=== PATIENT | female | born 1985 | race Caucasian/White ===

== ENCOUNTER 2022-10-14 13:38 | Outpatient (REF) | payer OTHER, SELFPAY ==
[2022-10-14 15:34] LABS: Occult Blood Negative
== END 2022-10-14 13:39 ==
LOC: LAB 13:38
PROVIDERS: PCP Nurse Practitioner; Visit Provider Nurse Practitioner
DX: R19.5 Other fecal abnormalities (principal)
CPT/HCPCS: G0328

== ENCOUNTER 2023-01-13 09:58 | Outpatient (OUT) | payer OTHER, SELFPAY ==
[2023-01-13 11:11] LABS: Anion Gap 14.7; BUN Creatinine Ratio 15.3; Calcium 8.9 mg/dL (8.5-10.1); Carbon Dioxide 26.1 mmol/L (21.0-32.0); Chloride 104 mmol/L (98-107); Estimated GFR (African America >60 (>=60); Estimated GFR (Non-African Ame >60 (>=60); Glucose 93 mg/dL (74-106); Potassium 3.8 mmol/L (3.5-5.1); Sodium 141 mmol/L (136-145)
== END 2023-01-13 09:59 | disposition home or self-care (01) ==
LOC: LAB 10:01
PROVIDERS: PCP Nurse Practitioner; Visit Provider Nurse Practitioner
DX: R42 Dizziness and giddiness (principal)
CPT/HCPCS: 36415; 80048

== ENCOUNTER 2023-03-03 12:07 | Outpatient (OUT) | payer OTHER, SELFPAY ==
--- NOTE | 2023-03-03 12:30 | XR_ITS ---
The [address] [address] Patient Name: ALAN BRAVO MRN: [id number] date: 1985 Sex: F Assigned Patient Location: LAB Current Patient Location: LAB Accession/Order Number: [id number] Exam Date: 03/03/2023 12:20 Report Date: 03/03/2023 13:57 At the request of: MONY SPARROW Procedure: XR abdomen 1V EXAM: XR abdomen 1V HISTORY: left flank pain COMPARISON: None. TECHNIQUE: AP view of the abdomen. FINDINGS: Nonobstructive bowel gas pattern is noted. There is no suspicious calcification. The osseous structures are intact. XR/XR abdomen 1V IMPRESSION: Nonobstructive bowel gas pattern. Electronically authenticated by: JENNIFER TURNER Date: 03/03/2023 13:57
[2023-03-03 12:41] LABS: Bilirubin Urine NEGATIVE (NEGATIVE); Blood Urine NEGATIVE (NEGATIVE); Clarity Urine CLEAR (CLEAR); Color Urine LT. YELLOW (YELLOW); Glucose Urine UA NEGATIVE (NEGATIVE); Ketones Urine NEGATIVE (NEGATIVE); Leukocyte Esterase Urine TRACE (NEGATIVE); Nitrite Urine NEGATIVE (NEGATIVE); Protein Urine NEGATIVE (NEG/TRACE); Urobilinogen Urine 0.2 EU/dL (0.2-1.0); pH Urine 6.5 (5.0-9.0)
[2023-03-03 12:49] LABS: Bacteria Urine NONE SEEN #/HPF (NONE SEEN); Cast Seen? NONE SEEN #/LPF (NONE SEEN); Crystals Seen? None Seen #/HPF (None Seen); Mucus Urine NONE SEEN (NONE SEEN); RBC Urine NONE SEEN #/HPF (0-2); Squamous Epithelial Cell Urine FEW #/LPF (NONE/RARE); WBC Urine NONE SEEN #/HPF (NONE SEEN)
== END 2023-03-03 12:08 | disposition home or self-care (01) ==
LOC: LAB 12:08
PROVIDERS: PCP Nurse Practitioner; Visit Provider Nurse Practitioner
DX: R10.9 Unspecified abdominal pain (principal)
CPT/HCPCS: 74018; 81001; 87086

== ENCOUNTER 2023-10-14 11:36 | Outpatient (OUT) | payer OTHER, SELFPAY ==
[2023-10-14 12:09] LABS: Basophils Percent Auto 0.3 % (0.2-2.0); Eosinophils Absolute Auto 0.1 10^3/uL (0.0-0.7); Eosinophils Percent Auto 1.3 % (0.9-7.0); Hematocrit 38.4 % (36.0-48.0); Hemoglobin 13.2 g/dL (12.0-16.0); Immature Granulocytes Abs Auto 0.03 10^3/uL (0.00-0.03); Immature Granulocytes Pct Auto 0.3 % (0.0-0.5); Lymphocytes Percent Auto 20.6 % (20.5-60.0); Mean Corpuscular HGB Conc 34.4 g/dL (29.9-35.2); Mean Corpuscular Hemoglobin 29.3 pg (26.7-34.0); Mean Corpuscular Volume 85.1 fL (81.0-99.0); Mean Platelet Volume 9.5 fL (9.5-13.5); Monocytes Absolute Auto 0.6 10^3/uL (0.3-0.8); Monocytes Percent Auto 6.1 % (1.7-12.0); Neutrophils Absolute Auto 6.8 10^3/uL (1.4-6.5); Neutrophils Percent Auto 71.4 % (43.0-75.0); Platelet Count 342 10^3/uL (150-450); Red Blood Count 4.51 10^6/uL (4.20-5.40); Red Cell Distribution Width 12.8 % (11.0-15.0); White Blood Count 9.6 10^3/uL (4.0-11.0)
[2023-10-14 12:25] LABS: Estimated Average Glucose 97 mg/dL
[2023-10-14 12:37] LABS: Free T4 0.97 ng/dL (0.76-1.46); HCG Quantitative <1 mIU/mL; Thyroid Stimulating Hormone 1.581 uIU/mL (0.358-3.740)
[2023-10-15 04:08] LABS: DHEA-Sulfate 60.5 ug/dL (57.3-279.2); FSH 8.2 mIU/mL (.)
[2023-10-15 13:12] LABS: Luteinizing Hormone(LH) 4.8 mIU/mL (.)
[2023-10-20 11:08] LABS: DHEA, Serum 242 ng/dL (31-701)
== END 2023-10-14 11:37 | disposition home or self-care (01) ==
LOC: LAB 11:36
PROVIDERS: PCP Nurse Practitioner; Visit Provider Obstetrics & Gynecology
DX: E28.2 Polycystic ovarian syndrome (principal)
CPT/HCPCS: 36415; 82626; 82627; 83001; 83002; 83036; 84439; 84443; 84702; 85025

== ENCOUNTER 2023-10-27 16:52 | Outpatient (OUT) | payer OTHER, SELFPAY ==
--- NOTE | 2023-10-27 16:56 | US_ITS ---
The [address] [address] Patient Name: ALAN BRAVO MRN: [id number] date: 1985 Sex: F Assigned Patient Location: US Current Patient Location: Accession/Order Number: [id number] Exam Date: 10/27/2023 17:06 Report Date: 10/29/2023 07:45 At the request of: BRE MAS Procedure: US pelvis w/ transvaginal EXAMINATION: US pelvis w/ transvaginal HISTORY: Polycystic Ovarian Syndrome E28.2 COMPARISON: Ultrasound pelvis 05/02/2017 TECHNIQUE: Transabdominal and/or transvaginal sonographic examination was performed as indicated by examination type. FINDINGS: UTERUS: Normal size and appearance. Multiple nabothian cysts within sin of cervix, largest is 1.6 cm. Uterus size: 11.0 x 5.8 x 6.3 cm ENDOMETRIUM: Normal homogeneous appearance. Endometrial thickness: 8 mm RIGHT OVARY: Normal size and appearance. Duplex Doppler demonstrates normal waveform and flow; resistive index 0.6. Ovary size: 3.3 x 2.2 x 2.4 cm LEFT OVARY: Not seen. Obscuring overlying bowel gas. . CUL-DE-SAC: Unremarkable. No significant free fluid. BLADDER: Unremarkable. OTHER: None. US/US pelvis w/ transvaginal IMPRESSION: 1. The left ovary was not seen (obscured by overlying bowel gas), but right ovary shows no evidence of polycystic ovarian disease. Electronically authenticated by: ABDIEL GUTIERREZ Date: 10/29/2023 07:45
--- OUTSIDE RECORDS SUMMARY | 2023-10-27 16:56 | XMS_ITS | CCD ---
Author Organization [facility] Care Team Providers Care Electric Meter Reader Name Role Phone MISC, DOCTOR Attending Unavailable MISC, DR STOCKTON Consulting Unavailable MISC, DR STOCKTON Admitting Unavailable AICHHOLZ, DRY KILN FEEDER MONY Primary Care Unavailable KARASIK ., DR OLIVER Consulting Unavailabl e KARASIK ., DR OLIVER Admitting Unavailabl e AICHHOLZ, DRY KILN FEEDER MONY Primary Care Unavailable KARASIK ., DR OLIVER Attending Unavailabl e AICHHOLZ, DRY KILN FEEDER MONY Admitting Unavailable AICHHOLZ, DRY KILN FEEDER MONY Attending Unavailable AICHHOLZ, DRY KILN FEEDER MONY Primary Care Unavailable KARASIK ., DR OLIVER Admitting Unavailabl e AICHHOLZ, DRY KILN FEEDER MONY Primary Care Unavailable KARASIK ., DR OLIVER Attending Unavailabl e AICHHOLZ, DRY KILN FEEDER MONY Admitting Unavailable AICHHOLZ, DRY KILN FEEDER MONY Attending Unavailable AICHHOLZ, DRY KILN FEEDER MONY Consulting Unavailable AICHHOLZ, DRY KILN FEEDER MONY Primary Care Unavailable AICHHOLZ, DRY KILN FEEDER MONY Admitting Unavailable AICHHOLZ, DRY KILN FEEDER MONY Attending Unavailable AICHHOLZ, DRY KILN FEEDER MONY Consulting Unavailable AICHHOLZ, DRY KILN FEEDER MONY Primary Care Unavailable BRE MAS Attending Unavailable Allergies Allergy Classification Reported Allergen(s) Allergy Type Date of Onset Reaction(s) Facility (1 source) Amoxicillin Drug Allergy 04-19-2015 [facility] Repository Problems Active Problems Problem Classification Problem Date Documented Da te Episodic/Chronic Essential hypertension (4 sources) Essential (primary) hypertension; Translations: [ESSENTIAL PRIMARY HYPERTENSION] Onset: 07-18-2022 Chronic Menstrual disorders (1 source) Excessive and frequent menstruation with irregular cycle; Translations: [EXCESS AND FREQ MEN W/IRREG CYCLE] Onset: 07-01-2022 Chronic Nutritional deficiencies (1 source) Vitamin D deficiency, unspecified; Translations: [VITAMIN D DEFICIENCY UNSPECIFIED] Onset: 2022 Chronic Other gastrointestinal disorders (4 sources) Other fecal abnormalities; Translations: [OTHER FECAL ABNORMALITIES] Onset: 09-10-2022 Episodic Other gastrointestinal disorders (4 sources) Diarrhea, unspecified; Translations: [DIARRHEA UNSPECIFIED] Onset: 09-06-2022 Episodic Other nutritional; endocrine; and metabolic disorders (1 source) Obesity, unspecified; Translations: [OBESITY UNSPECIFIED] Onset: 2022 Chronic Other and delivery including normal (4 sources) Encounter for care and examination of lactating mother; Translations: [ENC CARE AND EXAM LACTATING MOTHER] Onset: 09-24-2022 Episodic Past or Other Problems Problem Classification Problem Date Documented Date Episodic/Chronic Immunizations and screening for infectious disease (1 source) Encounter for screening for human papillomavirus (HPV); Translations: [ENC SCREENING HUMAN PAPILLOMAVIRUS] Onset: 11-12-2021 Episodic Other endocrine disorders (4 sources) Endocrine disorder, unspecified; Translations: [ENDOCRINE DISORDER UNSPECIFIED] Onset: 06-27-2022 Episodic Other nutritional; endocrine; and metabolic disorders (1 source) Abnormal weight gain; Translations: [ABNORMAL WEIGHT GAIN] Onset: 07-01-2022 Episodic Other screening for suspected conditions (not mental disorders or infectious disease) (4 sources) Encounter for screening for malignant neoplasm of cervix; Translations: [ENC SCREENING MALIG NEOPLASM CERV] Onset: 11-09-2021 Episodic Other skin disorders (1 source) Hirsutism; Translations: [HIRSUTISM] Onset: 07-01-2022 Episodic Residual codes; unclassified (1 source) Insomnia, unspecified; Translations: [INSOMNIA UNSPECIFIED] Onset: 07-01-2022 Episodic Residual codes; unclassified (1 source) Other amnesia; Translations: [OTHER AMNESIA] Onset: 07-01-2022 Episodic Results Test Name Value Interpretation Reference Range Facil ity OVA AND PARASITE EXAMINATION on 09-12-2022 Ova + Parasite Exam Final report Normal [facility] Comment on above: Result Comment: Thes e results were obtained using wet preparation(s) and trichrome stained smear. This test does not include testing for Cryptosporidium parvum, Cyclospora, or Microsporidia. Performed By: #### O VERA #### [facility] [address] [place] [address] Dr. Awilda Bryant Result 1 Comment Normal [facility] Comment on above: Result Comment: No o va, cysts, or parasites seen. . One negative specimen does not rule out the possibility of a parasitic infection. Performed By: #### O VAPE #### [facility] [address] [place] [address] Dr. Awilda Bryant STOOL CULTUREon 09-10-2022 Campylobacter Culture Final report Normal [facility] Comment on above: Performed By: #### T POAB #### [facility] [address] [place] [address] Dr. Awilda Bryant E coli Shiga Toxin EIA Negative Normal Negative [facility] Comment on above: Performed By: #### T POAB #### [facility] [address] [place] [address] Dr. Awilda Bryant Result 1 Comment Normal [facility] Comment on above: Result Comment: No S almonella or Shigella recovered. Performed By: #### T POAB #### [facility] [address] [place] [address] Dr. Awilda Bryant Result Comment: No C ampylobacter species isolated. Salmonella/Shigella Screen Final report Normal [facility] Comment on above: Performed By: #### T POAB #### [facility] [address] [place] [address] Dr. Awilda Bryant C. DIFF PCRon 09-06-2022 C. DIFFICILE PCR Negative Normal NEGATIVE [facility] Comment on above: Performed By: #### C DIFPOC #### [facility] [address] [place] [address] Dr. Awilda Bryant OCC BLD IMMUNO SCREENon 08-26 OCCULT BLOOD Positive Abnormal NEGATIVE [facility] Comment on above: Performed By: #### C DIFPOC #### [facility] [address] [place] [address] Dr. Awilda Bryant CBC AUTO DIFFon 07-18-2022 BASO # 0.1 103/ul Normal 0.0-0.1 [facility] Comment on above: Performed By: #### C DIFPOC #### [facility] [address] [place] [address] Dr. Awilda Bryant Basophils/100 WBC (Bld) 0.7 % Normal 0.2-2.0 [facility] Comment on above: Performed By: #### C DIFPOC #### [facility] [address] [place] [address] Dr. Awilda Bryant EO # 0.1 103/ul Normal 0.0-0.7 [facility] Comment on above: Performed By: #### C DIFPOC #### [facility] [address] [place] [address] Dr. Awilda Bryant Eosinophils/100 WBC (Bld) 1.9 % Normal 0.9-7.0 [facility] Comment on above: Performed By: #### C DIFPOC #### [facility] [address] [place] [address] Dr. Awilda Bryant Erythrocyte distribution width (RBC) [Ratio] 12.7 % Normal 11.0-15.0 [facility] Comment on above: Performed By: #### C DIFPOC #### [facility] [address] [place] [address] Dr. Awilda Bryant Hematocrit (Bld) [Volume fraction] 41.9 % Normal 36.0-48.0 [facility] Comment on above: Performed By: #### C DIFPOC #### [facility] [address] [place] [address] Dr. Awilda Bryant Hemoglobin (Bld) [Mass/Vol] 14.7 g/dL Normal 12.0-16.0 [facility] Comment on above: Performed By: #### C DIFPOC #### [facility] [address] [place] [address] Dr. Awilda Bryant IG # 0.02 10e3/ul Normal 0.00-0.03 [facility] Comment on above: Performed By: #### C DIFPOC #### [facility] [address] [place] [address] Dr. Awilda Bryant IG % 0.3 % Normal 0.0-0.5 [facility] Comment on above: Performed By: #### C DIFPOC #### [facility] [address] [address] [address] Awilda Bryant LYMPH # 2.1 103/ul Normal 1.2-3.8 [facility] Comment on above: Performed By: #### C DIFPOC #### [facility] [address] [place] [address] Dr. Awilda Bryant Lymphocytes/100 WBC (Bld) 31.4 % Normal 20.5-60.0 [facility] Comment on above: Performed By: #### C DIFPOC #### [facility] [address] [place] [address] Dr. Awilda Bryant MANUAL DIFF REQ NO Normal [facility] Comment on above: Performed By: #### C DIFPOC #### [facility] [address] [place] [address] Dr. Awilda Bryant MCH (RBC) [Entitic mass] 29.7 pg Normal 26.7-34.0 [facility] Comment on above: Performed By: #### C DIFPOC #### [facility] [address] [place] [address] Dr. Awilda Bryant MCHC (RBC) [Mass/Vol] 35.1 g/dL Normal 29.9-35.2 [facility] Comment on above: Performed By: #### C DIFPOC #### [facility] [address] [place] [address] Dr. Awilda Bryant MCV (RBC) [Entitic vol] 84.6 fL Normal 81.0-99.0 [facility] Comment on above: Performed By: #### C DIFPOC #### [facility] [address] [place] [address] Dr. Awilda Bryant MONO # 0.5 103/ul Normal 0.3-0.8 [facility] Comment on above: Performed By: #### C DIFPOC #### [facility] [address] [place] [address] Dr. Awilda Bryant Monocytes/100 WBC (Bld) 7.5 % Normal 1.7-12.0 [facility] Comment on above: Performed By: #### C DIFPOC #### [facility] [address] [address] [address] Awilda Bryant NEUT # 4.0 103/ul Normal 1.4-6.5 [facility] Comment on above: Performed By: #### C DIFPOC #### [facility] [address] [address] [address] Awilda Bryant Neutrophils/100 WBC (Bld) 58.2 % Normal 43.0-75.0 [facility] Comment on above: Performed By: #### C DIFPOC #### [facility] [address] [place] [address] Dr. Awilda Bryant Platelet mean volume (Bld) [Entitic vol] 9.8 fL Normal 9.5-13.5 [facility] Comment on above: Performed By: #### C DIFPOC #### [facility] [address] [place] [address] Dr. Awilda Bryant PLT 344 103/ul Normal 150-450 [facility] Comment on above: Performed By: #### C DIFPOC #### [facility] [address] [place] [address] Dr. Awilda Bryant RBC 4.95 106/ul Normal 4.20-5.40 [facility] Comment on above: Performed By: #### C DIFPOC #### [facility] [address] [place] [address] Dr. Awilda Bryant WBC 6.8 103/ul Normal 4.0-11.0 [facility] Comment on above: Performed By: #### C DIFPOC #### [facility] [address] [place] [address] Dr. Awilda Bryant LIPID PROFILEon 07-18-2022 CHOL-HDL RATIO NORM SEE BELOW Normal [facility] Comment on above: Result Comment: 3.3 - 4.4 LOW RISK 4.4 - 7.1 AVERAGE RISK 7.1 - 11.0 MODERATE RISK >11.0 HIGH RISK Performed By: #### T POAB #### [facility] [address] [place] [address] Dr. Awilda Bryant Cholesterol [Mass/Vol] 159 mg/dL Normal <=200 [facility] Comment on above: Performed By: #### T POAB #### [facility] [address] [address] [address] Awilda Bryant Cholesterol in HDL [Mass/Vol] 40 mg/dL Normal 40-60 [facility] Comment on above: Performed By: #### T POAB #### [facility] [address] [address] [address] Awilda Bryant Cholesterol in LDL [Mass/Vol] 102.2 mg/dL Normal [facility] Comment on above: Performed By: #### T POAB #### [facility] [address] [address] [address] Awilda Bryant Cholesterol.total/C holesterol in HDL [Mass ratio] 4.0 {ratio} Normal [facility] Comment on above: Performed By: #### T POAB #### [facility] [address] [address] [address] Awilda Bryant HDL NORMAL > or = 60 mg/dl - LO W CARDIOVASCULAR RISK <40 mg/dl - HIGH CARDIOVASCULAR RISK Normal [facility] Comment on above: Performed By: #### T POAB #### [facility] [address] [address] [address] Awilda Bryant LDL CALC NORMAL SEE BELOW Normal [facility] Comment on above: Result Comment: <100 mg/dl OPTIMAL 100 - 129 mg/dl NEAR OR ABOVE OPTIMAL 130 - 159 mg/dl BORDERLINE HIGH 160 - 189 mg/dl HIGH >190 mg/dl VERY HIGH Performed By: #### T POAB #### [facility] [address] [address] [address] Awilda Bryant Triglyceride [Mass/Vol] 84 mg/dL Normal <=150 [facility] Comment on above: Performed By: #### T POAB #### [facility] [address] [address] [address] Awilda Bryant VLDL CALC 16.8 mg/dL Normal [facility] Comment on above: Performed By: #### T POAB #### [facility] [address] [address] [address] Awilda Bryant PROF 14(COMP METB)on 023 Albumin [Mass/Vol] 4.0 g/dL Normal 3.4-5.0 [facility] Comment on above: Performed By: #### C MP, TSH, LIPID #### [facility] [address] [address] [address] Awilda Bryant Albumin/Globulin [Mass ratio] 1.0 {ratio} Normal [facility] Comment on above: Performed By: #### C MP, TSH, LIPID #### [facility] [address] [address] [address] Awilda Bryant ALP [Catalytic activity/Vol] 62 U/L Normal 46-116 [facility] Comment on above: Performed By: #### C MP, TSH, LIPID #### [facility] [address] [place] [address] Dr. Awilda Bryant ALT [Catalytic activity/Vol] 21 U/L Normal 14-59 [facility] Comment on above: Performed By: #### C MP, TSH, LIPID #### [facility] [address] [address] [address] Awilda Bryant Anion gap [Moles/Vol] 11.9 mmol/L Normal [facility] Comment on above: Performed By: #### C MP, TSH, LIPID #### [facility] [address] [place] [address] Dr. Awilda Bryant AST [Catalytic activity/Vol] 23 U/L Normal 15-37 [facility] Comment on above: Performed By: #### C MP, TSH, LIPID #### [facility] [address] [address] [address] Awilda Bryant Bilirubin [Mass/Vol] 0.6 mg/dL Normal 0.2-1.0 [facility] Comment on above: Performed By: #### C MP, TSH, LIPID #### [facility] [address] [address] [address] Awilda Bryant Calcium [Mass/Vol] 8.8 mg/dL Normal 8.5-10.1 [facility] Comment on above: Performed By: #### C MP, TSH, LIPID #### [facility] [address] [address] [address] Awilda Bryant Chloride [Moles/Vol] 102 mmol/L Normal 98-107 [facility] Comment on above: Performed By: #### C MP, TSH, LIPID #### [facility] [address] [address] [address] Awilda Bryant CO2 [Moles/Vol] 27.5 mmol/L Normal 21.0-32.0 [facility] Comment on above: Performed By: #### C MP, TSH, LIPID #### [facility] [address] [address] [address] Awilda Bryant Creatinine [Mass/Vol] 0.60 mg/dL Normal 0.55-1.02 [facility] Comment on above: Performed By: #### C MP, TSH, LIPID #### [facility] [address] [address] [address] Awilda Bryant EGFR-AF OMANI >60 Normal >=60 [facility] Comment on above: Performed By: #### C MP, TSH, LIPID #### [facility] [address] [address] [address] Awilda Bryant EGFR-NON AF OMANI >60 Normal >=60 [facility] Comment on above: Performed By: #### C MP, TSH, LIPID #### [facility] [address] [address] [address] Awilda Bryant Globulin (S) [Mass/Vol] 3.9 g/dL Normal [facility] Comment on above: Performed By: #### C MP, TSH, LIPID #### [facility] [address] [address] [address] Awilda Bryant Glucose [Mass/Vol] 96 mg/dL Normal 74-106 [facility] Comment on above: Performed By: #### C MP, TSH, LIPID #### [facility] [address] [address] [address] Awilda Bryant Potassium [Moles/Vol] 3.4 mmol/L Critically low 3.5-5.1 [facility] Comment on above: Performed By: #### C MP, TSH, LIPID #### [facility] [address] [place] [address] Dr. Awilda Bryant Protein [Mass/Vol] 7.9 g/dL Normal 6.4-8.2 [facility] Comment on above: Performed By: #### C MP, TSH, LIPID #### [facility] [address] [place] [address] Dr. Awilda Bryant Sodium [Moles/Vol] 138 mmol/L Normal 136-145 [facility] Comment on above: Performed By: #### C MP, TSH, LIPID #### [facility] [address] [place] [address] Dr. Awilda Bryant Urea nitrogen [Mass/Vol] 15.0 mg/dL Normal 7.0-18.0 [facility] Comment on above: Performed By: #### C MP, TSH, LIPID #### [facility] [address] [place] [address] Dr. Awilda Bryant Urea nitrogen/Creatinine [Mass ratio] 25.0 mg/mg Normal [facility] Comment on above: Performed By: #### C MP, TSH, LIPID #### [facility] [address] [place] [address] Dr. Awilda Bryant TSHon 07-18-2022 TSH 1.349 uIU/mL Normal 0.358-3.740 [facility] Comment on above: Performed By: #### T POAB #### [facility] [address] [place] [address] Dr. Awilda Bryant UA RANDOM W/MICROSCOPICon BACTERIA NONE SEEN Normal NONE SEEN [facility] Comment on above: Performed By: #### U AMIC #### [facility] [address] [place] [address] Dr. Awilda Bryant Bilirubin Ql (U) Negative Normal NEGATIVE [facility] Comment on above: Performed By: #### U AMIC #### [facility] [address] [place] [address] Dr. Awilda Bryant CAST NONE SEEN Normal NONE SEEN [facility] Comment on above: Performed By: #### U AMIC #### [facility] [address] [address] [address] Awilda Bryant Clarity (U) CLEAR Normal CLEAR [facility] Comment on above: Performed By: #### U AMIC #### [facility] [address] [address] [address] Awilda Bryant Color (U) YELLOW Normal YELLOW [facility] Comment on above: Performed By: #### U AMIC #### [facility] [address] [address] [address] Awilda Bryant Crystals LM Nom (Urine sed) NONE SEEN Normal NONE SEEN [facility] Comment on above: Performed By: #### U AMIC #### [facility] [address] [place] [address] Dr. Awilda Bryant Epithelial cells LM Ql (Urine sed) NONE SEEN Normal NONE SEEN /RARE [facility] Comment on above: Performed By: #### U AMIC #### [facility] [address] [place] [address] Dr. Awilda Bryant Glucose Ql (U) Negative Normal NEGATIVE [facility] Comment on above: Performed By: #### U AMIC #### [facility] [address] [address] [address] Awilda Bryant Hemoglobin Ql (U) Negative Normal NEGATIVE [facility] Comment on above: Performed By: #### U AMIC #### [facility] [address] [address] [address] Awilda Bryant Ketones Ql (U) Negative Normal NEGATIVE [facility] Comment on above: Performed By: #### U AMIC #### [facility] [address] [address] [address] Awilda Bryant LEUKOCYTES Negative Normal NEGATIVE [facility] Comment on above: Performed By: #### U AMIC #### [facility] [address] [place] [address] Dr. Awilda Bryant MUCOUS NONE SEEN Normal NONE SEEN [facility] Comment on above: Performed By: #### U AMIC #### [facility] [address] [address] [address] Awilda Bryant Nitrite Ql (U) Negative Normal NEGATIVE [facility] Comment on above: Performed By: #### U AMIC #### [facility] [address] [place] [address] Dr. Awilda Bryant pH (U) 6.0 [pH] Normal 5-9 [facility] Comment on above: Performed By: #### U AMIC #### [facility] [address] [place] [address] Dr. Awilda Bryant RBC 0-2 Normal 0-2 [facility] Comment on above: Performed By: #### U AMIC #### [facility] [address] [place] [address] Dr. Awilda Bryant SPEC GRAVITY 1.025 Normal 1.005-<=1.025 [facility] Comment on above: Performed By: #### U AMIC #### [facility] [address] [place] [address] Dr. Awilda Bryant UA PROTEIN Negative Normal NEGATIVE/ TRACE [facility] Comment on above: Performed By: #### U AMIC #### [facility] [address] [place] [address] Dr. Awilda Bryant Urobilinogen Qn (U) 0.2 {Clarita'U}/dL Normal 0.2 - 1. 0 [facility] Comment on above: Performed By: #### U AMIC #### [facility] [address] [place] [address] Dr. Awilda Bryant WBC NONE SEEN Normal NONE SEEN [facility] Comment on above: Performed By: #### U AMIC #### [facility] [address] [place] [address] Dr. Awilda Bryant VITAMIN D 25 OHon 07-18-2022 VIT D 25-OH 26.4 ng/mL Normal [facility] Comment on above: Performed By: #### C DIFPOC #### [facility] [address] [place] [address] Dr. Awilda Bryant VIT D RANGES SEE BELOW Normal [facility] Comment on above: Result Comment: <20 ng/mL Vit D deficient 20 - <30 ng/mL Vit D insufficient 30 - 100 ng/mL Vit D sufficient >100 ng/mL Potential Toxicity Performed By: #### C DIFPOC #### [facility] [address] [place] [address] Dr. Awilda Bryant DHEA-SULFATEon 06-28-2022 DHEA-Sulfate 79.2 ug/dL Normal 57.3-279.2 [facility] Comment on above: Performed By: #### D HEASUL #### [facility] [address] [place] [address] Dr. Awilda Bryant ESTRADIOLon 06-28-2022 Estradiol 38.9 pg/mL Normal [facility] Comment on above: Result Comment: Adul t Female: Follicular phase 12.5 - 166.0 Ovulation phase 85.8 - 498.0 Luteal phase 43.8 - 211.0 Postmenopausal <6.0 - 54.7 1st trimester 215.0 - >4300.0 Perla ECLIA methodology Performed By: #### E STRADI #### [facility] [address] [place] [address] Dr. Awilda Bryant FSHon 06-28-2022 FSH 8.9 mIU/mL Normal [facility] Comment on above: Result Comment: Adul t Female: Follicular phase 3.5 - 12.5 Ovulation phase 4.7 - 21.5 Luteal phase 1.7 - 7.7 Postmenopausal 25.8 - 134.8 Performed By: #### C DIFPOC #### [facility] [address] [place] [address] Dr. Awilda Bryant PROLACTINon 06-28-2022 Prolactin 9.9 ng/mL Normal 4.8-23.3 [facility] Comment on above: Performed By: #### P ROLAC #### [facility] [address] [place] [address] Dr. Awilda Bryant TESTOSTERONE, TOTALon 2022 Testosterone [Mass/Vol] 18 ng/dL Normal 8-60 [facility] Comment on above: Performed By: #### T POAB #### [facility] [address] [place] [address] Dr. Awilda Bryant THYROGLOBULIN ABon Thyroglobulin Antibody <1.0 Normal 0.0-0.9 [facility] Comment on above: Result Comment: Thyr oglobulin Antibody measured by [employer] Methodology Performed By: #### T HYGAB #### [facility] [address] [place] [address] Dr. Awilda Bryant THYROID PEROXIDASE ABon 03-0 Thyroid Peroxidase (TPO) Ab <9 Normal 0-34 [facility] Comment on above: Performed By: #### T POAB #### [facility] [address] [place] [address] Dr. Awilda Bryant CBC AUTO DIFFon 06-27-2022 BASO # 0.1 103/ul Normal 0.0-0.1 [facility] Comment on above: Performed By: #### T POAB #### [facility] [address] [place] [address] Dr. Awilda Bryant Basophils/100 WBC (Bld) 0.9 % Normal 0.2-2.0 [facility] Comment on above: Performed By: #### T POAB #### [facility] [address] [place] [address] Dr. Awilda Bryant EO # 0.2 103/ul Normal 0.0-0.7 [facility] Comment on above: Performed By: #### T POAB #### [facility] [address] [place] [address] Dr. Awilda Bryant Eosinophils/100 WBC (Bld) 2.7 % Normal 0.9-7.0 [facility] Comment on above: Performed By: #### T POAB #### [facility] [address] [place] [address] Dr. Awilda Bryant Erythrocyte distribution width (RBC) [Ratio] 12.6 % Normal 11.0-15.0 [facility] Comment on above: Performed By: #### T POAB #### [facility] [address] [place] [address] Dr. Awilda Bryant Hematocrit (Bld) [Volume fraction] 42.0 % Normal 36.0-48.0 [facility] Comment on above: Performed By: #### T POAB #### [facility] [address] [address] [address] Awilda Bryant Hemoglobin (Bld) [Mass/Vol] 14.6 g/dL Normal 12.0-16.0 [facility] Comment on above: Performed By: #### T POAB #### [facility] [address] [address] [address] Awilda Bryant IG # 0.02 10e3/ul Normal 0.00-0.03 [facility] Comment on above: Performed By: #### T POAB #### [facility] [address] [address] [address] Awilda Bryant IG % 0.3 % Normal 0.0-0.5 [facility] Comment on above: Performed By: #### T POAB #### [facility] [address] [address] [address] Awilda Bryant LYMPH # 2.1 103/ul Normal 1.2-3.8 [facility] Comment on above: Performed By: #### T POAB #### [facility] [address] [address] [address] Awilda Bryant Lymphocytes/100 WBC (Bld) 31.2 % Normal 20.5-60.0 [facility] Comment on above: Performed By: #### T POAB #### [facility] [address] [address] [address] Awilda Bryant MANUAL DIFF REQ NO Normal [facility] Comment on above: Performed By: #### T POAB #### [facility] [address] [address] [address] Awilda Bryant MCH (RBC) [Entitic mass] 29.1 pg Normal 26.7-34.0 [facility] Comment on above: Performed By: #### T POAB #### [facility] [address] [address] [address] Awilda Bryant MCHC (RBC) [Mass/Vol] 34.8 g/dL Normal 29.9-35.2 [facility] Comment on above: Performed By: #### T POAB #### [facility] [address] [address] [address] Awilda Bryant MCV (RBC) [Entitic vol] 83.8 fL Normal 81.0-99.0 [facility] Comment on above: Performed By: #### T POAB #### [facility] [address] [place] [address] Dr. Awilda Bryant MONO # 0.5 103/ul Normal 0.3-0.8 [facility] Comment on above: Performed By: #### T POAB #### [facility] [address] [place] [address] Dr. Awilda Bryant Monocytes/100 WBC (Bld) 6.8 % Normal 1.7-12.0 [facility] Comment on above: Performed By: #### T POAB #### [facility] [address] [place] [address] Dr. Awilda Bryant NEUT # 3.9 103/ul Normal 1.4-6.5 [facility] Comment on above: Performed By: #### T POAB #### [facility] [address] [place] [address] Dr. Awilda Bryant Neutrophils/100 WBC (Bld) 58.1 % Normal 43.0-75.0 [facility] Comment on above: Performed By: #### T POAB #### [facility] [address] [place] [address] Dr. Awilda Bryant Platelet mean volume (Bld) [Entitic vol] 9.2 fL Critically low 9.5-13.5 [facility] Comment on above: Performed By: #### T POAB #### [facility] [address] [place] [address] Dr. Awilda Bryant PLT 412 103/ul Normal 150-450 [facility] Comment on above: Performed By: #### T POAB #### [facility] [address] [place] [address] Dr. Awilda Bryant RBC 5.01 106/ul Normal 4.20-5.40 [facility] Comment on above: Performed By: #### T POAB #### [facility] [address] [place] [address] Dr. Awilda Bryant WBC 6.7 103/ul Normal 4.0-11.0 [facility] Comment on above: Performed By: #### T POAB #### [facility] [address] [place] [address] Dr. Awilda Bryant FREE T3on 06-27-2022 FREE T3 2.68 pg/mlL Normal 2.18-3.98 [facility] Comment on above: Performed By: #### T POAB #### [facility] [address] [place] [address] Dr. Awilda Bryant FREE T4on 06-27-2022 Free T4 [Mass/Vol] 1.24 ng/dL Normal 0.76-1.46 [facility] Comment on above: Performed By: #### C DIFPOC #### [facility] [address] [place] [address] Dr. Awilda Bryant LIPID PROFILEon 06-27-2022 CHOL-HDL RATIO NORM SEE BELOW Normal [facility] Comment on above: Result Comment: 3.3 - 4.4 LOW RISK 4.4 - 7.1 AVERAGE RISK 7.1 - 11.0 MODERATE RISK >11.0 HIGH RISK Performed By: #### T POAB #### [facility] [address] [place] [address] Dr. Awilda Bryant Cholesterol [Mass/Vol] 179 mg/dL Normal <=200 [facility] Comment on above: Performed By: #### T POAB #### [facility] [address] [place] [address] Dr. Awilda Bryant Cholesterol in HDL [Mass/Vol] 44 mg/dL Normal 40-60 [facility] Comment on above: Performed By: #### T POAB #### [facility] [address] [place] [address] Dr. Awilda Bryant Cholesterol in LDL [Mass/Vol] 111.8 mg/dL Normal [facility] Comment on above: Performed By: #### T POAB #### [facility] [address] [place] [address] Dr. Awilda Bryant Cholesterol.total/C holesterol in HDL [Mass ratio] 4.1 {ratio} Normal [facility] Comment on above: Performed By: #### T POAB #### [facility] [address] [address] [address] Awilda Bryant HDL NORMAL > or = 60 mg/dl - LO W CARDIOVASCULAR RISK <40 mg/dl - HIGH CARDIOVASCULAR RISK Normal [facility] Comment on above: Performed By: #### T POAB #### [facility] [address] [address] [address] Awilda Bryant LDL CALC NORMAL SEE BELOW Normal [facility] Comment on above: Result Comment: <100 mg/dl OPTIMAL 100 - 129 mg/dl NEAR OR ABOVE OPTIMAL 130 - 159 mg/dl BORDERLINE HIGH 160 - 189 mg/dl HIGH >190 mg/dl VERY HIGH Performed By: #### T POAB #### [facility] [address] [address] [address] Awilda Bryant Triglyceride [Mass/Vol] 116 mg/dL Normal <=150 [facility] Comment on above: Performed By: #### T POAB #### [facility] [address] [address] [address] Awilda Bryant VLDL CALC 23.2 mg/dL Normal [facility] Comment on above: Performed By: #### T POAB #### [facility] [address] [place] [address] Dr. Awilda Bryant PROF 14(COMP METB)on 023 Albumin [Mass/Vol] 3.9 g/dL Normal 3.4-5.0 [facility] Comment on above: Performed By: #### T POAB #### [facility] [address] [address] [address] Awilda Bryant Albumin/Globulin [Mass ratio] 1.1 {ratio} Normal [facility] Comment on above: Performed By: #### T POAB #### [facility] [address] [address] [address] Awilda Bryant ALP [Catalytic activity/Vol] 70 U/L Normal 46-116 [facility] Comment on above: Performed By: #### T POAB #### [facility] [address] [address] [address] Awilda Bryant ALT [Catalytic activity/Vol] 22 U/L Normal 14-59 [facility] Comment on above: Performed By: #### T POAB #### [facility] [address] [address] [address] Awilda Bryant Anion gap [Moles/Vol] 11.5 mmol/L Normal [facility] Comment on above: Performed By: #### T POAB #### [facility] [address] [address] [address] Awilda Bryant AST [Catalytic activity/Vol] 16 U/L Normal 15-37 [facility] Comment on above: Performed By: #### T POAB #### [facility] [address] [place] [address] Dr. Awilda Bryant Bilirubin [Mass/Vol] 0.5 mg/dL Normal 0.2-1.0 [facility] Comment on above: Performed By: #### T POAB #### [facility] [address] [address] [address] Awilda Bryant Calcium [Mass/Vol] 9.3 mg/dL Normal 8.5-10.1 [facility] Comment on above: Performed By: #### T POAB #### [facility] [address] [place] [address] Dr. Awilda Bryant Chloride [Moles/Vol] 104 mmol/L Normal 98-107 [facility] Comment on above: Performed By: #### T POAB #### [facility] [address] [address] [address] Awilda Bryant CO2 [Moles/Vol] 28.3 mmol/L Normal 21.0-32.0 [facility] Comment on above: Performed By: #### T POAB #### [facility] [address] [address] [address] Awilda Bryant Creatinine [Mass/Vol] 0.52 mg/dL Critically low 0.55-1.02 [facility] Comment on above: Performed By: #### T POAB #### [facility] [address] [address] [address] Awilda Bryant EGFR-AF OMANI >60 Normal >=60 [facility] Comment on above: Performed By: #### T POAB #### [facility] [address] [address] [address] Awilda Bryant EGFR-NON AF OMANI >60 Normal >=60 [facility] Comment on above: Performed By: #### T POAB #### [facility] [address] [address] [address] Awilda Bryant Globulin (S) [Mass/Vol] 3.6 g/dL Normal [facility] Comment on above: Performed By: #### T POAB #### [facility] [address] [address] [address] Awilda Bryant Glucose [Mass/Vol] 105 mg/dL Normal 74-106 [facility] Comment on above: Performed By: #### T POAB #### [facility] [address] [address] [address] Awilda Bryant Potassium [Moles/Vol] 3.8 mmol/L Normal 3.5-5.1 [facility] Comment on above: Performed By: #### T POAB #### [facility] [address] [address] [address] Awilda Bryant Protein [Mass/Vol] 7.5 g/dL Normal 6.4-8.2 [facility] Comment on above: Performed By: #### T POAB #### [facility] [address] [address] [address] Awilda Bryant Sodium [Moles/Vol] 140 mmol/L Normal 136-145 [facility] Comment on above: Performed By: #### T POAB #### [facility] [address] [address] [address] Awilda Bryant Urea nitrogen [Mass/Vol] 16.0 mg/dL Normal 7.0-18.0 [facility] Comment on above: Performed By: #### T POAB #### [facility] [address] [place] [address] Dr. Awilda Bryant Urea nitrogen/Creatinine [Mass ratio] 30.8 mg/mg Normal [facility] Comment on above: Performed By: #### T POAB #### [facility] [address] [place] [address] Dr. Awilda Bryant TSHon 06-27-2022 TSH 1.228 uIU/mL Normal 0.358-3.740 [facility] Comment on above: Performed By: #### T POAB #### [facility] [address] [place] [address] Dr. Awilda Bryant VITAMIN B12on 06-27-2022 Cobalamin (Vitamin B12) [Mass/Vol] 323.0 pg/mL Normal 193.0-986.0 [facility] Comment on above: Performed By: #### C DIFPOC #### [facility] [address] [place] [address] Dr. Awilda Bryant VITAMIN D 25 OHon 06-27-2022 VIT D 25-OH 26.9 ng/mL Normal [facility] Comment on above: Performed By: #### T POAB #### [facility] [address] [place] [address] Dr. Awilda Bryant VIT D RANGES SEE BELOW [facility] Comment on above: Result Comment: <20 ng/mL Vit D deficient 20 - <30 ng/mL Vit D insufficient 30 - 100 ng/mL Vit D sufficient >100 ng/mL Potential Toxicity Performed By: #### T POAB #### [facility] [address] [place] [address] Dr. Awilda Bryant PAP ACOG PANEL 2: 30 to 65on 11-13-2021 . . Normal [facility] Comment on above: Result Comment: Perf ormed at: WB Performed By: #### [id number] #### [facility] [address] [place] [address] Dr. Awilda Bryant Age Gdln ACOG Testing 30-65 Normal [facility] Comment on above: Performed By: #### [id number] #### [facility] [address] [place] [address] Dr. Awilda Bryant DIAGNOSIS: Comment Normal [facility] Comment on above: Result Comment: NEGA TIVE FOR INTRAEPITHELIAL LESION OR MALIGNANCY. Performed at: WB Performed By: #### [id number] #### [facility] [address] [place] [address] Dr. Awilda Bryant HPV Aptima Negative Normal Negative [facility] Comment on above: Result Comment: This nucleic acid amplification test detects fourteen high-risk HPV types (16,18,31,33,35,39,45,51,52,56,58,59,66,68) without differentiation. Performed at: =G Performed By: #### [id number] #### [facility] [address] [place] [address] Dr. Awilda Bryant Methodology: Comment Normal [facility] Comment on above: Result Comment: This liquid based ThinPrep(R) pap test was screened with the use of an image guided system. Performed at: WB Performed By: #### [id number] #### [facility] [address] [place] [address] Dr. Awilda Bryant Note: Comment Normal [facility] Comment on above: Result Comment: The Pap smear is a screening test designed to aid in the detection of premalignant and malignant conditions of the uterine cervix. It is not a diagnostic procedure and should not be used as the sole means of detecting cervical cancer. Both false-positive and false-negative reports do occur. . Performed at: WB Performed By: #### [id number] #### [facility] [address] [place] [address] Dr. Awilda Bryant Performed by: Comment Normal [facility] Comment on above: Result Comment: Isi Shook, Driver Material Handler (ASCP) Performed at: WB Performed By: #### [id number] #### [facility] [address] [place] [address] Dr. Awilda Bryant Specimen adequacy: Comment Normal [facility] Comment on above: Result Comment: Sati sfactory for evaluation. Endocervical and/or squamous metaplastic cells (endocervical component) are present. Performed at: WB Performed By: #### [id number] #### [facility] [address] [address] [address] Awilda Bryant Encounters Encounter Date Encounter Type Care Provider Facility Start: 10-08-2023 End: 10-08-2023 ambulatory BRE MAS Not Available Start: 09-24-2022 End: 09-24-[address] BENITO BURTON . Facility:[facility] Start: 09-10-2022 End: 09-11-2022 ambulatory MIKE SPARROW Facility:[facility] Start: 09-06-2022 End: 09-07-2022 ambulatory MIKE SPARROW Facility:[facility] Start: 07-18-2022 End: 07-19-2022 ambulatory MIKE SPARROW Facility:[facility] Start: 06-27-2022 End: 06-28-[address] DOCTOR PUENTE Facility:[facility] Start: 11-09-2021 End: 11-09-[address] BENITO BURTON . Facility:[facility] Payers Date Payer Category Payer Unknown [id number] 2.16.84 [id number] 1984 Unknown [id number] 2.16.84 [id number] 1984 Unknown [id number] 2.16.84 [id number] 1984 Unknown [id number] 2.16.84 [id number] 1984 Unknown [id number] 2.16.84 [id number] 1984 Unknown [id number] [id number] 1984 Unknown [id number] 2.16.84 [id number] 1959 Unknown [id number] Summary Purpose Family History No Family History Records FoundNo Family History Records Found Advance Directives No Advanced Directives Records FoundNo Advanced Directives Records Found Additional Source Comments INFORMATION SOURCE (unrecogn ized section and content) DATE CREATED AUTHOR 10/04/2022 [facility] DATE CREATED AUTHOR AUTHOR'S ELA GUALLPASHIVA 10/09/2023 [facility] FOR RECORDS PERTAINING TO PATIENTS WHO ARE OR HAVE BEEN ENROLLED IN A CHEMICAL DEPENDENCY/SUBSTANCEABUSE PROGRAM, SOME INFORMATION MAY BE OMITTED. This clinical summary was aggregated from multiple sources. Caution should be exercised in using it in the provision of clinical care. This summary normalizes information from multiple sources, and as a consequence, information in this document may materially change the coding, format and clinical context of patient data. In addition, data may be omitted in some cases. CLINICAL DECISIONS SHOULD BE BASED ON THE PRIMARY CLINICAL RECORDS. [facility]. provides no warranty or guarantee of the accuracy or completeness of information in this document.
== END 2023-10-27 16:53 | disposition home or self-care (01) ==
LOC: US 16:52
PROVIDERS: PCP Obstetrics & Gynecology; Visit Provider Obstetrics & Gynecology
DX: E28.2 Polycystic ovarian syndrome (principal)
CPT/HCPCS: 76830; 76856

== ENCOUNTER 2023-12-05 08:00 | Outpatient (OUT) | payer OTHER, SELFPAY ==
--- OUTSIDE RECORDS SUMMARY | 2023-12-05 08:05 | XMS_ITS | CCD ---
Author Organization [facility] Care Team Providers Care [employer] Lecturer Name Role Phone MISC, DOCTOR Attending Unavailable MISC, DR STOCKTON Consulting Unavailable MISC, DR STOCKTON Admitting Unavailable AICHHOLZ, MANAGER TELECOM MONY Primary Care Unavailable KARASIK ., DR OLIVER Consulting Unavailabl e KARASIK ., DR OLIVER Admitting Unavailabl e AICHHOLZ, MANAGER TELECOM MONY Primary Care Unavailable KARASIK ., DR OLIVER Attending Unavailabl e AICHHOLZ, MANAGER TELECOM MONY Admitting Unavailable AICHHOLZ, MANAGER TELECOM MONY Attending Unavailable AICHHOLZ, MANAGER TELECOM MONY Primary Care Unavailable KARASIK ., DR OLIVER Admitting Unavailabl e AICHHOLZ, MANAGER TELECOM MONY Primary Care Unavailable KARASIK ., DR OLIVER Attending Unavailabl e AICHHOLZ, MANAGER TELECOM MONY Admitting Unavailable AICHHOLZ, MANAGER TELECOM MONY Attending Unavailable AICHHOLZ, MANAGER TELECOM MONY Consulting Unavailable AICHHOLZ, MANAGER TELECOM MONY Primary Care Unavailable AICHHOLZ, MANAGER TELECOM MONY Admitting Unavailable AICHHOLZ, MANAGER TELECOM MONY Attending Unavailable AICHHOLZ, MANAGER TELECOM MONY Consulting Unavailable AICHHOLZ, MANAGER TELECOM MONY Primary Care Unavailable BRE MAS Attending Unavailable Allergies Allergy Classification Reported Allergen(s) Allergy Type Date of Onset Reaction(s) Facility (1 source) Amoxicillin Drug Allergy 04-19-2015 [facility] Repository Problems Active Problems Problem Classification Problem [...] + Parasite Exam Final report Normal [facility] Comment on above: Result Comment: Thes e results were obtained using wet preparation(s) and trichrome stained smear. This test does not include testing for Cryptosporidium parvum, Cyclospora, or Microsporidia. Performed By: #### O VERA #### [facility] [address] [place] [address] Dr. Awilda Bryant Result 1 Comment Normal [facility] Comment on above: Result Comment: No o va, cysts, or parasites seen. . One negative specimen does not rule out the possibility of a parasitic infection. Performed By: #### O VAPE #### [facility] [address] [place] [address] Dr. Awilda Bryant STOOL CULTUREon 09-10-2022 Campylobacter Culture Final report Normal [facility] [place] Comment on above: Performed By: #### T POAB #### [facility] [address] [place] [address] Dr. Awilda Bryant E coli Shiga Toxin EIA Negative Normal Negative [facility] Comment on above: Performed By: #### T POAB #### [facility] [address] [place] [address] Dr. Awilda Bryant Result 1 Comment Normal [facility] Comment on above: Result Comment: No S almonella or Shigella recovered. Performed By: #### T POAB #### [facility] [address] [place] [address] Dr. Awilda Bryant Result Comment: No C ampylobacter species isolated. Salmonella/Shigella Screen Final report Normal [facility] Comment on above: Performed By: #### T POAB #### [facility] [address] [place] [address] Dr. Awilda Bryant C. DIFF PCRon 09-06-2022 C. DIFFICILE PCR Negative Normal NEGATIVE [facility] Comment on above: Performed By: #### C DIFPOC #### [facility] [address] [place] [address] Dr. Awilda Bryant OCC BLD IMMUNO SCREENon 08-26 OCCULT BLOOD Positive Abnormal NEGATIVE [facility] Comment on above: Performed By: #### C DIFPOC #### [facility] [address] [place] [address] Dr. Awilda Bryant CBC AUTO DIFFon 07-18-2022 BASO # 0.1 103/ul Normal 0.0-0.1 [facility] [place] Comment on above: Performed By: #### C DIFPOC #### [facility] [address] [place] [address] Dr. Awilda Bryant Basophils/100 WBC (Bld) 0.7 % Normal 0.2-2.0 [facility] [place] Comment on above: Performed By: #### C DIFPOC #### [facility] [address] [place] [address] Dr. Awilda Bryant EO # 0.1 103/ul Normal 0.0-0.7 [facility] Comment on above: Performed By: #### C DIFPOC #### [facility] [address] [place] [address] Dr. Awilda Bryant Eosinophils/100 WBC (Bld) 1.9 % Normal 0.9-7.0 [facility] [place] Comment on above: Performed By: #### C DIFPOC #### [facility] [address] [place] [address] Dr. Awilda Bryant Erythrocyte distribution width (RBC) [Ratio] 12.7 % Normal 11.0-15.0 [facility] [place] Comment on above: Performed By: #### C DIFPOC #### [facility] [address] [place] [address] Dr. Awilda Bryant Hematocrit (Bld) [Volume fraction] 41.9 % Normal 36.0-48.0 [facility] [place] Comment on above: Performed By: #### C DIFPOC #### [facility] [address] [place] [address] Dr. Awilda Bryant Hemoglobin (Bld) [Mass/Vol] 14.7 g/dL Normal 12.0-16.0 [facility] Comment on above: Performed By: #### C DIFPOC #### [facility] [address] [place] [address] Dr. Awilda Bryant IG # 0.02 10e3/ul Normal 0.00-0.03 [facility] Comment on above: Performed By: #### C DIFPOC #### [facility] [address] [place] [address] Dr. Awilda Bryant IG % 0.3 % Normal 0.0-0.5 [facility] Comment on above: Performed By: #### C DIFPOC #### [facility] [address] [address] [address] Awilda Bryant LYMPH # 2.1 103/ul Normal 1.2-3.8 [facility] [place] Comment on above: Performed By: #### C DIFPOC #### [facility] [address] [place] [address] Dr. Awilda Bryant Lymphocytes/100 WBC (Bld) 31.4 % Normal 20.5-60.0 [facility] [place] Comment on above: Performed By: #### C DIFPOC #### [facility] [address] [place] [address] Dr. Awilda Bryant MANUAL DIFF REQ NO Normal [facility] Comment on above: Performed By: #### C DIFPOC #### [facility] [address] [place] [address] Dr. Awilda Bryant MCH (RBC) [Entitic mass] 29.7 pg Normal 26.7-34.0 [facility] [place] Comment on above: Performed By: #### C DIFPOC #### [facility] [address] [place] [address] Dr. Awilda Bryant MCHC (RBC) [Mass/Vol] 35.1 g/dL Normal 29.9-35.2 [facility] [place] Comment on above: Performed By: #### C DIFPOC #### [facility] [address] [place] [address] Dr. Awilda Bryant MCV (RBC) [Entitic vol] 84.6 fL Normal 81.0-99.0 [facility] [place] Comment on above: Performed By: #### C DIFPOC #### [facility] [address] [place] [address] Dr. Awilda Bryant MONO # 0.5 103/ul Normal 0.3-0.8 [facility] [place] Comment on above: Performed By: #### C DIFPOC #### [facility] [address] [place] [address] Dr. Awilda Bryant Monocytes/100 WBC (Bld) 7.5 % Normal 1.7-12.0 [facility] [place] Comment on above: Performed By: #### C DIFPOC #### [facility] [address] [address] [address] Awilda Bryant NEUT # 4.0 103/ul Normal 1.4-6.5 [facility] [place] Comment on above: Performed By: #### C DIFPOC #### [facility] [address] [address] [address] Awilda Bryant Neutrophils/100 WBC (Bld) 58.2 % Normal 43.0-75.0 [facility] [place] Comment on above: Performed By: #### C DIFPOC #### [facility] [address] [place] [address] Dr. Awilda Bryant Platelet mean volume (Bld) [Entitic vol] 9.8 fL Normal 9.5-13.5 [facility] [place] Comment on above: Performed By: #### C DIFPOC #### [facility] [address] [place] [address] Dr. Awilda Bryant PLT 344 103/ul Normal 150-450 [facility] [place] Comment on above: Performed By: #### C DIFPOC #### [facility] [address] [place] [address] Dr. Awilda Bryant RBC 4.95 106/ul Normal 4.20-5.40 [facility] [place] Comment on above: Performed By: #### C DIFPOC #### [facility] [address] [place] [address] Dr. Awilda Bryant WBC 6.8 103/ul Normal 4.0-11.0 [facility] [place] Comment on above: Performed By: #### C DIFPOC #### [facility] [address] [place] [address] Dr. Awilda Bryant LIPID PROFILEon 07-18-2022 CHOL-HDL RATIO NORM SEE BELOW Normal [facility] Comment on above: Result Comment: 3.3 - 4.4 LOW RISK 4.4 - 7.1 AVERAGE RISK 7.1 - 11.0 MODERATE RISK >11.0 HIGH RISK Performed By: #### T POAB #### [facility] [address] [place] [address] Dr. Awilda Bryant Cholesterol [Mass/Vol] 159 mg/dL Normal <=200 [facility] [place] Comment on above: Performed By: #### T POAB #### [facility] [address] [address] [address] Awilda Bryant Cholesterol in HDL [Mass/Vol] 40 mg/dL Normal 40-60 [facility] [place] Comment on above: Performed By: #### T POAB #### [facility] [address] [address] [address] Awilda Bryant Cholesterol in LDL [Mass/Vol] 102.2 mg/dL Normal [facility] [place] Comment on above: Performed By: #### T POAB #### [facility] [address] [address] [address] Awilda Bryant Cholesterol.total/C holesterol in HDL [Mass ratio] 4.0 {ratio} Normal [facility] [place] Comment on above: Performed By: #### T POAB #### [facility] [address] [address] [address] Awilda Bryant HDL NORMAL > or = 60 mg/dl - LO W CARDIOVASCULAR RISK <40 mg/dl - HIGH CARDIOVASCULAR RISK Normal [facility] [place] Comment on above: Performed By: #### T POAB #### [facility] [address] [address] [address] Awilda Bryant LDL CALC NORMAL SEE BELOW Normal [facility] Comment on above: Result Comment: <100 mg/dl OPTIMAL 100 - 129 mg/dl NEAR OR ABOVE OPTIMAL 130 - 159 mg/dl BORDERLINE HIGH 160 - 189 mg/dl HIGH >190 mg/dl VERY HIGH Performed By: #### T POAB #### [facility] [address] [address] [address] Awilda Bryant Triglyceride [Mass/Vol] 84 mg/dL Normal <=150 [facility] Comment on above: Performed By: #### T POAB #### [facility] [address] [address] [address] Awilda Bryant VLDL CALC 16.8 mg/dL Normal [facility] [place] Comment on above: Performed By: #### T POAB #### [facility] [address] [address] [address] Awilda Bryant PROF 14(COMP METB)on 023 Albumin [Mass/Vol] 4.0 g/dL Normal 3.4-5.0 [facility] Comment on above: Performed By: #### C MP, TSH, LIPID #### [facility] [address] [address] [address] Awilda Bryant Albumin/Globulin [Mass ratio] 1.0 {ratio} Normal [facility] [place] Comment on above: Performed By: #### C MP, TSH, LIPID #### [facility] [address] [address] [address] Awilda Bryant ALP [Catalytic activity/Vol] 62 U/L Normal 46-116 [facility] [place] Comment on above: Performed By: #### C MP, TSH, LIPID #### [facility] [address] [place] [address] Dr. Awilda Bryant ALT [Catalytic activity/Vol] 21 U/L Normal 14-59 [facility] [place] Comment on above: Performed By: #### C MP, TSH, LIPID #### [facility] [address] [address] [address] Awilda Bryant Anion gap [Moles/Vol] 11.9 mmol/L Normal [facility] [place] Comment on above: Performed By: #### C MP, TSH, LIPID #### [facility] [address] [place] [address] Dr. Awilda Bryant AST [Catalytic activity/Vol] 23 U/L Normal 15-37 [facility] [place] Comment on above: Performed By: #### C MP, TSH, LIPID #### [facility] [address] [address] [address] Awilda Bryant Bilirubin [Mass/Vol] 0.6 mg/dL Normal 0.2-1.0 [facility] [place] Comment on above: Performed By: #### C MP, TSH, LIPID #### [facility] [address] [address] [address] Awilda Bryant Calcium [Mass/Vol] 8.8 mg/dL Normal 8.5-10.1 [facility] Comment on above: Performed By: #### C MP, TSH, LIPID #### [facility] [address] [address] [address] Awilda Bryant Chloride [Moles/Vol] 102 mmol/L Normal 98-107 [facility] [place] Comment on above: Performed By: #### C MP, TSH, LIPID #### [facility] [address] [address] [address] Awilda Bryant CO2 [Moles/Vol] 27.5 mmol/L Normal 21.0-32.0 [facility] Comment on above: Performed By: #### C MP, TSH, LIPID #### [facility] [address] [address] [address] Awilda Bryant Creatinine [Mass/Vol] 0.60 mg/dL Normal 0.55-1.02 [facility] [place] Comment on above: Performed By: #### C MP, TSH, LIPID #### [facility] [address] [address] [address] Awilda Bryant EGFR-AF GRENADIAN >60 Normal >=60 [facility] Comment on above: Performed By: #### C MP, TSH, LIPID #### [facility] [address] [address] [address] Awilda Bryant EGFR-NON AF GRENADIAN >60 Normal >=60 [facility] [place] Comment on above: Performed By: #### C MP, TSH, LIPID #### [facility] [address] [address] [address] Awilda Bryant Globulin (S) [Mass/Vol] 3.9 g/dL Normal [facility] [place] Comment on above: Performed By: #### C MP, TSH, LIPID #### [facility] [address] [address] [address] Awilda Bryant Glucose [Mass/Vol] 96 mg/dL Normal 74-106 [facility] Comment on above: Performed By: #### C MP, TSH, LIPID #### [facility] [address] [address] [address] Awilda Bryant Potassium [Moles/Vol] 3.4 mmol/L Critically low 3.5-5.1 [facility] [place] Comment on above: Performed By: #### C MP, TSH, LIPID #### [facility] [address] [place] [address] Dr. Awilda Bryant Protein [Mass/Vol] 7.9 g/dL Normal 6.4-8.2 [facility] Comment on above: Performed By: #### C MP, TSH, LIPID #### [facility] [address] [place] [address] Dr. Awilda Bryant Sodium [Moles/Vol] 138 mmol/L Normal 136-145 [facility] Comment on above: Performed By: #### C MP, TSH, LIPID #### [facility] [address] [place] [address] Dr. Awilda Bryant Urea nitrogen [Mass/Vol] 15.0 mg/dL Normal 7.0-18.0 [facility] [place] Comment on above: Performed By: #### C MP, TSH, LIPID #### [facility] [address] [place] [address] Dr. Awilda Bryant Urea nitrogen/Creatinine [Mass ratio] 25.0 mg/mg Normal [facility] Comment on above: Performed By: #### C MP, TSH, LIPID #### [facility] [address] [place] [address] Dr. Awilda Bryant TSHon 07-18-2022 TSH 1.349 uIU/mL Normal 0.358-3.740 [facility] Comment on above: Performed By: #### T POAB #### [facility] [address] [place] [address] Dr. Awilda Bryant UA RANDOM W/MICROSCOPICon BACTERIA NONE SEEN Normal NONE SEEN [facility] Comment on above: Performed By: #### U AMIC #### [facility] [address] [place] [address] Dr. Awilda Bryant Bilirubin Ql (U) Negative Normal NEGATIVE [facility] Comment on above: Performed By: #### U AMIC #### [facility] [address] [place] [address] Dr. Awilda Bryant CAST NONE SEEN Normal NONE SEEN [facility] Comment on above: Performed By: #### U AMIC #### [facility] [address] [address] [address] Awilda Bryant Clarity (U) CLEAR Normal CLEAR [facility] Comment on above: Performed By: #### U AMIC #### [facility] [address] [address] [address] Awilda Bryant Color (U) YELLOW Normal YELLOW [facility] Comment on above: Performed By: #### U AMIC #### [facility] [address] [address] [address] Awilda Bryant Crystals LM Nom (Urine sed) NONE SEEN Normal NONE SEEN [facility] [place] Comment on above: Performed By: #### U AMIC #### [facility] [address] [place] [address] Dr. Awilda Bryant Epithelial cells LM Ql (Urine sed) NONE SEEN Normal NONE SEEN /RARE [facility] Comment on above: Performed By: #### U AMIC #### [facility] [address] [place] [address] Dr. Awilda Bryant Glucose Ql (U) Negative Normal NEGATIVE [facility] Comment on above: Performed By: #### U AMIC #### [facility] [address] [address] [address] Awilda Bryant Hemoglobin Ql (U) Negative Normal NEGATIVE [facility] Comment on above: Performed By: #### U AMIC #### [facility] [address] [address] [address] Awilda Bryant Ketones Ql (U) Negative Normal NEGATIVE [facility] Comment on above: Performed By: #### U AMIC #### [facility] [address] [address] [address] Awilda Bryant LEUKOCYTES Negative Normal NEGATIVE [facility] Comment on above: Performed By: #### U AMIC #### [facility] [address] [place] [address] Dr. Awilda Bryant MUCOUS NONE SEEN Normal NONE SEEN [facility] [place] Comment on above: Performed By: #### U AMIC #### [facility] [address] [address] [address] Awilda Bryant Nitrite Ql (U) Negative Normal NEGATIVE [facility] Comment on above: Performed By: #### U AMIC #### [facility] [address] [place] [address] Dr. Awilda Bryant pH (U) 6.0 [pH] Normal 5-9 [facility] Comment on above: Performed By: #### U AMIC #### [facility] [address] [place] [address] Dr. Awilda Bryant RBC 0-2 Normal 0-2 [facility] [place] Comment on above: Performed By: #### U AMIC #### [facility] [address] [place] [address] Dr. Awilda Bryant SPEC GRAVITY 1.025 Normal 1.005-<=1.025 [facility] Comment on above: Performed By: #### U AMIC #### [facility] [address] [place] [address] Dr. Awilda Bryant UA PROTEIN Negative Normal NEGATIVE/ TRACE [facility] Comment on above: Performed By: #### U AMIC #### [facility] [address] [place] [address] Dr. Awilda Bryant Urobilinogen Qn (U) 0.2 {Clarita'U}/dL Normal 0.2 - 1. 0 [facility] [place] Comment on above: Performed By: #### U AMIC #### [facility] [address] [place] [address] Dr. Awilda Bryant WBC NONE SEEN Normal NONE SEEN [facility] Comment on above: Performed By: #### U AMIC #### [facility] [address] [place] [address] Dr. Awilda Bryant VITAMIN D 25 OHon 07-18-2022 VIT D 25-OH 26.4 ng/mL Normal [facility] Comment on above: Performed By: #### C DIFPOC #### [facility] [address] [place] [address] Dr. Awilda Bryant VIT D RANGES SEE BELOW Normal [facility] Comment on above: Result Comment: <20 ng/mL Vit D deficient 20 - <30 ng/mL Vit D insufficient 30 - 100 ng/mL Vit D sufficient >100 ng/mL Potential Toxicity Performed By: #### C DIFPOC #### [facility] [address] [place] [address] Dr. Awilda Bryant DHEA-SULFATEon 06-28-2022 DHEA-Sulfate 79.2 ug/dL Normal 57.3-279.2 [facility] [place] Comment on above: Performed By: #### D HEASUL #### [facility] [address] [place] [address] Dr. Awilda Bryant ESTRADIOLon 06-28-2022 Estradiol 38.9 pg/mL Normal [facility] [place] Comment on above: Result Comment: Adul t Female: Follicular phase 12.5 - 166.0 Ovulation phase 85.8 - 498.0 Luteal phase 43.8 - 211.0 Postmenopausal <6.0 - 54.7 1st trimester 215.0 - >4300.0 Perla ECLIA methodology Performed By: #### E STRADI #### [facility] [address] [place] [address] Dr. Awilda Bryant FSHon 06-28-2022 FSH 8.9 mIU/mL Normal [facility] [place] Comment on above: Result Comment: Adul t Female: Follicular phase 3.5 - 12.5 Ovulation phase 4.7 - 21.5 Luteal phase 1.7 - 7.7 Postmenopausal 25.8 - 134.8 Performed By: #### C DIFPOC #### [facility] [address] [place] [address] Dr. Awilda Bryant PROLACTINon 06-28-2022 Prolactin 9.9 ng/mL Normal 4.8-23.3 [facility] [place] Comment on above: Performed By: #### P ROLAC #### [facility] [address] [place] [address] Dr. Awilda Bryant TESTOSTERONE, TOTALon 2022 Testosterone [Mass/Vol] 18 ng/dL Normal 8-60 [facility] [place] Comment on above: Performed By: #### T POAB #### [facility] [address] [place] [address] Dr. Awilda Bryant THYROGLOBULIN ABon Thyroglobulin Antibody <1.0 Normal 0.0-0.9 [facility] [place] Comment on above: Result Comment: Thyr oglobulin Antibody measured by [employer] Methodology Performed By: #### T HYGAB #### [facility] [address] [place] [address] Dr. Awilda Bryant THYROID PEROXIDASE ABon 03-0 Thyroid Peroxidase (TPO) Ab <9 Normal 0-34 [facility] Comment on above: Performed By: #### T POAB #### [facility] [address] [place] [address] Dr. Awilda Bryant CBC AUTO DIFFon 06-27-2022 BASO # 0.1 103/ul Normal 0.0-0.1 [facility] [place] Comment on above: Performed By: #### T POAB #### [facility] [address] [place] [address] Dr. Awilda Bryant Basophils/100 WBC (Bld) 0.9 % Normal 0.2-2.0 [facility] [place] Comment on above: Performed By: #### T POAB #### [facility] [address] [place] [address] Dr. Awilda Bryant EO # 0.2 103/ul Normal 0.0-0.7 [facility] [place] Comment on above: Performed By: #### T POAB #### [facility] [address] [place] [address] Dr. Awilda Bryant Eosinophils/100 WBC (Bld) 2.7 % Normal 0.9-7.0 [facility] Comment on above: Performed By: #### T POAB #### [facility] [address] [place] [address] Dr. Awilda Bryant Erythrocyte distribution width (RBC) [Ratio] 12.6 % Normal 11.0-15.0 [facility] Comment on above: Performed By: #### T POAB #### [facility] [address] [place] [address] Dr. Awilda Bryant Hematocrit (Bld) [Volume fraction] 42.0 % Normal 36.0-48.0 [facility] Comment on above: Performed By: #### T POAB #### [facility] [address] [address] [address] Awilda Bryant Hemoglobin (Bld) [Mass/Vol] 14.6 g/dL Normal 12.0-16.0 [facility] [place] Comment on above: Performed By: #### T POAB #### [facility] [address] [address] [address] Awilda Bryant IG # 0.02 10e3/ul Normal 0.00-0.03 [facility] [place] Comment on above: Performed By: #### T POAB #### [facility] [address] [address] [address] Awilda Bryant IG % 0.3 % Normal 0.0-0.5 [facility] [place] Comment on above: Performed By: #### T POAB #### [facility] [address] [address] [address] Awilda Bryant LYMPH # 2.1 103/ul Normal 1.2-3.8 [facility] [place] Comment on above: Performed By: #### T POAB #### [facility] [address] [address] [address] Awilda Bryant Lymphocytes/100 WBC (Bld) 31.2 % Normal 20.5-60.0 [facility] [place] Comment on above: Performed By: #### T POAB #### [facility] [address] [address] [address] Awlida Bryant MANUAL DIFF REQ NO Normal [facility] Comment on above: Performed By: #### T POAB #### [facility] [address] [address] [address] Awilda Bryant MCH (RBC) [Entitic mass] 29.1 pg Normal 26.7-34.0 [facility] Comment on above: Performed By: #### T POAB #### [facility] [address] [address] [address] Awilda Bryant MCHC (RBC) [Mass/Vol] 34.8 g/dL Normal 29.9-35.2 [facility] [place] Comment on above: Performed By: #### T POAB #### [facility] [address] [address] [address] Awilda Bryant MCV (RBC) [Entitic vol] 83.8 fL Normal 81.0-99.0 [facility] [place] Comment on above: Performed By: #### T POAB #### [facility] [address] [place] [address] Dr. Awilda Bryant MONO # 0.5 103/ul Normal 0.3-0.8 [facility] [place] Comment on above: Performed By: #### T POAB #### [facility] [address] [place] [address] Dr. Awilda Bryant Monocytes/100 WBC (Bld) 6.8 % Normal 1.7-12.0 [facility] [place] Comment on above: Performed By: #### T POAB #### [facility] [address] [place] [address] Dr. Awilda Bryant NEUT # 3.9 103/ul Normal 1.4-6.5 [facility] [place] Comment on above: Performed By: #### T POAB #### [facility] [address] [place] [address] Dr. Awilda Bryant Neutrophils/100 WBC (Bld) 58.1 % Normal 43.0-75.0 [facility] [place] Comment on above: Performed By: #### T POAB #### [facility] [address] [place] [address] Dr. Awilda Bryant Platelet mean volume (Bld) [Entitic vol] 9.2 fL Critically low 9.5-13.5 [facility] [place] Comment on above: Performed By: #### T POAB #### [facility] [address] [place] [address] Dr. Awilda Bryant PLT 412 103/ul Normal 150-450 [facility] Comment on above: Performed By: #### T POAB #### [facility] [address] [place] [address] Dr. Awilda Bryant RBC 5.01 106/ul Normal 4.20-5.40 [facility] Comment on above: Performed By: #### T POAB #### [facility] [address] [place] [address] Dr. Awilda Bryant WBC 6.7 103/ul Normal 4.0-11.0 [facility] [place] Comment on above: Performed By: #### T POAB #### [facility] [address] [place] [address] Dr. Awilda Bryant FREE T3on 06-27-2022 FREE T3 2.68 pg/mlL Normal 2.18-3.98 [facility] [place] Comment on above: Performed By: #### T POAB #### [facility] [address] [place] [address] Dr. Awilda Bryant FREE T4on 06-27-2022 Free T4 [Mass/Vol] 1.24 ng/dL Normal 0.76-1.46 [facility] Comment on above: Performed By: #### C DIFPOC #### [facility] [address] [place] [address] Dr. Awilda Bryant LIPID PROFILEon 06-27-2022 CHOL-HDL RATIO NORM SEE BELOW Normal [facility] Comment on above: Result Comment: 3.3 - 4.4 LOW RISK 4.4 - 7.1 AVERAGE RISK 7.1 - 11.0 MODERATE RISK >11.0 HIGH RISK Performed By: #### T POAB #### [facility] [address] [place] [address] Dr. Awilad Bryant Cholesterol [Mass/Vol] 179 mg/dL Normal <=200 [facility] [place] Comment on above: Performed By: #### T POAB #### [facility] [address] [place] [address] Dr. Awilda Bryant Cholesterol in HDL [Mass/Vol] 44 mg/dL Normal 40-60 [facility] [place] Comment on above: Performed By: #### T POAB #### [facility] [address] [place] [address] Dr. Awilda Bryant Cholesterol in LDL [Mass/Vol] 111.8 mg/dL Normal [facility] [place] Comment on above: Performed By: #### T POAB #### [facility] [address] [place] [address] Dr. Awilda Bryant Cholesterol.total/C holesterol in HDL [Mass ratio] 4.1 {ratio} Normal [facility] [place] Comment on above: Performed By: #### T POAB #### [facility] [address] [address] [address] Awilda Bryant HDL NORMAL > or = 60 mg/dl - LO W CARDIOVASCULAR RISK <40 mg/dl - HIGH CARDIOVASCULAR RISK Normal [facility] [place] Comment on above: Performed By: #### T POAB #### [facility] [address] [address] [address] Awilda Bryant LDL CALC NORMAL SEE BELOW Normal [facility] Comment on above: Result Comment: <100 mg/dl OPTIMAL 100 - 129 mg/dl NEAR OR ABOVE OPTIMAL 130 - 159 mg/dl BORDERLINE HIGH 160 - 189 mg/dl HIGH >190 mg/dl VERY HIGH Performed By: #### T POAB #### [facility] [address] [address] [address] Awilda Bryant Triglyceride [Mass/Vol] 116 mg/dL Normal <=150 [facility] [place] Comment on above: Performed By: #### T POAB #### [facility] [address] [address] [address] Awilda Bryant VLDL CALC 23.2 mg/dL Normal [facility] [place] Comment on above: Performed By: #### T POAB #### [facility] [address] [place] [address] Dr. Awilda Bryant PROF 14(COMP METB)on 023 Albumin [Mass/Vol] 3.9 g/dL Normal 3.4-5.0 [facility] Comment on above: Performed By: #### T POAB #### [facility] [address] [address] [address] Awilda Bryant Albumin/Globulin [Mass ratio] 1.1 {ratio} Normal [facility] [place] Comment on above: Performed By: #### T POAB #### [facility] [address] [address] [address] Awilda Bryant ALP [Catalytic activity/Vol] 70 U/L Normal 46-116 [facility] [place] Comment on above: Performed By: #### T POAB #### [facility] [address] [address] [address] Awilda Bryant ALT [Catalytic activity/Vol] 22 U/L Normal 14-59 [facility] [place] Comment on above: Performed By: #### T POAB #### [facility] [address] [address] [address] Awilda Bryant Anion gap [Moles/Vol] 11.5 mmol/L Normal [facility] [place] Comment on above: Performed By: #### T POAB #### [facility] [address] [address] [address] Awilda Bryant AST [Catalytic activity/Vol] 16 U/L Normal 15-37 [facility] [place] Comment on above: Performed By: #### T POAB #### [facility] [address] [place] [address] Dr. Awilda Bryant Bilirubin [Mass/Vol] 0.5 mg/dL Normal 0.2-1.0 [facility] [place] Comment on above: Performed By: #### T POAB #### [facility] [address] [address] [address] Awilda Bryant Calcium [Mass/Vol] 9.3 mg/dL Normal 8.5-10.1 [facility] Comment on above: Performed By: #### T POAB #### [facility] [address] [place] [address] Dr. Awilda Bryant Chloride [Moles/Vol] 104 mmol/L Normal 98-107 [facility] [place] Comment on above: Performed By: #### T POAB #### [facility] [address] [address] [address] Awilda Bryant CO2 [Moles/Vol] 28.3 mmol/L Normal 21.0-32.0 [facility] Comment on above: Performed By: #### T POAB #### [facility] [address] [address] [address] Awilda Bryant Creatinine [Mass/Vol] 0.52 mg/dL Critically low 0.55-1.02 [facility] Comment on above: Performed By: #### T POAB #### [facility] [address] [address] [address] Awilda Bryant EGFR-AF GRENADIAN >60 Normal >=60 [facility] Comment on above: Performed By: #### T POAB #### [facility] [address] [address] [address] Awilda Bryant EGFR-NON AF GRENADIAN >60 Normal >=60 [facility] Comment on above: Performed By: #### T POAB #### [facility] [address] [address] [address] Awilda Bryant Globulin (S) [Mass/Vol] 3.6 g/dL Normal [facility] [place] Comment on above: Performed By: #### T POAB #### [facility] [address] [address] [address] Awilda Bryant Glucose [Mass/Vol] 105 mg/dL Normal 74-106 [facility] Comment on above: Performed By: #### T POAB #### [facility] [address] [address] [address] Awilda Bryant Potassium [Moles/Vol] 3.8 mmol/L Normal 3.5-5.1 [facility] Comment on above: Performed By: #### T POAB #### [facility] [address] [address] [address] Awilda Bryant Protein [Mass/Vol] 7.5 g/dL Normal 6.4-8.2 [facility] Comment on above: Performed By: #### T POAB #### [facility] [address] [address] [address] Awilad Bryant Sodium [Moles/Vol] 140 mmol/L Normal 136-145 [facility] Comment on above: Performed By: #### T POAB #### [facility] [address] [address] [address] Awilda Bryant Urea nitrogen [Mass/Vol] 16.0 mg/dL Normal 7.0-18.0 [facility] [place] Comment on above: Performed By: #### T POAB #### [facility] [address] [place] [address] Dr. Awilda Bryant Urea nitrogen/Creatinine [Mass ratio] 30.8 mg/mg Normal [facility] Comment on above: Performed By: #### T POAB #### [facility] [address] [place] [address] Dr. Awilda Bryant TSHon 06-27-2022 TSH 1.228 uIU/mL Normal 0.358-3.740 [facility] Comment on above: Performed By: #### T POAB #### [facility] [address] [place] [address] Dr. Awilda Bryant VITAMIN B12on 06-27-2022 Cobalamin (Vitamin B12) [Mass/Vol] 323.0 pg/mL Normal 193.0-986.0 [facility] Comment on above: Performed By: #### C DIFPOC #### [facility] [address] [place] [address] Dr. Awilda Bryant VITAMIN D 25 OHon 06-27-2022 VIT D 25-OH 26.9 ng/mL Normal [facility] Comment on above: Performed By: #### T POAB #### [facility] [address] [place] [address] Dr. Awilda Bryant VIT D RANGES SEE BELOW [facility] Comment on above: Result Comment: <20 ng/mL Vit D deficient 20 - <30 ng/mL Vit D insufficient 30 - 100 ng/mL Vit D sufficient >100 ng/mL Potential Toxicity Performed By: #### T POAB #### [facility] [address] [place] [address] Dr. Awilda Bryant PAP ACOG PANEL 2: 30 to 65on 11-13-2021 . . Normal [facility] Comment on above: Result Comment: Perf ormed at: WB Performed By: #### [id number] #### [facility] [address] [place] [address] Dr. Awilda Bryant Age Gdln ACOG Testing 30-65 Normal [facility] Comment on above: Performed By: #### [id number] #### [facility] [address] [place] [address] Dr. Awilda Bryant DIAGNOSIS: Comment Normal [facility] Comment on above: Result Comment: NEGA TIVE FOR INTRAEPITHELIAL LESION OR MALIGNANCY. Performed at: WB Performed By: #### [id number] #### [facility] [address] [place] [address] Dr. Awilda Bryant HPV Aptima Negative Normal Negative [facility] Comment on above: Result Comment: This nucleic acid amplification test detects fourteen high-risk HPV types (16,18,31,33,35,39,45,51,52,56,58,59,66,68) without differentiation. Performed at: =G Performed By: #### [id number] #### [facility] [address] [place] [address] Dr. Awilda Bryant Methodology: Comment Normal [facility] Comment on above: Result Comment: This liquid based ThinPrep(R) pap test was screened with the use of an image guided system. Performed at: WB Performed By: #### [id number] #### [facility] [address] [place] [address] Dr. Awilda Bryant Note: Comment Normal [facility] Comment on above: Result Comment: The Pap smear is a screening test designed to aid in the detection of premalignant and malignant conditions of the uterine cervix. It is not a diagnostic procedure and should not be used as the sole means of detecting cervical cancer. Both false-positive and false-negative reports do occur. . Performed at: WB Performed By: #### [id number] #### [facility] [address] [place] [address] Dr. Awilda Bryant Performed by: Comment Normal [facility] Comment on above: Result Comment: Isi Shook, Core Sucker (ASCP) Performed at: WB Performed By: #### [id number] #### [facility] [address] [place] [address] Dr. Awilda Bryant Specimen adequacy: Comment Normal [facility] Comment on above: Result Comment: Sati sfactory for evaluation. Endocervical and/or squamous metaplastic cells (endocervical component) are present. Performed at: WB Performed By: #### [id number] #### [facility] [address] [address] [address] Awilda Bryant Encounters Encounter Date Encounter [...] Facility:[facility] Payers Date Payer Category Payer Unknown [id number] 2.16.84 [id number] 1984 Unknown [id number] 2.16.84 [id number] 1984 Unknown [id number] 2.16.84 [id number] 1984 Unknown [id number] 2.16.84 [id number] 1984 Unknown [id number] 2.16.84 [id number] 1984 Unknown [id number] .16.84 [id number] 1984 Unknown [id number] 2.16.84 [id number] 1959 Unknown [id number] Summary Purpose Family History No Family History Records FoundNo Family History Records Found Advance Directives No Advanced Directives Records FoundNo Advanced Directives Records Found Additional Source Comments INFORMATION SOURCE (unrecogn ized section and content) DATE CREATED AUTHOR 10/04/2022 [facility] DATE CREATED AUTHOR AUTHOR'S ELA GUALLPASHIVA 10/09/2023 [facility] FOR RECORDS PERTAINING TO PATIENTS WHO ARE [...] BE BASED ON THE PRIMARY CLINICAL RECORDS. [facility]. provides no warranty or guarantee of the accuracy or completeness of information in this document.
[2023-12-05 11:33] LABS: Alanine Aminotransferase 18 U/L (14-59); Albumin Globulin Ratio 0.9; Albumin Level 3.3 g/dL (3.4-5.0); Alkaline Phosphatase 61 U/L (46-116); Anion Gap 12.4; Aspartate Amino Transferase 12 U/L (15-37); BUN Creatinine Ratio 17.7; Bilirubin Total 0.5 mg/dL (0.2-1.0); Calcium 8.6 mg/dL (8.5-10.1); Carbon Dioxide 26.2 mmol/L (21.0-32.0); Chloride 104 mmol/L (98-107); Chol HDL Ratio 3.6; Cholesterol 154 mg/dL (<=200); Estimated GFR (African America >60 (>=60); Estimated GFR (Non-African Ame >60 (>=60); Globulin 3.5 g/dL; Glucose 82 mg/dL (74-106); HDL Cholesterol 43 mg/dL (40-60); LDL Cholesterol Calculated 94.8 mg/dL; Potassium 3.6 mmol/L (3.5-5.1); Sodium 139 mmol/L (136-145); Total Protein 6.8 g/dL (6.4-8.2); Triglycerides 81 mg/dL (<=150); VLDL CHOLESTEROL 16.2 mg/dL
== END 2023-12-05 08:01 | disposition home or self-care (01) ==
PROVIDERS: PCP Obstetrics & Gynecology; Visit Provider Nurse Practitioner
DX: E66.01 Morbid (severe) obesity due to excess calories (principal); I10 Essential (primary) hypertension
CPT/HCPCS: 36415; 80053; 80061; 82306

== ENCOUNTER 2024-03-07 11:20 | Emergency (ER) | payer MEDICAID, SELFPAY ==
[2024-03-07 11:27] VITALS: BP 137/97; PULSE 92; TEMP 36.4; O2SAT 99; BMI 34.8
--- OUTSIDE RECORDS SUMMARY | 2024-03-07 11:28 | XMS_ITS | CCD ---
Author Organization [facility] Care Team Providers Care Anesthesiologist And Critical Care Name Role Phone BIANKAC, DR STOCKTON Attending Unavailable MISC, DR STOCKTON Consulting Unavailable MISC, DR STOCKTON Admitting Unavailable AICHHOLZ, CHIEF ENGINEER'S HELPER HAYLEY Primary Care Unavailable KARASIK ., DR OLIVER Consulting Unavailabl e KARASIK ., DR OLIVER Admitting Unavailabl e AICHHOLZ, CHIEF ENGINEER'S HELPER HAYLEY Primary Care Unavailable KARASIK ., DR OLIVER Attending Unavailabl e AICHHOLZ, CHIEF ENGINEER'S HELPER HAYLEY Admitting Unavailable AICHHOLZ, CHIEF ENGINEER'S HELPER HAYLEY Attending Unavailable AICHHOLZ, CHIEF ENGINEER'S HELPER HAYLEY Primary Care Unavailable KARASIK ., DR OLIVER Admitting Unavailabl e AICHHOLZ, CHIEF ENGINEER'S HELPER HAYLEY Primary Care Unavailable KARASIK ., DR OLIVER Attending Unavailabl e AICHHOLZ, CHIEF ENGINEER'S HELPER HAYLEY Admitting Unavailable AICHHOLZ, CHIEF ENGINEER'S HELPER HAYLEY Attending Unavailable AICHHOLZ, CHIEF ENGINEER'S HELPER HAYLEY Consulting Unavailable AICHHOLZ, CHIEF ENGINEER'S HELPER HAYLEY Primary Care Unavailable AICHHOLZ, CHIEF ENGINEER'S HELPER HAYLEY Admitting Unavailable AICHHOLZ, CHIEF ENGINEER'S HELPER HAYLEY Attending Unavailable AICHHOLZ, CHIEF ENGINEER'S HELPER HAYLEY Consulting Unavailable AICHHOLZ, CHIEF ENGINEER'S HELPER HAYLEY Primary Care Unavailable BRE MAS Attending Unavailable AICHHOLZ, HAYLEY Attending Unavailable AICHHOLZ, HAYLEY Attending Unavailable Aichholz CERTIFIED EMERGENCY VEHICLE TECHNICIAN, Hayley Unavailable Dae Amato MD Primary Care Provider Aichholz CERTIFIED EMERGENCY VEHICLE TECHNICIAN, Hayley Unavailable Allergies Allergy Classification Reported Allergen(s) Allergy Type Date of Onset Reaction(s) Facility (1 source) Amoxicillin Drug Allergy 04-19-2015 [facility] Repository (1 source) Penicillin G Drug Allergy 10-02-2023 [facility] Healthcare Work Phone: Medications Current Medications Medication Drug Class(es) Dates Sig (Normalized) Sig (Original) busPIRone hydrochloride 5 mg oral tablet (1 source) Start: 10-16-2023 take 1 tablet by mouth in the morning busPIRone (Buspar) 5 MG tablet Indications: Generalized anxiety disorder (CMS/HCC) Take 1 tablet (5 mg) by mouth in the morning and 1 tablet (5 mg) before bedtime. 60 tablet 1 10/16/2023 Active losartan potassium 50 mg oral tablet (2 sources) Angiotensin 2 Receptor Dilma Start: 12-17-2023 End: 05-09-2024 take 1 tablet by mouth once daily losartan (Cozaar) 50 MG tablet Indications: Essential (primary) hypertension (CMS/HCC) Take 1 tablet (50 mg) by mouth Daily 90 tablet 02/09/2024 05/09/2024 Active Problems Active Problems Problem Classification Problem Date Documented Da te Episodic/Chronic Anxiety disorders (1 source) Generalized anxiety disorder; Translations: [Generalized anxiety disorder] Onset: 06-19-2023 06-19-2023 Chronic Essential hypertension (6 sources) Essential (primary) hypertension; Translations: [Essential hypertension] Onset: 07-18-2022 Chronic Headache; including migraine (1 source) Migraine; Translations: [Migraine, unspecified, not intractable, without status migrainosus] Onset: 11-04-2023 11-04-2023 Chronic Menstrual disorders (1 source) Excessive and frequent menstruation with irregular cycle; Translations: [EXCESS AND FREQ MEN W/IRREG CYCLE] Onset: 07-01-2022 Chronic Nutritional deficiencies (1 source) Vitamin D deficiency, unspecified; Translations: [VITAMIN D DEFICIENCY UNSPECIFIED] Onset: 2022 Chronic Other endocrine disorders (1 source) Hyperinsulinism; Translations: [Other hypoglycemia] Onset: 11-04-2023 11-04-2023 Chronic Other gastrointestinal disorders (4 sources) Other fecal abnormalities; Translations: [OTHER FECAL ABNORMALITIES] Onset: 09-10-2022 Episodic Other gastrointestinal disorders (4 sources) Diarrhea, unspecified; Translations: [DIARRHEA UNSPECIFIED] Onset: 09-06-2022 Episodic Other nutritional; endocrine; and metabolic disorders (1 source) Obesity, unspecified; Translations: [OBESITY UNSPECIFIED] Onset: 2022 Chronic Other nutritional; endocrine; and metabolic disorders (1 source) Morbid obesity; Translations: [Morbid (severe) obesity due to excess calories] Onset: 11-04-2023 11-04-2023 Chronic Other and delivery including normal (4 sources) Encounter for care and examination of lactating mother; Translations: [ENC CARE AND EXAM LACTATING MOTHER] Onset: 09-24-2022 Episodic Residual codes; unclassified (1 source) Obstructive sleep apnea syndrome; Translations: [Obstructive sleep apnea (adult) (pediatric)] Onset: 11-04-2023 11-04-2023 Chronic Spondylosis; intervertebral disc disorders; other back problems (1 source) Lumbago; Translations: [Pain in left lumbar region of back] Onset: 12-17-2023 12-17-2023 Episodic Past or Other Problems Problem Classification Problem Date Documented Date Episodic/Chronic Immunizations and screening for infectious disease (1 source) Encounter for screening for human papillomavirus (HPV); Translations: [ENC SCREENING HUMAN PAPILLOMAVIRUS] Onset: 11-12-2021 Episodic Other endocrine disorders (4 sources) Endocrine disorder, unspecified; Translations: [ENDOCRINE DISORDER UNSPECIFIED] Onset: 06-27-2022 Episodic Other infections; including parasitic (1 source) Personal history of other infectious and parasitic diseases; Translations: [History of COVID-19] Onset: 11-04-2023 11-04-2023 Episodic Other nutritional; endocrine; and metabolic disorders [...] Ova + Parasite Exam Final report Normal [facility] Comment on above: Result Comment: Thes e results were obtained using wet preparation(s) and trichrome stained smear. This test does not include testing for Cryptosporidium parvum, Cyclospora, or Microsporidia. Performed By: #### O VAPE #### [facility] [address] [place] [address] Dr. Awilda Bryant Result 1 Comment Normal [facility] Comment on above: Result Comment: No o va, cysts, or parasites seen. . One negative specimen does not rule out the possibility of a parasitic infection. Performed By: #### O VAPE #### [facility] [address] [place] [address] Dr. Awilda Bryant STOOL CULTUREon 09-10-2022 Campylobacter Culture Final report Normal [facility] Comment on above: Performed By: #### T POAB #### [facility] [address] [place] [address] Dr. Awilda Bryant E coli Shiga Toxin EIA Negative Normal Negative [facility] Comment on above: Performed By: #### T POAB #### [facility] [address] [place] [address] Dr. Awilda Bryant Result 1 Comment Normal [facility] Comment on above: Result Comment: No S almonella or Shigella recovered. Performed By: #### T POAB #### [facility] [address] [place] [address] Dr. Awilda Bryant Result Comment: No C ampylobacter species isolated. Salmonella/Shigella Screen Final report Normal [facility] Comment on above: Performed By: #### T POAB #### [facility] [address] [place] [address] Dr. Awilda Bryant C. DIFF PCRon 09-06-2022 C. DIFFICILE PCR Negative Normal NEGATIVE [facility] Comment on above: Performed By: #### C DIFPOC #### [facility] [address] [place] [address] Dr. Awilda Bryant OCC BLD IMMUNO SCREENon 08-26 OCCULT BLOOD Positive Abnormal NEGATIVE [facility] Comment on above: Performed By: #### C DIFPOC #### [facility] [address] [place] [address] Dr. Awilda Bryant CBC AUTO DIFFon 07-18-2022 BASO # 0.1 103/ul Normal 0.0-0.1 [facility] Comment on above: Performed By: #### C DIFPOC #### [facility] [address] [place] [address] Dr. Awilda Bryant Basophils/100 WBC (Bld) 0.7 % Normal 0.2-2.0 [facility] Comment on above: Performed By: #### C DIFPOC #### [facility] [address] [place] [address] Dr. Awilda Bryant EO # 0.1 103/ul Normal 0.0-0.7 [facility] Comment on above: Performed By: #### C DIFPOC #### [facility] [address] [place] [address] Dr. Awilda Bryant Eosinophils/100 WBC (Bld) 1.9 % Normal 0.9-7.0 [facility] Comment on above: Performed By: #### C DIFPOC #### [facility] [address] [place] [address] Dr. Awilda Bryant Erythrocyte distribution width (RBC) [Ratio] 12.7 % Normal 11.0-15.0 [facility] Comment on above: Performed By: #### C DIFPOC #### [facility] [address] [place] [address] Dr. Awilda Bryant Hematocrit (Bld) [Volume fraction] 41.9 % Normal 36.0-48.0 [facility] Comment on above: Performed By: #### C DIFPOC #### [facility] [address] [place] [address] Dr. Awilda Bryant Hemoglobin (Bld) [Mass/Vol] 14.7 g/dL Normal 12.0-16.0 [facility] Comment on above: Performed By: #### C DIFPOC #### [facility] [address] [place] [address] Dr. Awilda Bryant IG # 0.02 10e3/ul Normal 0.00-0.03 [facility] Comment on above: Performed By: #### C DIFPOC #### [facility] [address] [place] [address] Dr. Awilda Bryant IG % 0.3 % Normal 0.0-0.5 [facility] Comment on above: Performed By: #### C DIFPOC #### [facility] [address] [place] [address] Dr. Awilda Bryant LYMPH # 2.1 103/ul Normal 1.2-3.8 [facility] Comment on above: Performed By: #### C DIFPOC #### [facility] [address] [place] [address] Dr. Awilda Bryant Lymphocytes/100 WBC (Bld) 31.4 % Normal 20.5-60.0 [facility] Comment on above: Performed By: #### C DIFPOC #### [facility] [address] [place] [address] Dr. Awilda Bryant MANUAL DIFF REQ NO Normal [facility] Comment on above: Performed By: #### C DIFPOC #### [facility] [address] [place] [address] Dr. Awilda Bryant MCH (RBC) [Entitic mass] 29.7 pg Normal 26.7-34.0 [facility] Comment on above: Performed By: #### C DIFPOC #### [facility] [address] [place] [address] Dr. Awilda Bryant MCHC (RBC) [Mass/Vol] 35.1 g/dL Normal 29.9-35.2 [facility] Comment on above: Performed By: #### C DIFPOC #### [facility] [address] [place] [address] Dr. Awilda Bryant MCV (RBC) [Entitic vol] 84.6 fL Normal 81.0-99.0 [facility] Comment on above: Performed By: #### C DIFPOC #### [facility] [address] [place] [address] Dr. Awilda Bryant MONO # 0.5 103/ul Normal 0.3-0.8 [facility] Comment on above: Performed By: #### C DIFPOC #### [facility] [address] [address] [address] Awilda Bryant Monocytes/100 WBC (Bld) 7.5 % Normal 1.7-12.0 [facility] Comment on above: Performed By: #### C DIFPOC #### [facility] [address] [address] [address] Awilda Bryant NEUT # 4.0 103/ul Normal 1.4-6.5 [facility] Comment on above: Performed By: #### C DIFPOC #### [facility] [address] [address] [address] Awilda Bryant Neutrophils/100 WBC (Bld) 58.2 % Normal 43.0-75.0 [facility] Comment on above: Performed By: #### C DIFPOC #### [facility] [address] [place] [address] Dr. Awilda Braynt Platelet mean volume (Bld) [Entitic vol] 9.8 fL Normal 9.5-13.5 [facility] Comment on above: Performed By: #### C DIFPOC #### [facility] [address] [place] [address] Dr. Awilda Bryant PLT 344 103/ul Normal 150-450 [facility] Comment on above: Performed By: #### C DIFPOC #### [facility] [address] [address] [address] Awilda Bryant RBC 4.95 106/ul Normal 4.20-5.40 [facility] Comment on above: Performed By: #### C DIFPOC #### [facility] [address] [place] [address] Dr. Awilda Bryant WBC 6.8 103/ul Normal 4.0-11.0 [facility] Comment on above: Performed By: #### C DIFPOC #### [facility] [address] [place] [address] Dr. Awilda Bryant LIPID PROFILEon 07-18-2022 CHOL-HDL RATIO NORM SEE BELOW Normal [facility] Comment on above: Result Comment: 3.3 - 4.4 LOW RISK 4.4 - 7.1 AVERAGE RISK 7.1 - 11.0 MODERATE RISK >11.0 HIGH RISK Performed By: #### T POAB #### [facility] [address] [address] [address] Awilda Bryant Cholesterol [Mass/Vol] 159 mg/dL Normal <=200 [facility] Comment on above: Performed By: #### T POAB #### [facility] [address] [address] [address] Awilda Bryant Cholesterol in HDL [Mass/Vol] 40 mg/dL Normal 40-60 [facility] Comment on above: Performed By: #### T POAB #### [facility] [address] [place] [address] Dr. Awilda Bryant Cholesterol in LDL [Mass/Vol] 102.2 mg/dL Normal [facility] Comment on above: Performed By: #### T POAB #### [facility] [address] [address] [address] Awilda Bryant Cholesterol.total/C holesterol in HDL [Mass ratio] 4.0 {ratio} Normal [facility] Comment on above: Performed By: #### T POAB #### [facility] [address] [place] [address] Dr. Awilda Bryant HDL NORMAL > or = 60 mg/dl - LO W CARDIOVASCULAR RISK <40 mg/dl - HIGH CARDIOVASCULAR RISK Normal [facility] Comment on above: Performed By: #### T POAB #### [facility] [address] [address] [address] Awilda Bryant LDL CALC NORMAL SEE BELOW Normal [facility] Comment on above: Result Comment: <100 mg/dl OPTIMAL 100 - 129 mg/dl NEAR OR ABOVE OPTIMAL 130 - 159 mg/dl BORDERLINE HIGH 160 - 189 mg/dl HIGH >190 mg/dl VERY HIGH Performed By: #### T POAB #### [facility] [address] [place] [address] Dr. Awilda Bryant Triglyceride [Mass/Vol] 84 mg/dL Normal <=150 [facility] Comment on above: Performed By: #### T POAB #### [facility] [address] [address] [address] Awilda Bryant VLDL CALC 16.8 mg/dL Normal [facility] Comment on above: Performed By: #### T POAB #### [facility] [address] [address] [address] Awilda Bryant PROF 14(COMP METB)on 023 Albumin [Mass/Vol] 4.0 g/dL Normal 3.4-5.0 [facility] Comment on above: Performed By: #### C MP, TSH, LIPID #### [facility] [address] [address] [address] Awilda Bryant Albumin/Globulin [Mass ratio] 1.0 {ratio} Normal [facility] Comment on above: Performed By: #### C MP, TSH, LIPID #### [facility] [address] [place] [address] Dr. Awilda Bryant ALP [Catalytic activity/Vol] 62 U/L Normal 46-116 [facility] Comment on above: Performed By: #### C MP, TSH, LIPID #### [facility] [address] [place] [address] Dr. Awilda Bryant ALT [Catalytic activity/Vol] 21 U/L Normal 14-59 [facility] Comment on above: Performed By: #### C MP, TSH, LIPID #### [facility] [address] [address] [address] Awilda Bryant Anion gap [Moles/Vol] 11.9 mmol/L Normal [facility] Comment on above: Performed By: #### C MP, TSH, LIPID #### [facility] [address] [place] [address] Dr. Awilda Bryant AST [Catalytic activity/Vol] 23 U/L Normal 15-37 [facility] Comment on above: Performed By: #### C MP, TSH, LIPID #### [facility] [address] [place] [address] Dr. Awilda Bryant Bilirubin [Mass/Vol] 0.6 mg/dL Normal 0.2-1.0 [facility] Comment on above: Performed By: #### C MP, TSH, LIPID #### [facility] [address] [address] [address] Awilda Bryant Calcium [Mass/Vol] 8.8 mg/dL Normal 8.5-10.1 [facility] Comment on above: Performed By: #### C MP, TSH, LIPID #### [facility] [address] [address] [address] Awilda Bryant Chloride [Moles/Vol] 102 mmol/L Normal 98-107 [facility] Comment on above: Performed By: #### C MP, TSH, LIPID #### [facility] [address] [address] [address] Awilda Bryant CO2 [Moles/Vol] 27.5 mmol/L Normal 21.0-32.0 [facility] Comment on above: Performed By: #### C MP, TSH, LIPID #### [facility] [address] [address] [address] Awilda Bryant Creatinine [Mass/Vol] 0.60 mg/dL Normal 0.55-1.02 [facility] Comment on above: Performed By: #### C MP, TSH, LIPID #### [facility] [address] [place] [address] Dr. Awilda rByant EGFR-AF OMANI >60 Normal >=60 [facility] Comment on above: Performed By: #### C MP, TSH, LIPID #### [facility] [address] [address] [address] Awilda Bryant EGFR-NON AF OMANI >60 Normal >=60 [facility] Comment on above: Performed By: #### C MP, TSH, LIPID #### [facility] [address] [address] [address] Awilda Bryant Globulin (S) [Mass/Vol] 3.9 g/dL Normal [facility] Comment on above: Performed By: #### C MP, TSH, LIPID #### [facility] [address] [address] [address] Awilda Bryant Glucose [Mass/Vol] 96 mg/dL Normal 74-106 [facility] Comment on above: Performed By: #### C MP, TSH, LIPID #### [facility] [address] [place] [address] Dr. Awilda Bryant Potassium [Moles/Vol] 3.4 mmol/L Critically low 3.5-5.1 [facility] Comment on above: Performed By: #### C MP, TSH, LIPID #### [facility] [address] [place] [address] Dr. Awilda Bryant Protein [Mass/Vol] 7.9 g/dL Normal 6.4-8.2 [facility] Comment on above: Performed By: #### C MP, TSH, LIPID #### [facility] [address] [place] [address] Dr. Awilda Bryant Sodium [Moles/Vol] 138 mmol/L Normal 136-145 [facility] Comment on above: Performed By: #### C MP, TSH, LIPID #### [facility] [address] [place] [address] Dr. Awilda Bryant Urea nitrogen [Mass/Vol] 15.0 mg/dL Normal 7.0-18.0 [facility] Comment on above: Performed By: #### C MP, TSH, LIPID #### [facility] [address] [place] [address] Dr. Awilda Bryant Urea nitrogen/Creatinine [Mass ratio] 25.0 mg/mg Normal [facility] Comment on above: Performed By: #### C MP, TSH, LIPID #### [facility] [address] [place] [address] Dr. Awilda Bryant TSHon 07-18-2022 TSH 1.349 uIU/mL Normal 0.358-3.740 [facility] Comment on above: Performed By: #### T POAB #### [facility] [address] [place] [address] Dr. Awilda Bryant UA RANDOM W/MICROSCOPICon BACTERIA NONE SEEN Normal NONE SEEN [facility] Comment on above: Performed By: #### U AMIC #### [facility] [address] [place] [address] Dr. Awilda Bryant Bilirubin Ql (U) Negative Normal NEGATIVE [facility] Comment on above: Performed By: #### U AMIC #### [facility] [address] [place] [address] Dr. Awilda Bryant CAST NONE SEEN Normal NONE SEEN [facility] Comment on above: Performed By: #### U AMIC #### [facility] [address] [address] [address] Awilda Bryant Clarity (U) CLEAR Normal CLEAR [facility] Comment on above: Performed By: #### U AMIC #### [facility] [address] [place] [address] Dr. Awilda Bryant Color (U) YELLOW Normal YELLOW [facility] Comment on above: Performed By: #### U AMIC #### [facility] [address] [place] [address] Dr. Awilda Bryant Crystals LM Nom (Urine sed) NONE SEEN Normal NONE SEEN [facility] Comment on above: Performed By: #### U AMIC #### [facility] [address] [place] [address] Dr. Awilda Bryant Epithelial cells LM Ql (Urine sed) NONE SEEN Normal NONE SEEN /RARE [facility] Comment on above: Performed By: #### U AMIC #### [facility] [address] [place] [address] Dr. Awilda Bryant Glucose Ql (U) Negative Normal NEGATIVE [facility] Comment on above: Performed By: #### U AMIC #### [facility] [address] [address] [address] Awilda Bryant Hemoglobin Ql (U) Negative Normal NEGATIVE [facility] Comment on above: Performed By: #### U AMIC #### [facility] [address] [address] [address] Awilda Bryant Ketones Ql (U) Negative Normal NEGATIVE [facility] Comment on above: Performed By: #### U AMIC #### [facility] [address] [place] [address] Dr. Awilda Bryant LEUKOCYTES Negative Normal NEGATIVE [facility] Comment on above: Performed By: #### U AMIC #### [facility] [address] [place] [address] Dr. Awilda Bryant MUCOUS NONE SEEN Normal NONE SEEN [facility] Comment on above: Performed By: #### U AMIC #### [facility] [address] [place] [address] Dr. Awilda Bryant Nitrite Ql (U) Negative Normal NEGATIVE [facility] Comment on above: Performed By: #### U AMIC #### [facility] [address] [place] [address] Dr. Awilda Bryant pH (U) 6.0 [pH] Normal 5-9 [facility] Comment on above: Performed By: #### U AMIC #### [facility] [address] [place] [address] Dr. Awilda Bryant RBC 0-2 Normal 0-2 [facility] Comment on above: Performed By: #### U AMIC #### [facility] [address] [place] [address] Dr. Awilda Bryant SPEC GRAVITY 1.025 Normal 1.005-<=1.025 [facility] Comment on above: Performed By: #### U AMIC #### [facility] [address] [place] [address] Dr. Awilda Bryant UA PROTEIN Negative Normal NEGATIVE/ TRACE [facility] Comment on above: Performed By: #### U AMIC #### [facility] [address] [place] [address] Dr. Awilda Bryant Urobilinogen Qn (U) 0.2 {Clarita'U}/dL Normal 0.2 - 1. 0 [facility] Comment on above: Performed By: #### U AMIC #### [facility] [address] [place] [address] Dr. Awilda Bryant WBC NONE SEEN Normal NONE SEEN The [facility] Comment on above: Performed By: #### U AMIC #### [facility] [address] [place] [address] Dr. Awilda Bryant VITAMIN D 25 OHon 07-18-2022 VIT D 25-OH 26.4 ng/mL Normal [facility] Comment on above: Performed By: #### C DIFPOC #### [facility] [address] [place] [address] Dr. Awilda Bryant VIT D RANGES SEE BELOW Normal [facility] Comment on above: Result Comment: <20 ng/mL Vit D deficient 20 - <30 ng/mL Vit D insufficient 30 - 100 ng/mL Vit D sufficient >100 ng/mL Potential Toxicity Performed By: #### C DIFPOC #### [facility] [address] [place] [address] Dr. Awilda Bryant DHEA-SULFATEon 06-28-2022 DHEA-Sulfate 79.2 ug/dL Normal 57.3-279.2 [facility] Comment on above: Performed By: #### D HEASUL #### [facility] [address] [place] [address] Dr. Awilda Bryant ESTRADIOLon 06-28-2022 Estradiol 38.9 pg/mL Normal [facility] Comment on above: Result Comment: Adul t Female: Follicular phase 12.5 - 166.0 Ovulation phase 85.8 - 498.0 Luteal phase 43.8 - 211.0 Postmenopausal <6.0 - 54.7 1st trimester 215.0 - >4300.0 Perla ECLIA methodology Performed By: #### E STRADI #### [facility] [address] [place] [address] Dr. Awilda Bryant FSHon 06-28-2022 FSH 8.9 mIU/mL Normal [facility] Comment on above: Result Comment: Adul t Female: Follicular phase 3.5 - 12.5 Ovulation phase 4.7 - 21.5 Luteal phase 1.7 - 7.7 Postmenopausal 25.8 - 134.8 Performed By: #### C DIFPOC #### [facility] [address] [place] [address] Dr. Awilda Bryant PROLACTINon 06-28-2022 Prolactin 9.9 ng/mL Normal 4.8-23.3 [facility] Comment on above: Performed By: #### P ROLAC #### [facility] [address] [place] [address] Dr. Awilda Bryant TESTOSTERONE, TOTALon 2022 Testosterone [Mass/Vol] 18 ng/dL Normal 8-60 [facility] Comment on above: Performed By: #### T POAB #### [facility] [address] [place] [address] Dr. Awilda Bryant THYROGLOBULIN ABon Thyroglobulin Antibody <1.0 Normal 0.0-0.9 [facility] Comment on above: Result Comment: Thyr oglobulin Antibody measured by [employer] Methodology Performed By: #### T HYGAB #### [facility] [address] [place] [address] Dr. Awilda Bryant THYROID PEROXIDASE ABon 030 Thyroid Peroxidase (TPO) Ab <9 Normal 0-34 [facility] Comment on above: Performed By: #### T POAB #### [facility] [address] [place] [address] Dr. Awilda Bryant CBC AUTO DIFFon 06-27-2022 BASO # 0.1 103/ul Normal 0.0-0.1 [facility] Comment on above: Performed By: #### T POAB #### [facility] [address] [place] [address] Dr. Awilda Bryant Basophils/100 WBC (Bld) 0.9 % Normal 0.2-2.0 [facility] Comment on above: Performed By: #### T POAB #### [facility] [address] [place] [address] Dr. Awilda Bryant EO # 0.2 103/ul Normal 0.0-0.7 [facility] Comment on above: Performed By: #### T POAB #### [facility] [address] [place] [address] Dr. Awilda Bryant Eosinophils/100 WBC (Bld) 2.7 % Normal 0.9-7.0 [facility] Comment on above: Performed By: #### T POAB #### [facility] [address] [place] [address] Dr. Awilda Bryant Erythrocyte distribution width (RBC) [Ratio] 12.6 % Normal 11.0-15.0 [facility] Comment on above: Performed By: #### T POAB #### [facility] [address] [address] [address] Awilda Bryant Hematocrit (Bld) [Volume fraction] 42.0 % Normal 36.0-48.0 [facility] Comment on above: Performed By: #### T POAB #### [facility] [address] [address] [address] Awilda Bryant Hemoglobin (Bld) [Mass/Vol] 14.6 g/dL Normal 12.0-16.0 [facility] Comment on above: Performed By: #### T POAB #### [facility] [address] [place] [address] Dr. Awilda Bryant IG # 0.02 10e3/ul Normal 0.00-0.03 [facility] Comment on above: Performed By: #### T POAB #### [facility] [address] [place] [address] Dr. Awilda Bryant IG % 0.3 % Normal 0.0-0.5 [facility] Comment on above: Performed By: #### T POAB #### [facility] [address] [place] [address] Dr. Awilda Bryant LYMPH # 2.1 103/ul Normal 1.2-3.8 [facility] Comment on above: Performed By: #### T POAB #### [facility] [address] [place] [address] Dr. Awilda Bryant Lymphocytes/100 WBC (Bld) 31.2 % Normal 20.5-60.0 [facility] Comment on above: Performed By: #### T POAB #### [facility] [address] [place] [address] Dr. Awilda Bryant MANUAL DIFF REQ NO Normal [facility] Comment on above: Performed By: #### T POAB #### [facility] [address] [place] [address] Dr. Awilda Bryant MCH (RBC) [Entitic mass] 29.1 pg Normal 26.7-34.0 [facility] Comment on above: Performed By: #### T POAB #### [facility] [address] [address] [address] Awilda Bryant MCHC (RBC) [Mass/Vol] 34.8 g/dL Normal 29.9-35.2 [facility] Comment on above: Performed By: #### T POAB #### [facility] [address] [place] [address] Dr. Awlida Bryant MCV (RBC) [Entitic vol] 83.8 fL Normal 81.0-99.0 [facility] Comment on above: Performed By: #### T POAB #### [facility] [address] [place] [address] Dr. Awilda Bryant MONO # 0.5 103/ul Normal 0.3-0.8 [facility] Comment on above: Performed By: #### T POAB #### [facility] [address] [place] [address] Dr. Awilda Bryant Monocytes/100 WBC (Bld) 6.8 % Normal 1.7-12.0 [facility] Comment on above: Performed By: #### T POAB #### [facility] [address] [place] [address] Dr. Awilda Bryant NEUT # 3.9 103/ul Normal 1.4-6.5 [facility] Comment on above: Performed By: #### T POAB #### [facility] [address] [place] [address] Dr. Awilda Bryant Neutrophils/100 WBC (Bld) 58.1 % Normal 43.0-75.0 [facility] Comment on above: Performed By: #### T POAB #### [facility] [address] [place] [address] Dr. Awilda Bryant Platelet mean volume (Bld) [Entitic vol] 9.2 fL Critically low 9.5-13.5 [facility] Comment on above: Performed By: #### T POAB #### [facility] [address] [place] [address] Dr. Awilda Bryant PLT 412 103/ul Normal 150-450 [facility] Comment on above: Performed By: #### T POAB #### [facility] [address] [place] [address] Dr. Awilda Bryant RBC 5.01 106/ul Normal 4.20-5.40 [facility] Comment on above: Performed By: #### T POAB #### [facility] [address] [place] [address] Dr. Awilda Bryant WBC 6.7 103/ul Normal 4.0-11.0 [facility] Comment on above: Performed By: #### T POAB #### [facility] [address] [place] [address] Dr. Awilda Bryant FREE T3on 06-27-2022 FREE T3 2.68 pg/mlL Normal 2.18-3.98 [facility] Comment on above: Performed By: #### T POAB #### [facility] [address] [place] [address] Dr. Awilda Bryant FREE T4on 06-27-2022 Free T4 [Mass/Vol] 1.24 ng/dL Normal 0.76-1.46 [facility] Comment on above: Performed By: #### C DIFPOC #### [facility] [address] [place] [address] Dr. Awilda Bryant LIPID PROFILEon 06-27-2022 CHOL-HDL RATIO NORM SEE BELOW Normal [facility] Comment on above: Result Comment: 3.3 - 4.4 LOW RISK 4.4 - 7.1 AVERAGE RISK 7.1 - 11.0 MODERATE RISK >11.0 HIGH RISK Performed By: #### T POAB #### [facility] [address] [place] [address] Dr. Awilda Bryant Cholesterol [Mass/Vol] 179 mg/dL Normal <=200 [facility] Comment on above: Performed By: #### T POAB #### [facility] [address] [place] [address] Dr. Awilda Bryant Cholesterol in HDL [Mass/Vol] 44 mg/dL Normal 40-60 [facility] Comment on above: Performed By: #### T POAB #### [facility] [address] [address] [address] Awilda Bryant Cholesterol in LDL [Mass/Vol] 111.8 mg/dL Normal [facility] Comment on above: Performed By: #### T POAB #### [facility] [address] [address] [address] Awilda Bryant Cholesterol.total/C holesterol in HDL [Mass ratio] 4.1 {ratio} Normal [facility] Comment on above: Performed By: #### T POAB #### [facility] [address] [address] [address] Awilda Bryant HDL NORMAL > or = 60 mg/dl - LO W CARDIOVASCULAR RISK <40 mg/dl - HIGH CARDIOVASCULAR RISK Normal [facility] Comment on above: Performed By: #### T POAB #### [facility] [address] [address] [address] Awilda Bryant LDL CALC NORMAL SEE BELOW Normal [facility] Comment on above: Result Comment: <100 mg/dl OPTIMAL 100 - 129 mg/dl NEAR OR ABOVE OPTIMAL 130 - 159 mg/dl BORDERLINE HIGH 160 - 189 mg/dl HIGH >190 mg/dl VERY HIGH Performed By: #### T POAB #### [facility] [address] [address] [address] Awilda Bryant Triglyceride [Mass/Vol] 116 mg/dL Normal <=150 [facility] Comment on above: Performed By: #### T POAB #### [facility] [address] [address] [address] Awilda Bryant VLDL CALC 23.2 mg/dL Normal [facility] Comment on above: Performed By: #### T POAB #### [facility] [address] [address] [address] Awilda Bryant PROF 14(COMP METB)on 023 Albumin [Mass/Vol] 3.9 g/dL Normal 3.4-5.0 [facility] Comment on above: Performed By: #### T POAB #### [facility] [address] [address] [address] Awilda Bryant Albumin/Globulin [Mass ratio] 1.1 {ratio} Normal [facility] Comment on above: Performed By: #### T POAB #### [facility] [address] [address] [address] Awilda Bryant ALP [Catalytic activity/Vol] 70 U/L Normal 46-116 [facility] Comment on above: Performed By: #### T POAB #### [facility] [address] [address] [address] Awilda Bryant ALT [Catalytic activity/Vol] 22 U/L Normal 14-59 [facility] Comment on above: Performed By: #### T POAB #### [facility] [address] [address] [address] Awilda Bryant Anion gap [Moles/Vol] 11.5 mmol/L Normal [facility] Comment on above: Performed By: #### T POAB #### [facility] [address] [place] [address] Dr. Awilda Bryant AST [Catalytic activity/Vol] 16 U/L Normal 15-37 [facility] Comment on above: Performed By: #### T POAB #### [facility] [address] [place] [address] Dr. Awilda Bryant Bilirubin [Mass/Vol] 0.5 mg/dL Normal 0.2-1.0 [facility] Comment on above: Performed By: #### T POAB #### [facility] [address] [address] [address] Awilda Bryant Calcium [Mass/Vol] 9.3 mg/dL Normal 8.5-10.1 [facility] Comment on above: Performed By: #### T POAB #### [facility] [address] [address] [address] Awilda Bryant Chloride [Moles/Vol] 104 mmol/L Normal 98-107 [facility] Comment on above: Performed By: #### T POAB #### [facility] [address] [address] [address] Awilda Bryant CO2 [Moles/Vol] 28.3 mmol/L Normal 21.0-32.0 [facility] Comment on above: Performed By: #### T POAB #### [facility] [address] [address] [address] Awilda Bryant Creatinine [Mass/Vol] 0.52 mg/dL Critically low 0.55-1.02 [facility] Comment on above: Performed By: #### T POAB #### [facility] [address] [address] [address] Awilda Bryant EGFR-AF OMANI >60 Normal >=60 [facility] Comment on above: Performed By: #### T POAB #### [facility] [address] [address] [address] Awilda Bryant EGFR-NON AF OMANI >60 Normal >=60 [facility] Comment on above: Performed By: #### T POAB #### [facility] [address] [address] [address] Awilda Bryant Globulin (S) [Mass/Vol] 3.6 g/dL Normal [facility] Comment on above: Performed By: #### T POAB #### [facility] [address] [place] [address] Dr. Awilda Bryant Glucose [Mass/Vol] 105 mg/dL Normal 74-106 [facility] Comment on above: Performed By: #### T POAB #### [facility] [address] [place] [address] Dr. Awilda Bryant Potassium [Moles/Vol] 3.8 mmol/L Normal 3.5-5.1 [facility] Comment on above: Performed By: #### T POAB #### [facility] [address] [address] [address] Awilda Bryant Protein [Mass/Vol] 7.5 g/dL Normal 6.4-8.2 [facility] Comment on above: Performed By: #### T POAB #### [facility] [address] [place] [address] Dr. Awilda Bryant Sodium [Moles/Vol] 140 mmol/L Normal 136-145 [facility] Comment on above: Performed By: #### T POAB #### [facility] [address] [place] [address] Dr. Awilda Bryant Urea nitrogen [Mass/Vol] 16.0 mg/dL Normal 7.0-18.0 [facility] Comment on above: Performed By: #### T POAB #### [facility] [address] [place] [address] Dr. Awilda Bryant Urea nitrogen/Creatinine [Mass ratio] 30.8 mg/mg Normal [facility] Comment on above: Performed By: #### T POAB #### [facility] [address] [place] [address] Dr. Awilda Bryant TSHon 06-27-2022 TSH 1.228 uIU/mL Normal 0.358-3.740 [facility] Comment on above: Performed By: #### T POAB #### [facility] [address] [place] [address] Dr. Awilda Bryant VITAMIN B12on 06-27-2022 Cobalamin (Vitamin B12) [Mass/Vol] 323.0 pg/mL Normal 193.0-986.0 [facility] Comment on above: Performed By: #### C DIFPOC #### [facility] [address] [place] [address] Dr. Awilda Bryant VITAMIN D 25 OHon 06-27-2022 VIT D 25-OH 26.9 ng/mL Normal [facility] Comment on above: Performed By: #### T POAB #### [facility] [address] [place] [address] Dr. Awilda Bryant VIT D RANGES SEE BELOW [facility] Comment on above: Result Comment: <20 ng/mL Vit D deficient 20 - <30 ng/mL Vit D insufficient 30 - 100 ng/mL Vit D sufficient >100 ng/mL Potential Toxicity Performed By: #### T POAB #### [facility] [address] [place] [address] Dr. Awilda Bryant PAP ACOG PANEL 2: 30 to 65on 11-13-2021 . . Normal [facility] Comment on above: Result Comment: Perf ormed at: WB Performed By: #### [id number] #### [facility] [address] [place] [address] Dr. Awilda Bryant Age Gdln ACOG Testing 30-65 Normal [facility] Comment on above: Performed By: #### [id number] #### [facility] [address] [place] [address] Dr. Awilda Bryant DIAGNOSIS: Comment Normal [facility] Comment on above: Result Comment: NEGA TIVE FOR INTRAEPITHELIAL LESION OR MALIGNANCY. Performed at: WB Performed By: #### [id number] #### [facility] [address] [place] [address] Dr. Awilda Bryant HPV Aptima Negative Normal Negative [facility] Comment on above: Result Comment: This nucleic acid amplification test detects fourteen high-risk HPV types (16,18,31,33,35,39,45,51,52,56,58,59,66,68) without differentiation. Performed at: =G Performed By: #### [id number] #### [facility] [address] [place] [address] Dr. Awilda Bryant Methodology: Comment Normal [facility] Comment on above: Result Comment: This liquid based ThinPrep(R) pap test was screened with the use of an image guided system. Performed at: WB Performed By: #### [id number] #### [facility] [address] [place] [address] Dr. Awilda Bryant Note: Comment Normal [facility] Comment on above: Result Comment: The Pap smear is a screening test designed to aid in the detection of premalignant and malignant conditions of the uterine cervix. It is not a diagnostic procedure and should not be used as the sole means of detecting cervical cancer. Both false-positive and false-negative reports do occur. . Performed at: WB Performed By: #### [id number] #### [facility] [address] [place] [address] Dr. Awilda Bryant Performed by: Comment Normal [facility] Comment on above: Result Comment: Isi Shook, Stick Roller (ASCP) Performed at: WB Performed By: #### [id number] #### [facility] [address] [place] [address] Dr. Awilda Bryant Specimen adequacy: Comment Normal [facility] Comment on above: Result Comment: Sati sfactory for evaluation. Endocervical and/or squamous metaplastic cells (endocervical component) are present. Performed at: WB Performed By: #### [id number] #### [facility] [address] [address] [address] 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 Facility:[facility] Start: 09-10-2022 End: 09-11-2022 ambulatory [employer] HAYLEY KYARA Facility:[facility] Start: 09-06-2022 End: 09-07-2022 ambulatory MIKE WHITTENA KYARA Facility:[facility] Start: 07-18-2022 End: 07-19-2022 ambulatory MIKE WHITTENA KYARA Facility:[facility] Start: 06-27-2022 End: 06-28-[address] DOCTOR PUENTE Facility:[facility] Start: 11-09-2021 End: 11-09-[address] BENITO BURTON . Facility:[facility] Plan of Treatment Date Care Activity Detail Author Start: 02-16-2024 End: 02-16-2024 Patient encounter procedure 02/16/2024 6:40 PM EDT Office Visit [facility] [address] [place] [address] Hayley Lemus NP [address] [place] [address] [facility] Start: 2014 Screening for malign ant neoplasm of cervix [facility] Start: 2005 Screening for malign ant neoplasm of cervix Pap Smear [facility] Healthcare Payers Date Payer Category Payer Medicaid (Managed Care) [employer] [id number] 1984 Unknown [id number]. 593 1984 Unknown [id number]. 593 1984 Unknown [id number] [id number]. 593 1984 Unknown [id number] [id number]. 593 1984 Unknown [id number] [id number]. 593 1984 Unknown [id number] [id number]. 593 1984 Unknown [id number] [id number]. 1259 1984 Unknown [id number] [id number]. 1259 1984 Unknown [id number] [id number]. 1259 1959 Unknown [id number] Social History Date Type Detail Facility Start: 11-04-2023 Tobacco smoking stat RUSTIS Never smoked tobacco [facility] Start: 11-04-2023 Tobacco use and exposure Smoke less tobacco non-user [facility] Start: 12-17-2023 Alcoholic beverage intake Life time non-drinker (finding) [facility] Start: 12-17-2023 History of Social function [facility] Start: 12-17-2023 Tobacco use panel [facility] Start: 11-04-2023 Alcohol Comment caffine: 1 1/2 cups of coffee weekly [facility] Start: 1984 Sex assigned at Not on file [facility] Evaluation note Note Date & Type Note Facility Evaluation note Diagnosis Essential hypertension (CMS/HCC)- Primary Unspecified essential hypertension Morbid obesity (CMS/HCC) Morbid obesity Essential (primary) hypertension (CMS/HCC) Unspecified essential hypertension Essential hypertension (CMS/HCC)- Primary Unspecified essential hypertension Morbid obesity (CMS/HCC) Morbid obesity Pain in left lumbar region of back Essential (primary) hypertension (CMS/HCC) Unspecified essential hypertension Essential (primary) hypertension (CMS/HCC) Unspecified essential hypertension documented in this encounter [facility] Summary Purpose Family History No Family History Records FoundNo Family History Records Found Advance Directives No Advanced Directives Records FoundNo Advanced Directives Records Found Additional Source Comments INFORMATION SOURCE (unrecogn ized section and content) DATE CREATED AUTHOR 10/04/2022 [facility] DATE CREATED AUTHOR AUTHOR'S ORGANIZ ATION 12/19/2023 [facility] EPIC Reason for Visit (unrecogniz ed section and content) Reason Comments Med Refill Care Teams (unrecognized sec tion and content) Anesthesiologist And Critical Care Relationship Specialty Start Date End Date Dae Amato MD [address] [place] [id number] PCP - General Family Medicine 10/23/23 Hayley Lemus NP [address] [place] [phone] PCP - [facility] 10/27/23 Hayley Lemus NP [address] [place] [address] Nurse Practitioner Family Medicine 04/28/22 FOR RECORDS PERTAINING TO PATIENTS WHO ARE [...] BE BASED ON THE PRIMARY CLINICAL RECORDS. [facility] [employer] provides no warranty or guarantee of the accuracy or completeness of information in this document.
--- NOTE | 2024-03-07 11:33 | PC.NURSE ---
pt c/o sore throat x2 weeks and this a.m. back pain.
[2024-03-07 12:11] LABS: Bilirubin Urine SMALL (NEGATIVE); Blood Urine LARGE (NEGATIVE); Clarity Urine CLEAR (CLEAR); Color Urine DK. YELLOW (YELLOW); Glucose Urine UA NEGATIVE (NEGATIVE); Ketones Urine TRACE mg/dL (NEGATIVE); Leukocyte Esterase Urine NEGATIVE (NEGATIVE); Nitrite Urine NEGATIVE (NEGATIVE); Protein Urine 30 mg/dL (NEG/TRACE); Specific Gravity Urine 1.025 (1.005-1.025)
[2024-03-07 12:12] LABS: Urine Microscopic Indicated YES
[2024-03-07 12:13] LABS: Internal Control Within Normal Limits; Strep A Antigen Screen Negative
--- NOTE | 2024-03-07 12:14 | CT_ITS ---
The [address] [address] Patient Name: ALAN BRAVO MRN: [id number] date: 1985 Sex: F Assigned Patient Location: ER Current Patient Location: Accession/Order Number: [id number] Exam Date: 03/07/2024 12:30 Report Date: 03/07/2024 13:25 At the request of: DENYS KELLY Procedure: CT abdomen pelvis wo con EXAM: CT abdomen pelvis wo con HISTORY: right flank pain COMPARISON: None. TECHNIQUE: Axial CT imaging was performed through the abdomen and pelvis without intravenous contrast. Multiplanar reformats were performed. Dose reduction techniques were achieved by using automated exposure control and/or adjustment of mA and/or kV according to patient size and/or use of iterative reconstruction technique. FINDINGS: Lung bases: Lung bases are clear. No pleural effusion. GI upper: Unremarkable. Liver: Normal size and contour. Gallbladder: No significant abnormality. No cholelithiasis. Biliary system: No intra or extrahepatic biliary ductal dilatation. Spleen: Normal size. Pancreas: Unremarkable. Adrenal glands: Normal adrenal glands. Kidneys/ureters: Normal contours. No hydronephrosis. No nephrolithiasis or ureterolithiasis. Vessels: No aneurysm. Lymph Nodes: No lymphadenopathy. Small bowel: No wall thickening or dilatation. Colon: No wall thickening or dilatation. Sigmoid diverticulosis without evidence of acute diverticulitis. Appendix: No findings of appendicitis. Peritoneal cavity: No free fluid or pneumoperitoneum. Lower : Unremarkable. Bones: No acute bony abnormality. Soft tissues: No acute finding. Additional findings: None. CT/CT abdomen pelvis wo con IMPRESSION: Unremarkable noncontrast CT of the abdomen and pelvis. No acute abnormality. Electronically authenticated by: ISAAC MCGRAW Date: 03/07/2024 13:25
[2024-03-07 12:21] LABS: Basophils Absolute Auto 0.1 10^3/uL (0.0-0.1); Basophils Percent Auto 0.3 % (0.2-2.0); Eosinophils Percent Auto 0.2 % (0.9-7.0); Hematocrit 39.4 % (36.0-48.0); Hemoglobin 13.4 g/dL (12.0-16.0); Immature Granulocytes Abs Auto 0.08 10^3/uL (0.00-0.03); Immature Granulocytes Pct Auto 0.5 % (0.0-0.5); Lymphocytes Absolute Auto 1.4 10^3/uL (1.2-3.8); Mean Corpuscular Hemoglobin 29.3 pg (26.7-34.0); Mean Corpuscular Volume 86.2 fL (81.0-99.0); Mean Platelet Volume 9.6 fL (9.5-13.5); Monocytes Absolute Auto 1.1 10^3/uL (0.3-0.8); Monocytes Percent Auto 6.3 % (1.7-12.0); Neutrophils Absolute Auto 14.6 10^3/uL (1.4-6.5); Neutrophils Percent Auto 84.7 % (43.0-75.0); Platelet Count 342 10^3/uL (150-450); Red Blood Count 4.57 10^6/uL (4.20-5.40); Red Cell Distribution Width 12.9 % (11.0-15.0); White Blood Count 17.3 10^3/uL (4.0-11.0)
[2024-03-07] MEDS: KETOROLAC TROMETHAMINE 30 MG/ML VIAL 15 MG IM (12:24)
[2024-03-07 12:27] LABS: HCG Quantitative <1 mIU/mL
[2024-03-07 12:31] LABS: RBC Urine 20-50 #/HPF (0-2)
[2024-03-07 12:32] LABS: Bacteria Urine SMALL #/HPF (NONE SEEN); Cast Seen? SEEN #/LPF (NONE SEEN); Crystals Seen? None Seen #/HPF (None Seen); Hyaline Casts Urine RARE; Mucus Urine MODERATE (NONE SEEN); Squamous Epithelial Cell Urine FEW #/LPF (NONE/RARE); Urine Culture Indicated YES
[2024-03-07 12:38] LABS: Alanine Aminotransferase 18 U/L (14-59); Albumin Globulin Ratio 0.7; Albumin Level 3.2 g/dL (3.4-5.0); Alkaline Phosphatase 76 U/L (46-116); Anion Gap 15.5; Aspartate Amino Transferase 13 U/L (15-37); BUN Creatinine Ratio 12.5; Bilirubin Total 0.5 mg/dL (0.2-1.0); Calcium 8.9 mg/dL (8.5-10.1); Carbon Dioxide 24.9 mmol/L (21.0-32.0); Chloride 105 mmol/L (98-107); Estimated GFR (African America >60 (>=60 mL/min/1.73m^2); Estimated GFR (Non-African Ame >60 (>=60 mL/min/1.73m^2); Globulin 4.3 g/dL; Glucose 113 mg/dL (74-106); Potassium 3.4 mmol/L (3.5-5.1); Sodium 142 mmol/L (136-145); Total Protein 7.5 g/dL (6.4-8.2)
--- NOTE | 2024-03-07 13:43 | ED_ITS ---
HPI HPI - General Adult General Chief complaint: Upper Respiratory Infection Stated complaint: ABDOMINAL PAIN Time Seen by Provider: 03/07/24 11:41 Source: patient Mode of arrival: walk-in Limitations: no limitations History of Present Illness HPI narrative: The patient coming to the ER with a sore throat for the last 1 week she also started this morning having this right flank pain with no radiation, pain is crampy like it comes mostly with nausea and it does not associated with any burning with urination or any frequency According to her the pain is severe when it comes to the cramp and she denies any similar presentation like this before Related Data Previous Rx's ?Medication ?Instructions ?Recorded levofloxacin 750 mg tablet 750 mg PO DAILY 5 days #5 tabs 03/07/24 Allergies Allergy/AdvReac Type Severity Reaction Status Date / Time amoxicillin Allergy Mild Unknown Verified 03/07/24 11:27 Opioid HPI Opioid Management Most Recent Opioid Data: Last Pain Scale 1 03/07/24 12:24 03/07/24 Last MAR Pain Assessment 03/07/24 12:24 Review of Systems ROS Status of ROS 10 or more systems reviewed and unremark able except as noted in history and below PFSH PFSH Social History Little interest or pleasure in doing things: not at all Feeling down, depressed, or hopeless: not at all Exam Narrative Exam Narrative: Nurses notes and vital signs reviewed and patient is not hypoxic. General: Well-appearing and in no apparent distress. Skin: Warm, dry, no pallor noted. No rash. Head: Normocephalic, atraumatic. Neck: Supple, non-tender. Eye: Pupils are equal, round and EOMI. No scleral icterus. Ears, Nose, Mouth, and Throat: TM are clear, no nasal mucosal hypertrophy. Oral mucosa is moist, significant tonsillar erythema noted, uvula is mid-line Cardiovascular: Regular Rate and Rhythm without murmur, gallop or rub. Respiratory: No accessory muscle use or respiratory distress. Lungs are clear to auscultation, no wheezing, rales or rhonchi Chest Wall: no tenderness Back: No midline thoracic or lumbar vertebral tenderness. Right CVA tenderness Musculoskeletal: normal ROM, no calf or popliteal tenderness, no lower extremity edema/swelling GI: Abdomen is soft, non-distended. Normal bowel sounds. No masses appreciated. No tenderness to palpation. No rebound, guarding, or rigidity noted. Neurological: A&O x4. No cranial nerve dysfunction observed. No truncal ataxia. Moves all extremities. Sensation intact. Psychiatric: Cooperative and interactive. Normal mood and affect. Constitutional Vital Signs, click to edit/add: Last Vital Signs Temp 97.5 F L 03/07/24 11:27 Pulse 92 H 03/07/24 11:27 Resp 18 03/07/24 11:27 BP 137/97 H 03/07/24 11:27 Pulse Ox 99 03/07/24 11:27 O2 Del Method Room Air 03/07/24 11:27 Course Vital Signs Vital signs: Vital Signs Temperature 97.5 F L 03/07/24 11:27 Pulse Rate 92 H 03/07/24 11:27 Respiratory Rate 18 03/07/24 11:27 Blood Pressure 137/97 H 03/07/24 11:27 Pulse Oximetry 99 03/07/24 11:27 Oxygen Delivery Method Room Air 03/07/24 11:27 Temperature 97.5 F L 03/07/24 11:27 Pulse Rate 92 H 03/07/24 11:27 Respiratory Rate 18 03/07/24 11:27 Blood Pressure 137/97 H 03/07/24 11:27 Pulse Oximetry 99 03/07/24 11:27 Oxygen Delivery Method Room Air 03/07/24 11:27 Medical Decision Making [facility] Narrative Medical decision making narrative: The patient CBC shows leukocytosis Analysis showed RBCs and some signs of infection but the patient chemistry was within normal CAT scan of the abdomen pelvis showed no kidney stone Patient was feeling better after Toradol Right now she also had a strep test that was negative She was discharged home with levofloxacin as possible coverage for UTI The patient is to follow up with primary care physician in next 2-3 days or to return to the emergency department should any of the signs or symptoms worsen or new symptoms develop. The patient agrees with the following Diagnosis and Treatment plan and the patient will be discharged home. Lab Data Labs: Lab Results 03/07/24 03/07/24 03/07/24 Range/Units 11:50 11:53 11:56 WBC 17.3 H (4.0-11.0) 10^3/uL RBC 4.57 (4.20-5.40) 10^6/uL Hgb 13.4 (12.0-16.0) g/dL Hct 39.4 (36.0-48.0) % MCV 86.2 (81.0-99.0) fL MCH 29.3 (26.7-34.0) pg MCHC 34.0 (29.9-35.2) g/dL RDW 12.9 (11.0-15.0) % Plt Count 342 (150-450) 10^3/uL MPV 9.6 (9.5-13.5) fL Neut % (Auto) 84.7 H (43.0-75.0) % Lymph % (Auto) 8.0 L (20.5-60.0) % [place] % (Auto) 6.3 (1.7-12.0) % Eos % (Auto) 0.2 L (0.9-7.0) % Baso % (Auto) 0.3 (0.2-2.0) % Neut # (Auto) 14.6 H (1.4-6.5) 10^3/uL Lymph # (Auto) 1.4 (1.2-3.8) 10^3/uL [place] # (Auto) 1.1 H (0.3-0.8) 10^3/uL Eos # (Auto) 0.0 (0.0-0.7) 10^3/uL Baso # (Auto) 0.1 (0.0-0.1) 10^3/uL Abs Immat Gran (auto) 0.08 H (0.00-0.03) 10^3/uL Imm/Tot Granulo (auto) 0.5 (0.0-0.5) % Sodium 142 (136-145) mmol/L Potassium 3.4 L (3.5-5.1) mmol/L Chloride 105 (98-107) mmol/L Carbon Dioxide 24.9 (21.0-32.0) mmol/L Anion Gap 15.5 BUN 10.0 (7.0-18.0) mg/dL Creatinine 0.80 (0.55-1.02) mg/dL Est GFR ( Amer) >60 (>=60 mL/min/1.73m^2) Est GFR (Non-Af Amer) >60 (>=60 mL/min/1.73m^2) BUN/Creatinine Ratio 12.5 Glucose 113 H (74-106) mg/dL Calcium 8.9 (8.5-10.1) mg/dL Total Bilirubin 0.5 (0.2-1.0) mg/dL AST 13 L (15-37) U/L ALT 18 (14-59) U/L Alkaline Phosphatase 76 (46-116) U/L Total Protein 7.5 (6.4-8.2) g/dL Albumin 3.2 L (3.4-5.0) g/dL Globulin 4.3 g/dL Albumin/Globulin Ratio 0.7 HCG, Quant <1 mIU/mL Urine Color Dk. yellow (YELLOW) Urine Clarity Clear (CLEAR) Urine pH 6.0 (5.0-9.0) Ur Specific Elliott 1.025 (1.005-1.025) Urine Protein 30 A (NEG/TRACE) mg/dL Urine Glucose (UA) Negative (NEGATIVE) mg/dL Urine Ketones Trace A (NEGATIVE) mg/dL Urine Occult Blood Large A (NEGATIVE) Urine Nitrite Negative (NEGATIVE) Urine Bilirubin Small A (NEGATIVE) Urine Urobilinogen 2.0 A (0.2-1.0) EU/dL Ur Leukocyte Esterase Negative (NEGATIVE) Urine RBC 20-50 A (0-2) #/HPF Urine WBC 2-5 A (NONE SEEN) #/HPF Ur Squamous Epith Cells Few A (NONE/RARE) #/LPF Urine Crystals None seen (None Seen) #/HPF Urine Bacteria Small A (NONE SEEN) #/HPF Urine Casts Seen A (NONE SEEN) #/LPF Hyaline Casts Rare Urine Mucus Moderate A (NONE SEEN) Ur Culture Indicated? Yes Streptococcus Screen Negative Discharge Plan Discharge Chief Complaint: Upper Respiratory Infection Clinical Impression: Pharyngitis, UTI (urinary tract infection) Patient Disposition: Home, Self-Care Time of Disposition Decision: 13:44 Condition: Good Prescriptions / Home Meds: New levofloxacin 750 mg tablet 750 mg PO DAILY 5 Days Qty: 5 0RF Print Language: Kyrgyz Instructions: Urinary Tract Infection in Women (DC), Pharyngitis (ED) Referrals: Nate Pryor DO [Primary Care Provider] - 1 week Discharge Date/Time: 03/07/24 13:53
[2024-03-07] MEDS: LEVOFLOXACIN 750 MG TABLET PO (13:50)
== END 2024-03-07 13:53 | disposition home or self-care (01) ==
PROVIDERS: Emergency Provider Emergency Medicine; PCP Obstetrics & Gynecology
DX: J02.9 Acute pharyngitis, unspecified (principal); N39.0 Urinary tract infection, site not specified
CPT/HCPCS: 36415; 74176; 80053; 81001; 84702; 85025; 87070; 87086; 87880; 96372; 99284; J1885

== ENCOUNTER 2025-01-17 08:36 | Outpatient (OUT) | payer OTHER, SELFPAY ==
--- OUTSIDE RECORDS SUMMARY | 2025-01-17 08:40 | XMS_ITS | CCD ---
Author Organization [facility] Care Team Providers Care Thrasher Feeder Name Role Phone MISC, DR STOCKTON Attending Unavailable MISC, DR STOCKTON Consulting Unavailable MISC, DR STOCKTON Admitting Unavailable AICHHOLZ, UMBRELLA CUTTER HAYLEY Primary Care Unavailable KARASIK ., DR OLIVER Consulting Unavailabl e KARASIK ., DR OLIVER Admitting Unavailabl e AICHHOLZ, UMBRELLA CUTTER HAYLEY Primary Care Unavailable KARASIK ., DR OLIVER Attending Unavailabl e AICHHOLZ, UMBRELLA CUTTER HAYLEY Admitting Unavailable AICHHOLZ, UMBRELLA CUTTER HAYLEY Attending Unavailable AICHHOLZ, UMBRELLA CUTTER HAYLEY Primary Care Unavailable KARASIK ., DR OLIVER Admitting Unavailabl e AICHHOLZ, UMBRELLA CUTTER HAYLEY Primary Care Unavailable KARASIK ., DR OLIVER Attending Unavailabl e AICHHOLZ, UMBRELLA CUTTER HAYLEY Admitting Unavailable AICHHOLZ, UMBRELLA CUTTER HAYLEY Attending Unavailable AICHHOLZ, UMBRELLA CUTTER HAYLEY Consulting Unavailable AICHHOLZ, UMBRELLA CUTTER HAYLEY Primary Care Unavailable AICHHOLZ, UMBRELLA CUTTER HAYLEY Admitting Unavailable AICHHOLZ, UMBRELLA CUTTER HAYLEY Attending Unavailable AICHHOLZ, UMBRELLA CUTTER HAYLEY Consulting Unavailable AICHHOLZ, UMBRELLA CUTTER HAYLEY Primary Care Unavailable BRE MAS Attending Unavailable AICHHOLZ, HAYLEY Attending Unavailable AICHHOLZ, HAYLEY Attending Unavailable Aich[employer]z [employer] SALES REPRESENTATIVE, Hayley Unavailable Dae Amato MD Primary Care Provider [phone] [employer]ich[employer]z [employer] SALES REPRESENTATIVE, Hayley Unavailable Aicaniceto SMALL BUSINESS SALES REPRESENTATIVE-CHayley Primary Care Provider [employer]ican[employer] SMALL BUSINESS SALES REPRESENTATIVE-Hayley Dorsey Attending Provider [phone] Allergies Allergy Classification Reported Allergen(s) Allergy Type Date of Onset Reaction(s) Facility (1 source) Amoxicillin Drug Allergy 04-19-2015 [facility] Repository (4 sources) Penicillin G Drug Allergy 10-02-2023 [facility] Work Phone: Medications Current Medications Medication Drug Class(es) Dates Sig (Normalized) Sig (Original) busPIRone hydrochloride 5 mg oral tablet (6 sources) Start: 01-12-2025 End: 01-13-2025 take 1 tablet by mouth twice daily as needed for anxiety Buspirone 5 mg tablet Active 5 MG PO Twice daily as needed for anxiety 60 January 13, 2025 12:02pm Complies with drug therapy Start: 10-16-2023 take 1 tablet by jenna th in the morning busPIRone (Buspar) 5 MG tablet Indications: Generalized anxiety disorder (CMS/HCC) Take 1 tablet (5 mg) by mouth in the morning and 1 tablet (5 mg) before bedtime. 60 tablet 1 10/16/2023 Active losartan potassium 25 mg oral tablet (9 sources) Angiotensin 2 Receptor Dilma Start: 01-13-2025 take 1 tablet by mouth once daily Losartan 25 mg tablet Active 25 MG PO Daily January 13, 2025 12:00am Complies with drug therapy Start: 01-12-2025 End: 01-13-2025 take 1 tablet by mouth once daily Losartan 50 mg tablet Discontinued 50 MG PO Daily January 12, 2025 12:00am January 13, 2025 12:02pm Start: 11-04-2023 End: 05-09-2024 take 1 tablet by mouth once daily losartan (Cozaar) 50 MG tablet Indications: Essential (primary) hypertension (CMS/HCC) Take 1 tablet (50 mg) by mouth Daily 30 tablet 2 12/17/2023 01/16/2024 Active Completed/Discontinued Medications Medication Drug Class(es) Dates Sig (Normalized) Sig (Original) 24 hr metFORMIN hydrochloride 500 mg extended release oral tablet (3 sources) Biguanide Start: 10-08-2023 End: 10-07-2024 take 1 tablet by mouth every twenty-four hours at mealtime metFORMIN XR (Glucophage-XR) 500 MG 24 hr tablet Indications: PCOS (polycystic ovarian syndrome) Take 1 tablet (500 mg) by mouth in the evening. Take with meals Do not crush, chew, or split. 30 tablet 11 10/08/2023 12/17/2023 Discontinued (Therapy completed) Problems Active Problems Problem Classification Problem Date Documented Da te Episodic/Chronic Anxiety disorders (6 sources) Generalized anxiety disorder; Translations: [Generalized anxiety disorder] Onset: 06-19-2023 06-19-2023 Chronic Essential hypertension (15 sources) Essential (primary) hypertension; Translations: [Essential hypertension] Onset: 07-18-2022 Chronic Headache; including migraine (6 sources) Migraine; Translations: [Migraine, unspecified, not intractable, without status migrainosus] Onset: 11-04-2023 11-04-2023 Chronic Menstrual disorders (1 source) Excessive and frequent menstruation with irregular cycle; Translations: [EXCESS AND FREQ MEN W/IRREG CYCLE] Onset: 07-01-2022 Chronic Nutritional deficiencies (1 source) Vitamin D deficiency, unspecified; Translations: [VITAMIN D DEFICIENCY UNSPECIFIED] Onset: 2022 Chronic Other endocrine disorders (6 sources) Hyperinsulinism; Translations: [Other hypoglycemia] Onset: 11-04-2023 11-04-2023 Chronic Other gastrointestinal disorders (4 sources) Other fecal abnormalities; Translations: [OTHER FECAL ABNORMALITIES] Onset: 09-10-2022 Episodic Other gastrointestinal disorders (4 sources) Diarrhea, unspecified; Translations: [DIARRHEA UNSPECIFIED] Onset: 09-06-2022 Episodic Other infections; including parasitic (5 sources) Personal history of other infectious and parasitic diseases; Translations: [History of COVID-19] Onset: 11-04-2023 11-04-2023 Episodic Other nutritional; endocrine; and metabolic disorders (1 source) Obesity, unspecified; Translations: [OBESITY UNSPECIFIED] Onset: 2022 Chronic Other nutritional; endocrine; and metabolic disorders (8 sources) Morbid obesity; Translations: [Morbid (severe) obesity due to excess calories] Onset: 11-04-2023 11-04-2023 Chronic Other and delivery including normal (4 sources) Encounter for care and examination of lactating mother; Translations: [ENC CARE AND EXAM LACTATING MOTHER] Onset: 09-24-2022 Episodic Residual codes; unclassified (6 sources) Obstructive sleep apnea syndrome; Translations: [Obstructive sleep apnea (adult) (pediatric)] Onset: 11-04-2023 11-04-2023 Chronic Spondylosis; intervertebral disc disorders; other back problems (6 sources) Lumbago; Translations: [Pain in left lumbar region [...] Ova + Parasite Exam Final report Normal [facility] Comment on above: Result Comment: Thes e results were obtained using wet preparation(s) and trichrome stained smear. This test does not include testing for Cryptosporidium parvum, Cyclospora, or Microsporidia. Performed By: #### O VAPE #### [facility] [address] [address] [address] Awilda Bryant Result 1 Comment Normal [facility] Comment on above: Result Comment: No o va, cysts, or parasites seen. . One negative specimen does not rule out the possibility of a parasitic infection. Performed By: #### O VAPE #### [facility] [address] [place], [place] [address] Dr. Awilda Bryant STOOL CULTUREon 09-10-2022 Campylobacter Culture Final report Normal [facility] Comment on above: Performed By: #### T POAB #### [facility] [address] [place] [address] Dr. Awilda Bryant E coli Shiga Toxin EIA Negative Normal Negative [facility] Comment on above: Performed By: #### T POAB #### [facility] [address] [place] [address] Dr. Awilda Bryant Result 1 Comment Normal [facility] Comment on above: Result Comment: No S almonella or Shigella recovered. Performed By: #### T POAB #### [facility] [address] [place] [address] Dr. Awilda Braynt Result Comment: No C ampylobacter species isolated. Salmonella/Shigella Screen Final report Normal [facility] Comment on above: Performed By: #### T POAB #### [facility] [address] [place] [address] Dr. Awilda Bryant C. DIFF PCRon 09-06-2022 C. DIFFICILE PCR Negative Normal NEGATIVE [facility] Comment on above: Performed By: #### C DIFPOC #### [facility] [address] [place] [address] Dr. Awilda Bryant OCC BLD IMMUNO SCREENon 08-26 OCCULT BLOOD Positive Abnormal NEGATIVE [facility] Comment on above: Performed By: #### C DIFPOC #### [facility] [address] [place] [address] Dr. Awilda Bryant CBC AUTO DIFFon 07-18-2022 BASO # 0.1 103/ul Normal 0.0-0.1 [facility] Comment on above: Performed By: #### C DIFPOC #### [facility] [address] [place] [address] Dr. Awilda Bryant Basophils/100 WBC (Bld) 0.7 % Normal 0.2-2.0 [facility] Comment on above: Performed By: #### C DIFPOC #### [facility] [address] [place] [address] Dr. Awilda Bryant EO # 0.1 103/ul Normal 0.0-0.7 [facility] Comment on above: Performed By: #### C DIFPOC #### [facility] [address] [place] [address] Dr. Awilda Bryant Eosinophils/100 WBC (Bld) 1.9 % Normal 0.9-7.0 [facility] Comment on above: Performed By: #### C DIFPOC #### [facility] [address] [place] [address] Dr. Awilda Bryant Erythrocyte distribution width (RBC) [Ratio] 12.7 % Normal 11.0-15.0 [facility] Comment on above: Performed By: #### C DIFPOC #### [facility] [address] [place] [address] Dr. Awilda Bryant Hematocrit (Bld) [Volume fraction] 41.9 % Normal 36.0-48.0 [facility] Comment on above: Performed By: #### C DIFPOC #### [facility] [address] [place] [address] Dr. Awilda Bryant Hemoglobin (Bld) [Mass/Vol] 14.7 g/dL Normal 12.0-16.0 [facility] Comment on above: Performed By: #### C DIFPOC #### [facility] [address] [place] [address] Dr. Awilda Bryant IG # 0.02 10e3/ul Normal 0.00-0.03 [facility] Comment on above: Performed By: #### C DIFPOC #### [facility] [address] [place] [address] Dr. Awilda Bryant IG % 0.3 % Normal 0.0-0.5 [facility] Comment on above: Performed By: #### C DIFPOC #### [facility] [address] [place] [address] Dr. Awilda Bryant LYMPH # 2.1 103/ul Normal 1.2-3.8 [facility] Comment on above: Performed By: #### C DIFPOC #### [facility] [address] [place] [address] Dr. Awilda Bryant Lymphocytes/100 WBC (Bld) 31.4 % Normal 20.5-60.0 [facility] Comment on above: Performed By: #### C DIFPOC #### [facility] [address] [address] [address] Awilda Bryant MANUAL DIFF REQ NO Normal [facility] Comment on above: Performed By: #### C DIFPOC #### [facility] [address] [place] [address] Dr. Awilda Bryant MCH (RBC) [Entitic mass] 29.7 pg Normal 26.7-34.0 [facility] Comment on above: Performed By: #### C DIFPOC #### [facility] [address] [place] [address] Dr. Awilda Bryant MCHC (RBC) [Mass/Vol] 35.1 g/dL Normal 29.9-35.2 [facility] Comment on above: Performed By: #### C DIFPOC #### [facility] [address] [place] [address] Dr. Awilda Bryant MCV (RBC) [Entitic vol] 84.6 fL Normal 81.0-99.0 [facility] Comment on above: Performed By: #### C DIFPOC #### [facility] [address] [place] [address] Dr. Awilda Byrant MONO # 0.5 103/ul Normal 0.3-0.8 [facility] Comment on above: Performed By: #### C DIFPOC #### [facility] [address] [place] [address] Dr. Awilda Bryant Monocytes/100 WBC (Bld) 7.5 % Normal 1.7-12.0 [facility] Comment on above: Performed By: #### C DIFPOC #### [facility] [address] [place] [address] Dr. Awilda Bryant NEUT # 4.0 103/ul Normal 1.4-6.5 [facility] Comment on above: Performed By: #### C DIFPOC #### [facility] [address] [place] [address] Dr. Awilda Bryant Neutrophils/100 WBC (Bld) 58.2 % Normal 43.0-75.0 [facility] Comment on above: Performed By: #### C DIFPOC #### [facility] [address] [place] [address] Dr. Awilda Bryant Platelet mean volume (Bld) [Entitic vol] 9.8 fL Normal 9.5-13.5 [facility] Comment on above: Performed By: #### C DIFPOC #### [facility] [address] [place] [address] Dr. Awilda Bryant PLT 344 103/ul Normal 150-450 [facility] Comment on above: Performed By: #### C DIFPOC #### [facility] [address] [place] [address] Dr. Awilda Bryant RBC 4.95 106/ul Normal 4.20-5.40 [facility] Comment on above: Performed By: #### C DIFPOC #### [facility] [address] [place] [address] Dr. Awilda Bryant WBC 6.8 103/ul Normal 4.0-11.0 [facility] Comment on above: Performed By: #### C DIFPOC #### [facility] [address] [place] [address] Dr. Awilda Bryant LIPID PROFILEon 07-18-2022 CHOL-HDL RATIO NORM SEE BELOW Normal [facility] Comment on above: Result Comment: 3.3 - 4.4 LOW RISK 4.4 - 7.1 AVERAGE RISK 7.1 - 11.0 MODERATE RISK >11.0 HIGH RISK Performed By: #### T POAB #### [facility] [address] [place] [address] Dr. Awilda Bryant Cholesterol [Mass/Vol] 159 mg/dL Normal <=200 [facility] Comment on above: Performed By: #### T POAB #### [facility] [address] [place] [address] Dr. Awilda Bryant Cholesterol in HDL [Mass/Vol] 40 mg/dL Normal 40-60 [facility] Comment on above: Performed By: #### T POAB #### [facility] [address] [place] [address] Dr. Awilda Bryant Cholesterol in LDL [Mass/Vol] 102.2 mg/dL Normal [facility] Comment on above: Performed By: #### T POAB #### [facility] [address] [address] [address] Awilda Bryant Cholesterol.total/C holesterol in HDL [Mass ratio] 4.0 {ratio} Normal [facility] Comment on above: Performed By: #### T POAB #### [facility] [address] [address] [address] Awilda Bryant HDL NORMAL > or = 60 mg/dl - LO W CARDIOVASCULAR RISK <40 mg/dl - HIGH CARDIOVASCULAR RISK Normal [facility] Comment on above: Performed By: #### T POAB #### [facility] [address] [address] [address] Awilda Bryant LDL CALC NORMAL SEE BELOW Normal [facility] Comment on above: Result Comment: <100 mg/dl OPTIMAL 100 - 129 mg/dl NEAR OR ABOVE OPTIMAL 130 - 159 mg/dl BORDERLINE HIGH 160 - 189 mg/dl HIGH >190 mg/dl VERY HIGH Performed By: #### T POAB #### [facility] [address] [address] [address] Awilda Bryant Triglyceride [Mass/Vol] 84 mg/dL Normal <=150 [facility] Comment on above: Performed By: #### T POAB #### [facility] [address] [address] [address] Awilda Bryant VLDL CALC 16.8 mg/dL Normal [facility] Comment on above: Performed By: #### T POAB #### [facility] [address] [address] [address] Awilda Bryant PROF 14(COMP METB)on 023 Albumin [Mass/Vol] 4.0 g/dL Normal 3.4-5.0 [facility] Comment on above: Performed By: #### C MP, TSH, LIPID #### [facility] [address] [address] [address] Awilda Bryant Albumin/Globulin [Mass ratio] 1.0 {ratio} Normal [facility] Comment on above: Performed By: #### C MP, TSH, LIPID #### [facility] [address] [address] [address] Awilda Bryant ALP [Catalytic activity/Vol] 62 U/L Normal 46-116 [facility] Comment on above: Performed By: #### C MP, TSH, LIPID #### [facility] [address] [address] [address] Awilda Bryant ALT [Catalytic activity/Vol] 21 U/L Normal 14-59 [facility] Comment on above: Performed By: #### C MP, TSH, LIPID #### [facility] [address] [address] [address] Awilda Bryant Anion gap [Moles/Vol] 11.9 mmol/L Normal [facility] Comment on above: Performed By: #### C MP, TSH, LIPID #### [facility] [address] [address] [address] Awilda Bryant AST [Catalytic activity/Vol] 23 U/L Normal 15-37 [facility] Comment on above: Performed By: #### C MP, TSH, LIPID #### [facility] [address] [address] [address] Awilda Bryant Bilirubin [Mass/Vol] 0.6 mg/dL Normal 0.2-1.0 [facility] Comment on above: Performed By: #### C MP, TSH, LIPID #### [facility] [address] [address] [address] Awilda Bryant Calcium [Mass/Vol] 8.8 mg/dL Normal 8.5-10.1 [facility] Comment on above: Performed By: #### C MP, TSH, LIPID #### [facility] [address] [address] [address] Awilda Bryant Chloride [Moles/Vol] 102 mmol/L Normal 98-107 [facility] Comment on above: Performed By: #### C MP, TSH, LIPID #### [facility] [address] [address] [address] Awilda Bryant CO2 [Moles/Vol] 27.5 mmol/L Normal 21.0-32.0 [facility] Comment on above: Performed By: #### C MP, TSH, LIPID #### [facility] [address] [place] [address] Dr. Awilda Bryant Creatinine [Mass/Vol] 0.60 mg/dL Normal 0.55-1.02 [facility] Comment on above: Performed By: #### C MP, TSH, LIPID #### [facility] [address] [address] [address] Awilda Bryant EGFR-AF LIBYAN >60 Normal >=60 [facility] Comment on above: Performed By: #### C MP, TSH, LIPID #### [facility] [address] [place] [address] Dr. Awilda Bryant EGFR-NON AF LIBYAN >60 Normal >=60 [facility] Comment on above: Performed By: #### C MP, TSH, LIPID #### [facility] [address] [place] [address] Dr. Awilda Bryant Globulin (S) [Mass/Vol] 3.9 g/dL Normal [facility] Comment on above: Performed By: #### C MP, TSH, LIPID #### [facility] [address] [place] [address] Dr. Awilda Bryant Glucose [Mass/Vol] 96 mg/dL Normal 74-106 [facility] Comment on above: Performed By: #### C MP, TSH, LIPID #### [facility] [address] [place] [address] Dr. Awilda Bryant Potassium [Moles/Vol] 3.4 mmol/L Critically low 3.5-5.1 [facility] Comment on above: Performed By: #### C MP, TSH, LIPID #### [facility] [address] [place] [address] Dr. Awilda Bryant Protein [Mass/Vol] 7.9 g/dL Normal 6.4-8.2 [facility] Comment on above: Performed By: #### C MP, TSH, LIPID #### [facility] [address] [place] [address] Dr. Awilda Bryant Sodium [Moles/Vol] 138 mmol/L Normal 136-145 [facility] Comment on above: Performed By: #### C MP, TSH, LIPID #### [facility] [address] [place] [address] Dr. Awilda Bryant Urea nitrogen [Mass/Vol] 15.0 mg/dL Normal 7.0-18.0 [facility] Comment on above: Performed By: #### C MP, TSH, LIPID #### [facility] [address] [place] [address] Dr. Awilda Bryant Urea nitrogen/Creatinine [Mass ratio] 25.0 mg/mg Normal [facility] Comment on above: Performed By: #### C MP, TSH, LIPID #### [facility] [address] [place] [address] Dr. Awilda Bryant TSHon 07-18-2022 TSH 1.349 uIU/mL Normal 0.358-3.740 [facility] Comment on above: Performed By: #### T POAB #### [facility] [address] [place] [address] Dr. Awilda Bryant UA RANDOM W/MICROSCOPICon BACTERIA NONE SEEN Normal NONE SEEN [facility] Comment on above: Performed By: #### U AMIC #### [facility] [address] [place] [address] Dr. Awilda Bryant Bilirubin Ql (U) Negative Normal NEGATIVE [facility] Comment on above: Performed By: #### U AMIC #### [facility] [address] [place] [address] Dr. Awilda Bryant CAST NONE SEEN Normal NONE SEEN [facility] Comment on above: Performed By: #### U AMIC #### [facility] [address] [place] [address] Dr. Awilda Bryant Clarity (U) CLEAR Normal CLEAR [facility] Comment on above: Performed By: #### U AMIC #### [facility] [address] [place] [address] Dr. Awilda Bryant Color (U) YELLOW Normal YELLOW [facility] Comment on above: Performed By: #### U AMIC #### [facility] [address] [address] [address] Awilda Bryant Crystals LM Nom (Urine sed) NONE SEEN Normal NONE SEEN [facility] Comment on above: Performed By: #### U AMIC #### [facility] [address] [address] [address] Awilda Bryant Epithelial cells LM Ql (Urine sed) NONE SEEN Normal NONE SEEN /RARE [facility] Comment on above: Performed By: #### U AMIC #### [facility] [address] [address] [address] Awilda Bryant Glucose Ql (U) Negative Normal NEGATIVE [facility] Comment on above: Performed By: #### U AMIC #### [facility] [address] [place] [address] Dr. Awilda Bryant Hemoglobin Ql (U) Negative Normal NEGATIVE [facility] Comment on above: Performed By: #### U AMIC #### [facility] [address] [address] [address] Awilda Bryant Ketones Ql (U) Negative Normal NEGATIVE [facility] Comment on above: Performed By: #### U AMIC #### [facility] [address] [address] [address] Awilda Bryant LEUKOCYTES Negative Normal NEGATIVE [facility] Comment on above: Performed By: #### U AMIC #### [facility] [address] [address] [address] Awilda Bryant MUCOUS NONE SEEN Normal NONE SEEN [facility] Comment on above: Performed By: #### U AMIC #### [facility] [address] [place] [address] Dr. Awilda Bryant Nitrite Ql (U) Negative Normal NEGATIVE [facility] Comment on above: Performed By: #### U AMIC #### [facility] [address] [place] [address] Dr. Awilda Bryant pH (U) 6.0 [pH] Normal 5-9 [facility] Comment on above: Performed By: #### U AMIC #### [facility] [address] [place] [address] Dr. Awilda Bryant RBC 0-2 Normal 0-2 [facility] Comment on above: Performed By: #### U AMIC #### [facility] [address] [place] [address] Dr. Awilda Bryant SPEC GRAVITY 1.025 Normal 1.005-<=1.025 [facility] Comment on above: Performed By: #### U AMIC #### [facility] [address] [place] [address] Dr. Awilda Bryant UA PROTEIN Negative Normal NEGATIVE/ TRACE [facility] Comment on above: Performed By: #### U AMIC #### [facility] [address] [place] [address] Dr. Awilda Bryant Urobilinogen Qn (U) 0.2 {Clarita'U}/dL Normal 0.2 - 1. 0 [facility] Comment on above: Performed By: #### U AMIC #### [facility] [address] [place] [address] Dr. Awilda Bryant WBC NONE SEEN Normal NONE SEEN [facility] Comment on above: Performed By: #### U AMIC #### [facility] [address] [place] [address] Dr. Awilda Bryant VITAMIN D 25 OHon 07-18-2022 VIT D 25-OH 26.4 ng/mL Normal [facility] Comment on above: Performed By: #### C DIFPOC #### [facility] [address] [place] [address] Dr. Awilda Bryant VIT D RANGES SEE BELOW Normal [facility] Comment on above: Result Comment: <20 ng/mL Vit D deficient 20 - <30 ng/mL Vit D insufficient 30 - 100 ng/mL Vit D sufficient >100 ng/mL Potential Toxicity Performed By: #### C DIFPOC #### [facility] [address] [place] [address] Dr. Awilda Bryant DHEA-SULFATEon 06-28-2022 DHEA-Sulfate 79.2 ug/dL Normal 57.3-279.2 [facility] Comment on above: Performed By: #### D AUGIE #### [facility] [address] [place] [address] Dr. Awilda Bryant ESTRADIOLon 06-28-2022 Estradiol 38.9 pg/mL Normal [facility] Comment on above: Result Comment: Adul t Female: Follicular phase 12.5 - 166.0 Ovulation phase 85.8 - 498.0 Luteal phase 43.8 - 211.0 Postmenopausal <6.0 - 54.7 1st trimester 215.0 - >4300.0 Perla ECLIA methodology Performed By: #### E STRADI #### [facility] [address] [place] [address] Dr. Awilda Bryant FSHon 06-28-2022 FSH 8.9 mIU/mL Normal [facility] Comment on above: Result Comment: Adul t Female: Follicular phase 3.5 - 12.5 Ovulation phase 4.7 - 21.5 Luteal phase 1.7 - 7.7 Postmenopausal 25.8 - 134.8 Performed By: #### C DIFPOC #### [facility] [address] [place] [address] Dr. Awilda Bryant PROLACTINon 06-28-2022 Prolactin 9.9 ng/mL Normal 4.8-23.3 [facility] Comment on above: Performed By: #### P ROLAC #### [facility] [address] [place] [address] Dr. Awilda Bryant TESTOSTERONE, TOTALon 2022 Testosterone [Mass/Vol] 18 ng/dL Normal 8-60 [facility] Comment on above: Performed By: #### T POAB #### [facility] [address] [place] [address] Dr. Awilda Bryant THYROGLOBULIN ABon Thyroglobulin Antibody <1.0 Normal 0.0-0.9 [facility] Comment on above: Result Comment: Thyr oglobulin Antibody measured by [employer] Methodology Performed By: #### T HYGAB #### [facility] [address] [place] [address] Dr. Awilda Bryant THYROID PEROXIDASE ABon 03-0 -2022 Thyroid Peroxidase (TPO) Ab <9 Normal 0-34 [facility] Comment on above: Performed By: #### T POAB #### [facility] [address] [place] [address] Dr. Awilda Bryant CBC AUTO DIFFon 06-27-2022 BASO # 0.1 103/ul Normal 0.0-0.1 [facility] Comment on above: Performed By: #### T POAB #### [facility] [address] [place] [address] Dr. Awilda Bryant Basophils/100 WBC (Bld) 0.9 % Normal 0.2-2.0 [facility] Comment on above: Performed By: #### T POAB #### [facility] [address] [place] [address] Dr. Awilda Bryant EO # 0.2 103/ul Normal 0.0-0.7 [facility] Comment on above: Performed By: #### T POAB #### [facility] [address] [place] [address] Dr. Awilda Bryant Eosinophils/100 WBC (Bld) 2.7 % Normal 0.9-7.0 [facility] Comment on above: Performed By: #### T POAB #### [facility] [address] [place] [address] Dr. Awilda Bryant Erythrocyte distribution width (RBC) [Ratio] 12.6 % Normal 11.0-15.0 [facility] Comment on above: Performed By: #### T POAB #### [facility] [address] [place] [address] Dr. Awilda Bryant Hematocrit (Bld) [Volume fraction] 42.0 % Normal 36.0-48.0 [facility] Comment on above: Performed By: #### T POAB #### [facility] [address] [place] [address] Dr. Awilda Bryant Hemoglobin (Bld) [Mass/Vol] 14.6 g/dL Normal 12.0-16.0 [facility] Comment on above: Performed By: #### T POAB #### [facility] [address] [place] [address] Dr. Awilda Bryant IG # 0.02 10e3/ul Normal 0.00-0.03 [facility] Comment on above: Performed By: #### T POAB #### [facility] [address] [place] [address] Dr. Awilda Bryant IG % 0.3 % Normal 0.0-0.5 [facility] Comment on above: Performed By: #### T POAB #### [facility] [address] [place] [address] Dr. Awilda Bryant LYMPH # 2.1 103/ul Normal 1.2-3.8 [facility] Comment on above: Performed By: #### T POAB #### [facility] [address] [place] [address] Dr. Awilda Bryant Lymphocytes/100 WBC (Bld) 31.2 % Normal 20.5-60.0 [facility] Comment on above: Performed By: #### T POAB #### [facility] [address] [place] [address] Dr. Awilda Bryant MANUAL DIFF REQ NO Normal [facility] Comment on above: Performed By: #### T POAB #### [facility] [address] [place] [address] Dr. Awilda Bryant MCH (RBC) [Entitic mass] 29.1 pg Normal 26.7-34.0 [facility] Comment on above: Performed By: #### T POAB #### [facility] [address] [place] [address] Dr. Awilda Bryant MCHC (RBC) [Mass/Vol] 34.8 g/dL Normal 29.9-35.2 [facility] Comment on above: Performed By: #### T POAB #### [facility] [address] [place] [address] Dr. Awilda Bryant MCV (RBC) [Entitic vol] 83.8 fL Normal 81.0-99.0 [facility] Comment on above: Performed By: #### T POAB #### [facility] [address] [place] [address] Dr. Awilda Bryant MONO # 0.5 103/ul Normal 0.3-0.8 [facility] Comment on above: Performed By: #### T POAB #### [facility] [address] [place] [address] Dr. Awilda Bryant Monocytes/100 WBC (Bld) 6.8 % Normal 1.7-12.0 [facility] Comment on above: Performed By: #### T POAB #### [facility] [address] [place] [address] Dr. Awilda Bryant NEUT # 3.9 103/ul Normal 1.4-6.5 [facility] Comment on above: Performed By: #### T POAB #### [facility] [address] [place] [address] Dr. Awilda Bryant Neutrophils/100 WBC (Bld) 58.1 % Normal 43.0-75.0 [facility] Comment on above: Performed By: #### T POAB #### [facility] [address] [place] [address] Dr. Awilda Bryant Platelet mean volume (Bld) [Entitic vol] 9.2 fL Critically low 9.5-13.5 [facility] Comment on above: Performed By: #### T POAB #### [facility] [address] [place] [address] Dr. Awilda Bryant PLT 412 103/ul Normal 150-450 [facility] Comment on above: Performed By: #### T POAB #### [facility] [address] [place] [address] Dr. Awilda Bryant RBC 5.01 106/ul Normal 4.20-5.40 [facility] Comment on above: Performed By: #### T POAB #### [facility] [address] [place] [address] Dr. Awilda Bryant WBC 6.7 103/ul Normal 4.0-11.0 [facility] Comment on above: Performed By: #### T POAB #### [facility] [address] [place] [address] Dr. Awilda Bryant FREE T3on 06-27-2022 FREE T3 2.68 pg/mlL Normal 2.18-3.98 [facility] Comment on above: Performed By: #### T POAB #### [facility] [address] [address] [address] Awilda Bryant FREE T4on 06-27-2022 Free T4 [Mass/Vol] 1.24 ng/dL Normal 0.76-1.46 [facility] Comment on above: Performed By: #### C DIFPOC #### [facility] [address] [place] [address] Dr. Awilda Bryant LIPID PROFILEon 06-27-2022 CHOL-HDL RATIO NORM SEE BELOW Normal [facility] Comment on above: Result Comment: 3.3 - 4.4 LOW RISK 4.4 - 7.1 AVERAGE RISK 7.1 - 11.0 MODERATE RISK >11.0 HIGH RISK Performed By: #### T POAB #### [facility] [address] [place] [address] Dr. Awilda Bryant Cholesterol [Mass/Vol] 179 mg/dL Normal <=200 [facility] Comment on above: Performed By: #### T POAB #### [facility] [address] [place] [address] Dr. Awilda Bryant Cholesterol in HDL [Mass/Vol] 44 mg/dL Normal 40-60 [facility] Comment on above: Performed By: #### T POAB #### [facility] [address] [place] [address] Dr. Awilda Bryant Cholesterol in LDL [Mass/Vol] 111.8 mg/dL Normal [facility] Comment on above: Performed By: #### T POAB #### [facility] [address] [place] [address] Dr. Awilda Bryant Cholesterol.total/C holesterol in HDL [Mass ratio] 4.1 {ratio} Normal [facility] Comment on above: Performed By: #### T POAB #### [facility] [address] [place] [address] Dr. Awilda Bryant HDL NORMAL > or = 60 mg/dl - LO W CARDIOVASCULAR RISK <40 mg/dl - HIGH CARDIOVASCULAR RISK Normal [facility] Comment on above: Performed By: #### T POAB #### [facility] [address] [address] [address] Awilda Bryant LDL CALC NORMAL SEE BELOW Normal [facility] Comment on above: Result Comment: <100 mg/dl OPTIMAL 100 - 129 mg/dl NEAR OR ABOVE OPTIMAL 130 - 159 mg/dl BORDERLINE HIGH 160 - 189 mg/dl HIGH >190 mg/dl VERY HIGH Performed By: #### T POAB #### [facility] [address] [place] [address] Dr. Awilda Bryant Triglyceride [Mass/Vol] 116 mg/dL Normal <=150 [facility] Comment on above: Performed By: #### T POAB #### [facility] [address] [place] [address] Dr. Awilda Bryant VLDL CALC 23.2 mg/dL Normal [facility] Comment on above: Performed By: #### T POAB #### [facility] [address] [place] [address] Dr. Awilda Bryant PROF 14(COMP METB)on 023 Albumin [Mass/Vol] 3.9 g/dL Normal 3.4-5.0 [facility] Comment on above: Performed By: #### T POAB #### [facility] [address] [place] [address] Dr. Awilda Bryant Albumin/Globulin [Mass ratio] 1.1 {ratio} Normal [facility] Comment on above: Performed By: #### T POAB #### [facility] [address] [place] [address] Dr. Awilda Bryant ALP [Catalytic activity/Vol] 70 U/L Normal 46-116 [facility] Comment on above: Performed By: #### T POAB #### [facility] [address] [place] [address] Dr. Awilda Bryant ALT [Catalytic activity/Vol] 22 U/L Normal 14-59 [facility] Comment on above: Performed By: #### T POAB #### [facility] [address] [place] [address] Dr. Awilda Bryant Anion gap [Moles/Vol] 11.5 mmol/L Normal [facility] Comment on above: Performed By: #### T POAB #### [facility] [address] [address] [address] Awilda Bryant AST [Catalytic activity/Vol] 16 U/L Normal 15-37 [facility] Comment on above: Performed By: #### T POAB #### [facility] [address] [address] [address] Awilda Bryant Bilirubin [Mass/Vol] 0.5 mg/dL Normal 0.2-1.0 [facility] Comment on above: Performed By: #### T POAB #### [facility] [address] [address] [address] Awilda Bryant Calcium [Mass/Vol] 9.3 mg/dL Normal 8.5-10.1 [facility] Comment on above: Performed By: #### T POAB #### [facility] [address] [address] [address] Awilda Bryant Chloride [Moles/Vol] 104 mmol/L Normal 98-107 [facility] Comment on above: Performed By: #### T POAB #### [facility] [address] [address] [address] Awilda Bryant CO2 [Moles/Vol] 28.3 mmol/L Normal 21.0-32.0 [facility] Comment on above: Performed By: #### T POAB #### [facility] [address] [address] [address] Awilda Bryant Creatinine [Mass/Vol] 0.52 mg/dL Critically low 0.55-1.02 [facility] Comment on above: Performed By: #### T POAB #### [facility] [address] [address] [address] Awilda Bryant EGFR-AF LIBYAN >60 Normal >=60 [facility] Comment on above: Performed By: #### T POAB #### [facility] [address] [address] [address] Awilda Bryant EGFR-NON AF LIBYAN >60 Normal >=60 [facility] Comment on above: Performed By: #### T POAB #### [facility] [address] [address] [address] Awilda Bryant Globulin (S) [Mass/Vol] 3.6 g/dL Normal [facility] Comment on above: Performed By: #### T POAB #### [facility] [address] [address] [address] Awilda Bryant Glucose [Mass/Vol] 105 mg/dL Normal 74-106 [facility] Comment on above: Performed By: #### T POAB #### [facility] [address] [place] [address] Dr. Awilda Bryant Potassium [Moles/Vol] 3.8 mmol/L Normal 3.5-5.1 [facility] Comment on above: Performed By: #### T POAB #### [facility] [address] [place] [address] Dr. Awilda Bryant Protein [Mass/Vol] 7.5 g/dL Normal 6.4-8.2 [facility] Comment on above: Performed By: #### T POAB #### [facility] [address] [place] [address] Dr. Awilda Bryant Sodium [Moles/Vol] 140 mmol/L Normal 136-145 [facility] Comment on above: Performed By: #### T POAB #### [facility] [address] [place] [address] Dr. Awilda Bryant Urea nitrogen [Mass/Vol] 16.0 mg/dL Normal 7.0-18.0 [facility] Comment on above: Performed By: #### T POAB #### [facility] [address] [place] [address] Dr. Awilda Bryant Urea nitrogen/Creatinine [Mass ratio] 30.8 mg/mg Normal [facility] Comment on above: Performed By: #### T POAB #### [facility] [address] [place] [address] Dr. Awilda Bryant TSHon 06-27-2022 TSH 1.228 uIU/mL Normal 0.358-3.740 [facility] Comment on above: Performed By: #### T POAB #### [facility] [address] [place] [address] Dr. Awilda Bryant VITAMIN B12on 06-27-2022 Cobalamin (Vitamin B12) [Mass/Vol] 323.0 pg/mL Normal 193.0-986.0 [facility] Comment on above: Performed By: #### C DIFPOC #### [facility] [address] [place] [address] Dr. Awilda Bryant VITAMIN D 25 OHon 06-27-2022 VIT D 25-OH 26.9 ng/mL Normal [facility] Comment on above: Performed By: #### T POAB #### [facility] [address] [place] [address] Dr. Awilda Bryant VIT D RANGES SEE BELOW Normal [facility] Comment on above: Result Comment: <20 ng/mL Vit D deficient 20 - <30 ng/mL Vit D insufficient 30 - 100 ng/mL Vit D sufficient >100 ng/mL Potential Toxicity Performed By: #### T POAB #### [facility] [address] [place] [address] Dr. Awilda Bryant PAP ACOG PANEL 2: 30 to 65on 11-13-2021 . . Normal [facility] Comment on above: Result Comment: Perf ormed at: WB Performed By: #### [id number] #### [facility] [address] [place] [address] Dr. Awilda Bryant Age Gdln ACOG Testing 30-65 Normal [facility] Comment on above: Performed By: #### [id number] #### [facility] [address] [place] [address] Dr. Awilda Bryant DIAGNOSIS: Comment Normal [facility] Comment on above: Result Comment: NEGA TIVE FOR INTRAEPITHELIAL LESION OR MALIGNANCY. Performed at: [facility] Performed By: #### [id number] #### [facility] [address] [place] [address] Dr. Awilda Bryant HPV Aptima Negative Normal Negative [facility] Comment on above: Result Comment: This nucleic acid amplification test detects fourteen high-risk HPV types (16,18,31,33,35,39,45,51,52,56,58,59,66,68) without differentiation. Performed at: =G Performed By: #### [id number] #### [facility] [address] [place] [address] Dr. Awilda Bryant Methodology: Comment Normal [facility] Comment on above: Result Comment: This liquid based ThinPrep(R) pap test was screened with the use of an image guided system. Performed at: WB Performed By: #### [id number] #### [facility] [address] [place] [address] Dr. Awilda Bryant Note: Comment Normal [facility] Comment on above: Result Comment: The Pap smear is a screening test designed to aid in the detection of premalignant and malignant conditions of the uterine cervix. It is not a diagnostic procedure and should not be used as the sole means of detecting cervical cancer. Both false-positive and false-negative reports do occur. . Performed at: WB Performed By: #### [id number] #### [facility] [address] [place] [address] Dr. Awilda Bryant Performed by: Comment Normal [facility] Comment on above: Result Comment: Isi Shook, Cotton Wringer (ASCP) Performed at: WB Performed By: #### [id number] #### [facility] [address] [place] [address] Dr. Awilda Bryant Specimen adequacy: Comment Normal [facility] Comment on above: Result Comment: Sati sfactory for evaluation. Endocervical and/or squamous metaplastic cells (endocervical component) are present. Performed at: WB Performed By: #### [id number] #### [facility] [address] [place] [address] Dr. Awilda Bryant Vital Signs Date Time Vital Sign Value Performing Clinician Facility 01-13-2025 11:41-0400 Body temperature 97.8 [degF] Hayley Lemus NP-C Work Phone: [facility] 01-13-2025 11:41-0400 Body weight 87.08 kg Hayley Lemus [employer] SAL[employer] REPRESENTATIVE-C Work Phone: [facility] 01-13-2025 11:41-0400 Diastolic blood pressure 94 mm[Hg] Hayley Aichholz [employer] SAL[employer] REPRESENTATIVE-C Work Phone: [facility] 01-13-2025 11:41-0400 Heart rate 80 /min Hayley Aichholz [employer] SAL[employer] REPRESENTATIVE-C Work Phone: [facility] 01-13-2025 11:41-0400 Respiratory rate 16 /min Hayley Aichholz [employer] SALES REPRESENTATIVE-C Work Phone: [facility] 01-13-2025 11:41-0400 SaO2% (BldA) [Mass fraction] 98 % Hayley Aichholz [employer] SAL[employer] REPRESENTATIVE-C Work Phone: [facility] 01-13-2025 11:41-0400 Systolic blood pressure 138 mm[Hg] Hayley Aichholz [employer] SALES REPRESENTATIVE-C Work Phone: [facility] 12-17-2023 14:04-0400 Body height 157.5 cm Hayley Aichholz [employer] SAL[employer] REPRESENTATIVE Work Phone: [facility] 12-17-2023 14:04-0400 Body mass index (BMI) [Ratio] 35.08 kg/m2 Hayley Aichholz [employer] SAL[employer] REPRESENTATIVE Work Phone: [facility] 12-17-2023 14:04-0400 Body temperature 98.01 [degF] Hayley Aichholz [employer] SALES REPRESENTATIVE Work Phone: [facility] 12-17-2023 14:04-0400 Body weight 87 kg Hayley Aichholz [employer] SALES REPRESENTATIVE Work Phone: [facility] 12-17-2023 14:04-0400 Diastolic blood pressure 92 mm[Hg] Hayley Aichholz [employer] SALES REPRESENTATIVE Work Phone: [facility] 12-17-2023 14:04-0400 Heart rate 78 /min Hayley Aichholz [employer] SALES REPRESENTATIVE Work Phone: [facility] 12-17-2023 14:04-0400 Respiratory rate 18 /min Hayley Lemus [employer] SAL[employer] REPRESENTATIVE Work Phone: [facility] 12-17-2023 14:04-0400 SaO2% (BldA) [Mass fraction] 98 % Hayley Lemus SMALL BUSINESS SALES REPRESENTATIVE Work Phone: [facility] 12-17-2023 14:04-0400 Systolic blood pressure 128 mm[Hg] Hayley Lemus SMALL BUSINESS SALES REPRESENTATIVE Work Phone: [facility] Healthcare Encounters Encounter Date Encounter Type Care Provider Facility Start: 01-13-2025 End: 01-13-2025 ambulatory Hayley Lemus SMALL BUSINESS SALES REPRESENTATIVE-C Work Phone: [facility] Work Phone: Start: 01-13-2025 End: 01-13-2025 Patient encounter procedure Hayley Lemus SMALL BUSINESS SALES REPRESENTATIVE-C -[facility] Work Phone: Start: 02-09-2024 End: 02-09-2024 Refill Hayley Lemus SMALL BUSINESS SALES REPRESENTATIVE Work Phone: [facility] Comment on above: Essential (primary) hypertension (CMS/HCC) Start: 12-17-2023 End: 12-17-2023 Bamboo flowsheet Hayley Lemus SMALL BUSINESS SALES REPRESENTATIVE Work Phone: [facility] Start: 12-17-2023 End: 12-17-2023 Bamboo flowsheet Hayley Lemus SMALL BUSINESS SALES REPRESENTATIVE Work Phone: [facility] Start: 12-17-2023 End: 12-17-2023 Office outpatient visit 25 minutes Hayley Lemus SMALL BUSINESS SALES REPRESENTATIVE Work Phone: [facility] Comment on above: Essential hypertensi on (CMS/HCC) (Primary Dx); Morbid obesity (CMS/HCC); Pain in left lumbar region of back; Essential (primary) hypertension (CMS/HCC) Start: 12-17-2023 End: 12-17-2023 ambulatory HAYLEY KYARA Not Available Start: 11-04-2023 End: 11-04-2023 ambulatory HAYLEY KENNEDYANGELOTrina Not Available Start: 10-08-2023 End: 10-08-2023 ambulatory BRE LAWSONO Not Available Start: 09-24-2022 End: 09-24-[address] BENITO BURTON . Facility:[facility] Start: 09-10-2022 End: 09-11-2022 ambulatory MIKE LEMUS Facility:[facility] Start: 09-06-2022 End: 09-07-2022 ambulatory UMBRELLA CUTTER HAYLEY LEMUS Facility:[facility] Start: 07-18-2022 End: 07-19-2022 ambulatory MIKE LEMUS Facility:[facility] Start: 06-27-2022 End: 06-28-[address] DOCTOR PUENTE Facility:[facility] Start: 11-09-2021 End: 11-09-[address] BENITO BURTON . Facility: Plan of Treatment Date Care Activity Detail Author Start: 02-16-2024 End: 02-16-2024 Patient encounter procedure 02/16/2024 6:40 PM EDT Office Visit [facility] [address] [place] [address] Hayley Lemus, DIANE [address] [place] [phone] [facility] Start: 12-17-2023 End: 12-17-2023 Patient encounter procedure 12/17/2023 2:00 PM EDT Office Visit [facility] [address] [place] [address] Hayley Lemus, DIANE [address] [place] [address] Arrived [facility] Comment on above: Arrived Start: 2014 Screening for malign ant neoplasm of cervix [facility] Start: 2005 Screening for malign ant neoplasm of cervix Pap Smear [facility] Comprehensive metabo lic 2000 panel - Serum or Plasma [facility] Insulin [Units/volum e] in Serum or Plasma [facility] Payers Date Payer Category Payer Medicaid [facility] MEDICA[facility] MEDICAID [id number] 2015-Present [address] [place] [address] [id number] 2015 Medicaid (Managed Care) [facility] MEDICA[facility] [id number] 1984 Unknown [id number] 593 1984 Unknown [id number]. 593 1984 Unknown [id number]. 593 1984 Unknown [id number] [id number]. 593 1984 Unknown [id number] [id number]. 593 1984 Unknown [id number] [id number]. 593 1984 Unknown [id number] [id number]. 1259 1984 Unknown [id number] [id number]. 1259 1984 Unknown [id number] [id number]. 1259 1959 Unknown [id number] Social History Date Type Detail Facility [facility]: [facility] Start: 11-04-2023 Tobacco use and exposure Smokeless tobacco non-user [facility] Start: 11-04-2023 End: 12-17-2023 Alcoholic beverage intake Lifetime non-drinker (finding) [facility] Start: 11-04-2023 End: 12-17-2023 History of Social function [facility] Start: 11-04-2023 End: 12-17-2023 Tobacco use panel [facility] Start: 11-04-2023 Alcohol Comment caffine: 1 1/2 cups of coffee weekly [facility] Start: 1984 Sex assigned at Not on file [facility] Tobacco smoking stat [facility] Unknown if ever smoked [facility] Work Phone: Sex Female (finding) [facility] Start: 1985 Sex Assigned At Female F [facility] History of Present illness Narrative 12-17-2023 Hayley Lemus NP - 12/17/2023 2:36 PM Asif Lemus NP - 12/17/2023 2:27 PM EDTHLATASHA LOPEZ - 12/17/2023 2:00 PM Asif Lemus NP - 12/17/2023 2:00 PM EDT Note Date & Type Note Facility 12-17-2023 History of Presen t illness Narrative Associated Problem(s): Pain in left lumbar region of back Will trial PT Associated Problem(s): Essential hypertension (CMS/HCC) Continue with losartan Remain off hydrochlorothiazide Fu in 3 months Pt is still having pain in her back that comes and goes that has been an issue since feb. Images from the original note were not included. Alix Rodriguez is a 38 y.o. female presents with chief complaint of No chief complaint on file. HPI: Hypertension This is a chronic problem. The current episode started more than 1 year ago. The problem is unchanged. The problem is controlled. Pertinent negatives include no anxiety, chest pain, headaches, orthopnea, palpitations, peripheral edema, PND or shortness of breath. There are no associated agents to hypertension. Risk factors for coronary artery disease include obesity. Past treatments include angiotensin blockers. The current treatment provides significant improvement. There are no compliance problems. Back Pain This is a chronic problem. The current episode started more than 1 month ago. The problem occurs intermittently. The problem has been waxing and waning since onset. The pain is present in the lumbar spine. The quality of the pain is described as stabbing (throbbing). The pain does not radiate. The pain is at a severity of 5/10. The pain is mild. Exacerbated by: nothing. Pertinent negatives include no abdominal pain, bladder incontinence, bowel incontinence, chest pain, dysuria, fever, headaches, leg pain, numbness, paresthesias, tingling, weakness or weight loss. Risk factors include obesity. Treatments tried: tylenol prn, helps. The treatment provided moderate relief. SUBJECTIVE: MEDICATIONS: Current Outpatient Medications Medication Instructions busPIRone (BUSPAR) 5 mg, Oral, 2 times daily losartan (COZAAR) 50 mg, Oral, Daily ALLERGIES: Allergies Allergen Reactions Penicillin G Other Reaction(s): Unknown REVIEW OF SYMPTOMS: Review of Systems Constitutional: Negative for appetite change, chills, fever and weight loss. HENT: Negative for congestion, ear pain and sore throat. Eyes: Negative for pain, discharge, redness and visual disturbance. Respiratory: Negative for cough, shortness of breath and wheezing. Cardiovascular: Negative for chest pain, palpitations, orthopnea, leg swelling and PND. Gastrointestinal: Negative for abdominal pain, blood in stool, bowel incontinence, constipation, diarrhea, nausea and vomiting. Genitourinary: Negative for bladder incontinence, difficulty urinating, dysuria and frequency. Musculoskeletal: Positive for back pain. Negative for arthralgias, joint swelling and myalgias. Skin: Negative for rash and wound. Neurological: Negative for dizziness, tingling, tremors, seizures, syncope, weakness, numbness, headaches and paresthesias. Psychiatric/Behavioral: Negative for behavioral problems, self-injury and suicidal ideas. The patient is not nervous/anxious. Hematological: Does not bruise/bleed easily. Endocrine: Negative for polydipsia, polyphagia and polyuria. Allergic/Immunologic: Negative for environmental allergies and food allergies. PAST MEDICAL HISTORY No past medical history on file. No past surgical history on file. family history is not on file. OBJECTIVE: Visit Vitals Resp 18 Ht 5' 2 Wt 191 lb 12.8 oz BMI 35.08 kg/m OB Status Having periods Smoking Status Never BSA 1.95 m Physical Exam Vitals and nursing note reviewed. Constitutional: General: She is not in acute distress. Appearance: Normal appearance. HENT: Head: Normocephalic and atraumatic. Right Ear: External ear normal. Left Ear: External ear normal. Nose: Nose normal. Mouth/Throat: Mouth: Mucous membranes are moist. Eyes: Extraocular Movements: Extraocular movements intact. Conjunctiva/sclera: Conjunctivae normal. Cardiovascular: Rate and Rhythm: Normal rate and regular rhythm. Pulses: Normal pulses. Heart sounds: Normal heart sounds. Pulmonary: Effort: Pulmonary effort is normal. Breath sounds: Normal breath sounds. Abdominal: General: Bowel sounds are normal. There is no distension. Palpations: Abdomen is soft. There is no mass. Tenderness: There is no abdominal tenderness. Musculoskeletal: Cervical back: Normal range of motion and neck supple. Right lower leg: No edema. Left lower leg: No edema. Comments: Tenderness to palpation of the lumbar and left para lumbar region -SLR X2, DTR's 2+ bilat patellar/achilles MMT 5/5 bilat Near full lumbar ROM Skin: General: Skin is warm and dry. Capillary Refill: Capillary refill takes 2 to 3 seconds. Findings: No rash. Neurological: General: No focal deficit present. Mental Status: She is alert and oriented to person, place, and time. Psychiatric: Mood and Affect: Mood normal. Behavior: Behavior normal. Thought Content: Thought content normal. Judgment: Judgment normal. ASSESSMENT AND PLAN: No follow-ups on file. Problem List Items Addressed This Visit Essential hypertension (CMS/HCC) - Primary Continue with losartan Remain off hydrochlorothiazide Fu in 3 months Morbid obesity (CMS/HCC) Pain in left lumbar region of back Will trial PT Relevant Orders Ambulatory referral to Physical Therapy Other Visit Diagnoses Essential (primary) hypertension (CMS/HCC) Relevant Medications losartan (Cozaar) 50 MG tablet documented in this encounter [facility] Evaluation note Note Date & Type [...] hypertension documented in this encounter [facility] Evaluation note Note Date & Type Note Facility Evaluation note Diagnosis Essential hypertension (CMS/HCC)- Primary Unspecified essential hypertension Morbid obesity (CMS/HCC) Morbid obesity Pain in left lumbar region of back Essential (primary) hypertension (CMS/HCC) Unspecified essential hypertension documented in this encounter [facility] Evaluation note Note Date & Type Note Facility Evaluation note Diagnosis Onset Date Resolution Essential hypertension acute Se pt2024 11:31am Generalized anxiety disorder acute January 13, 2025 11:31am Hyperinsulinemia acute Septembe r 2024 11:31am Migraine acute December 11:31am Morbid obesity acute January 13, 2025 11:31am Obstructive sleep apnea syndrome acute January 13, 2025 11:31am [facility] Work Phone: Reason for referral (narrative) Note Date & Type Note Facility Reason for referral (narrative) No reason for referral information available [facility] Work Phone: Summary Purpose Family History No Family History Records FoundNo Family History Records Found Advance Directives Advance Directive Response Recorded Date/ Time Advance Directives No December 8:15pm Reason for Referral Specialty Diagnoses / Procedures Referred By Olesya warren Referred To Contact Physical Therapy Diagnoses Pain in left lumbar region of back Procedures [place] OFFICE/OUTPATIENT NEW HIGH MDM 60 MINUTES Hayley Lemus NP [address] [place] [address] Referral ID Status Reason Start Date Expiration Date Visits Requested Visits Authorized [id number] Pending Review Specialty Services Required 12/17/2023 06/14/2024 1 1 Chief Complaint and Reason for Visit Chief Complaint Admit Date high blood pressure/headaches January 13, 2025 11:31am Reason for Visit Admit Date Essential hypertension January 13, 2 025 11:31am Generalized anxiety disorder December 272024 11:31am Hyperinsulinemia January 13, 2025 11:31am Migraine January 13, 2025 11:31am Morbid obesity January 13, 2025 11:31am Obstructive sleep apnea syndrome Septemb er 2024 11:31am Additional Source Comments INFORMATION SOURCE (unrecogn ized section and content) DATE CREATED AUTHOR 10/04/2022 [facility] DATE CREATED AUTHOR AUTHOR'S ORGANIZ ATION 12/19/2023 [facility] EPIC Reason for Visit (unrecogniz ed section and content) Reason Comments Med Refill Care Teams (unrecognized sec tion and content) Thrasher Feeder Relationship Specialty Start Date End Date Dae Amato MD [address] [place] [address] PCP - General Family Medicine 10/23/23 Hayley Lemus NP [address] [place] [address] PCP - [facility] 10/27/23 Hayley Lemus NP [address] [place] [address] Nurse Practitioner Family Medicine 04/28/22 Thrasher Feeder Relationship Specialty Start Date End Date Dae Amato MD [address] [place] [address] PCP - General Family [place] 10/23/23 Hayley Lemus NP [address] [place] [address] PCP - [facility] 10/27/23 Hayley Lemus NP [address] [place] [address] Nurse Practitioner Family Medicine 04/28/22 Thrasher Feeder Relationship Specialty Start Date End Date Dae Amato MD [address] [place] [address] PCP - [facility] 10/23/23 Hayley Lemus NP [address] [place] [address] [facility] 10/27/23 Hayley Lemus NP [address] [place] [address] Nurse Practitioner Family Medicine 04/28/22 Team Status: Active Member Role Status Dates MARTHA Grijalva Primary Care Provider Active Team Status: Inactive Member Role Status Dates MARTHA Grijalva Primary Care Provider Active Start: January 13, 2025 End: January 13, 2025 MARTHA Grijalva Attending Provider Active Start: January 13, 2025 End: January 13, 2025 Goals (unrecognized section and content) Goals may be documented in a n alternate section FOR RECORDS PERTAINING TO PATIENTS WHO ARE [...] BE BASED ON THE PRIMARY CLINICAL RECORDS. [facility]. provides no warranty or guarantee of the accuracy or completeness of information in this document.
[2025-01-17 09:09] LABS: Hematocrit 41.2 % (36.0-48.0); Hemoglobin 14.1 g/dL (12.0-16.0); Immature Granulocytes Abs Auto 0.01 10^3/uL (0.00-0.03); Immature Granulocytes Pct Auto 0.1 % (0.0-0.5); Lymphocytes Absolute Auto 2.1 10^3/uL (1.2-3.8); Mean Corpuscular HGB Conc 34.2 g/dL (29.9-35.2); Mean Corpuscular Hemoglobin 28.8 pg (26.7-34.0); Mean Corpuscular Volume 84.3 fL (81.0-99.0); Platelet Count 345 10^3/uL (150-450); Red Blood Count 4.89 10^6/uL (4.20-5.40); White Blood Count 7.2 10^3/uL (4.0-11.0)
[2025-01-17 09:35] LABS: Alanine Aminotransferase 17 U/L (14-59); Albumin Globulin Ratio 0.9; Albumin Level 3.6 g/dL (3.4-5.0); Alkaline Phosphatase 65 U/L (46-116); Anion Gap 13.2; Aspartate Amino Transferase 14 U/L (15-37); Blood Urea Nitrogen 9.0 mg/dL (7.0-18.0); Calcium 8.7 mg/dL (8.5-10.1); Carbon Dioxide 27.4 mmol/L (21.0-32.0); Chloride 102 mmol/L (98-107); Cholesterol 176 mg/dL (<=200); Estimated GFR (African America >60 (>=60 mL/min/1.73m^2); Estimated GFR (Non-African Ame >60 (>=60 mL/min/1.73m^2); Globulin 4.1 g/dL; Glucose 84 mg/dL (74-106); HDL Cholesterol 50 mg/dL (40-60); Magnesium 1.9 mg/dL (1.8-2.4); Potassium 3.6 mmol/L (3.5-5.1); Sodium 139 mmol/L (136-145); Thyroid Stimulating Hormone 1.406 uIU/mL (0.358-3.740); Total Protein 7.7 g/dL (6.4-8.2); Triglycerides 103 mg/dL (<=150); VLDL CHOLESTEROL 20.6 mg/dL
[2025-01-17 09:56] LABS: Glucose Urine UA NEGATIVE (NEGATIVE)
[2025-01-17 10:41] LABS: Cast Seen? NONE SEEN #/LPF (NONE SEEN); Crystals Seen? None Seen #/HPF (None Seen)
== END 2025-01-17 08:37 | disposition home or self-care (01) ==
LOC: LAB 08:38
PROVIDERS: PCP Nurse Practitioner; Visit Provider Nurse Practitioner
DX: F41.1 Generalized anxiety disorder (principal); I10 Essential (primary) hypertension; E66.01 Morbid (severe) obesity due to excess calories; E16.1 Other hypoglycemia; G47.33 Obstructive sleep apnea (adult) (pediatric); G43.909 Migraine, unspecified, not intractable, without status migrainosus
CPT/HCPCS: 36415; 80053; 80061; 81001; 83525; 83735; 84443; 85025

== ENCOUNTER 2025-02-24 19:16 | Outpatient (REF) | payer OTHER, SELFPAY ==
--- OUTSIDE RECORDS SUMMARY | 2023-11-07 11:45 | XMS_ITS ---
Author Organization [facility] Address [address] [place] [address] Care Team Providers Care Chief Development Officer Name Role Phone Dr. Julian Interiano Primary Care Provider REASON FOR VISIT FILLING Encounters Encounter Location Date Provider Diagnosis [facility] [address] [place] [place] [address] 11/07/2023 Julian Interiano Plan Of Treatment Next Appt Details Provider Name:Cassidy Sanderson , 04/26/2025 01:00:00 PM, [address] [place], [address], Progress Notes * LAWRENCEANÍBALOB:1985 (39 yo F)Acc No.[id number]:11/07/2023 Patient:?ALAN BRAVO :?Julian Interiano DDSDOB:1985???Age:38 Y???Sex: FemaleDate:4Phone:[phone]:[phone] [id number] Subjective: * Chief Complaints: * F ILLING * Electronic signature of Dr. Julian Interiano , [facility], [id number] on 02/24/2025 at 02:53 PM EDTSign off status: Pending * Provider: Alexi Interiano DDS Date: 0 11/07/2023 Generated for Printing/Faxing/eTransmitting on:?02/24/2025 02:53 PM EDT
--- OUTSIDE RECORDS SUMMARY | 2024-02-12 11:45 | XMS_ITS ---
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 Julian Interiano Primary Care Provider [phone] Juan Pablo Evy Abad Unavailable [phone] REASON FOR VISIT PROPHY EXAM Encounters Encounter Location Date Provider Diagnosis [facility] [address] [place] [address] 02/12/2024 Evy Abad Plan Of Treatment Next Appt Details Provider Name:Cassidy Sanderson , 04/26/2025 01:00:00 PM, [address], [place], [address], Progress Notes * LAWRENCE, NICOADRIAOB:1985 (39 yo F)Acc No.[id number]:02/12/2024 Patient:?ALAN BRAVO :?Evy AbadDOB:1985???Age:38 Y???Sex: FemaleDate:02/12/2024hone:[phone]:[address] [id number]:Dr. Julian Interiano Subjective: * Chief Complaints: * P ROPHY EXAM * Electronic signature of Evy Abad on 02/24/2025 at 02:53 PM EDTSign off status: Pending * Provider: Romeo Abad Date: Generated for Printing/Faxing/eTransmitting on:?02/24/2025 02:53 PM EDT
--- OUTSIDE RECORDS SUMMARY | 2025-02-24 15:00 | XMS_ITS | Encounter Summary ---
Author Organization [facility] Address [address] [place] [address] Care Team Providers Care Body Sander Name Role Phone Hayley Lemus PIPING DESIGNER Unavailable [phone] Dae Amato MD Primary Care Provider [phone] Hayley Lemus PIPING DESIGNER Unavailable [phone] Reason for Visit * ReasonCommentsWell Women Visit Encounter Details DateTypeDepartmentCare Team (Latest Contact Info)Efrgiznwfcv38/30/2025 3:00 PM EDTProcedure Visit [facility] [address] [place] [address] Jewels Lutz PA [address] [place] [address] Well woman exam with routine gynecological exam; Encounter for screening mammogram for malignant neoplasm of breast Social History Tobacco UseTypesPacks/DayYears UsedDateSmoking Tobacco: NeverSmokeless Tobacco: NeverAlcohol UseStandard Drinks/WeekCommentsNever0 (1 standard drink = 0.6 oz pure alcohol)caffine: 1 1/2 cups of coffee weeklyCommentsNoSex and Gender InformationValueDate RecordedSex Assigned at BirthNot on fileLegal Sex Fibucv3607/10/2022 7:06 PM EDTGender IdentityNot on fileSexual OrientationNot on filedocumented as of this encounter Progress Notes * Shantal Hill MA - 02/24/2025 3:00 PM EDT Reason for Appointment: Patient ID: Alix Rodriguez is a 39 y.o. female who presents for Well Women Visit Patient presents today for Annual Exam. MEDICATIONS Current Outpatient Medications Medication Instructions busPIRone (BUSPAR) 5 mg, Oral, 2 times daily ALLERGIES Allergies Allergen Reactions Penicillin G Other Reaction(s): Unknown PROBLEMS Active Ambulatory Problems Diagnosis Date Noted Generalized anxiety disorder 06/19/2023 Essential hypertension 11/04/2023 History of COVID-19 11/04/2023 Hyperinsulinemia 11/04/2023 Migraine 11/04/2023 Morbid obesity (CMS-HCC) 11/04/2023 Obstructive sleep apnea syndrome 11/04/2023 Pain in left lumbar region of back 12/17/2023 Resolved Ambulatory Problems Diagnosis Date Noted No Resolved Ambulatory Problems No Additional Past Medical History HISTORY PAST MEDICAL HISTORY SOCIAL HISTORY No past medical history on file. Social History Tobacco Use Smoking status: Never Smokeless tobacco: Never Vaping Use Vaping status: Never Used Substance Use Topics Alcohol use: Never Comment: caffine: 1 1/2 cups of coffee weekly Drug use: Never FAMILY HISTORY No family history on file. SURGICAL HISTORY No past surgical history on file. REVIEW OF SYSTEMS Review of Systems: Review of Systems Constitutional: Negative. HENT: Negative. Eyes: Negative. Respiratory: Negative. Cardiovascular: Negative. Gastrointestinal: Negative. Genitourinary: Negative. Musculoskeletal: Negative. Skin: Negative. Neurological: Negative. All other systems reviewed and are negative. Hematological: Negative. Endocrine: Negative. Allergic/Immunologic: Negative. OBJECTIVE Objective: Physical Exam Constitutional: Appearance: Normal appearance. She is well-developed. Genitourinary: Vulva normal. Breasts: Breasts are soft. Right: Normal. Left: Normal. Cardiovascular: Rate and Rhythm: Normal rate and regular rhythm. Pulmonary: Effort: Pulmonary effort is normal. Breath sounds: Normal breath sounds. Abdominal: General: Bowel sounds are normal. There is no distension. Palpations: Abdomen is soft. Tenderness: There is no abdominal tenderness. There is no guarding or rebound. Musculoskeletal: General: No swelling. Normal range of motion. Right lower leg: No edema. Left lower leg: No edema. Neurological: Mental Status: She is alert and oriented to person, place, and time. Skin: General: Skin is warm and dry. Psychiatric: Mood and Affect: Mood normal. Behavior: Behavior normal. Vitals and nursing note reviewed. Exam conducted with a painter sign maintenance present. Vitals: Estimated body mass index is 35.08 kg/m?? as calculated from the following: Height as of 12/17/23: 5' 2 . Weight as of 12/17/23: 191 lb 12.8 oz. BP: No LMP recorded. Assessment/Plan ICD-10-CM 1. Well woman exam with routine gynecological exam Z01.419 THIN PREP TIS PAP AND HR HPV DNA 2. Encounter for screening mammogram for malignant neoplasm of breast Z12.31 Bilateral screening mammogram Bilateral screening mammogram Annual Exam: Patient presents today for an annual exam. Patient states she is doing well and has no complaints. Pap was obtained without difficulty. Orders Placed This Encounter Procedures Bilateral screening mammogram Follow Up: Patient is to return in one year for annual unless needed otherwise. Documented by Shantal Hill MA on behalf of: Halima Yadav, MSN, YEAST TENDER-BC documented in this encounter Plan of Treatment DateTypeDepartmentCare Team (Latest Contact Info)Gcqcgfijues39/09/2026 3:00 PM ESTProcedure Visit [facility] [address] [place] [phone] Jewels Lutz PA [address] [place] [address] NameTypePriorityAssociated DiagnosesOrder ScheduleBilateral screening mammogram ImagingRoutine Encounter for screening mammogram for malignant neoplasm of breast Expected: 02/24/2025 (Approximate), Expires: 04/26/2026THIN PREP TIS PAP AND HR HPV DNAPathology and CytologyRoutine Well woman exam with routine gynecological exam Ordered: 02/24/2025documented as of this encounter Visit Diagnoses Diagnosis Well woman exam with routine gynecological exam Routine gynecological examination Encounter for screening mammogram for malignant neoplasm of breast documented in this encounter Care Teams Team MemberRelationshipSpecialtyStart DateEnd Date Dae Amato MD [facility] - [facility] Hayley Lemus NP [address] [place] [address] PCP - [facility]10/26/2410 Hayley Lemus NP Nurse PractitionerFaroslindale general hospital Medicine04/28/22documented as of this encounter
--- OUTSIDE RECORDS SUMMARY | 2025-02-24 19:22 | XMS_ITS | CCD ---
Author Organization [facility] Care Team Providers Care Mercury Cracking Tester Name Role Phone MISC, DR STOCKTON Attending Unavailable MISC, DR STOCKTON Consulting Unavailable MISC, DR STOCKTON Admitting Unavailable AICHHOLZ, TOURIST ADVISER HAYLEY Primary Care Unavailable KARASIK ., DR OLIVER Consulting Unavailabl e KARASIK ., DR OLIVER Admitting Unavailabl e AICHHOLZ, TOURIST ADVISER HAYLEY Primary Care Unavailable KARASIK ., DR OLIVER Attending Unavailabl e AICHHOLZ, TOURIST ADVISER HAYLEY Admitting Unavailable AICHHOLZ, TOURIST ADVISER HAYLEY Attending Unavailable AICHHOLZ, TOURIST ADVISER HAYLEY Primary Care Unavailable KARASIK ., DR OLIVER Admitting Unavailabl e AICHHOLZ, TOURIST ADVISER HAYLEY Primary Care Unavailable KARASIK ., DR OLIVER Attending Unavailabl e AICHHOLZ, TOURIST ADVISER HAYLEY Admitting Unavailable AICHHOLZ, TOURIST ADVISER HAYLEY Attending Unavailable AICHHOLZ, TOURIST ADVISER HAYLEY Consulting Unavailable AICHHOLZ, TOURIST ADVISER HAYLEY Primary Care Unavailable AICHHOLZ, TOURIST ADVISER HAYLEY Admitting Unavailable AICHHOLZ, TOURIST ADVISER HAYLEY Attending Unavailable AICHHOLZ, TOURIST ADVISER HAYLEY Consulting Unavailable AICHHOLZ, TOURIST ADVISER HAYLEY Primary Care Unavailable BRE PRYOR Attending Unavailable AICHHOLZ, HAYLEY Attending Unavailable AICHHOLZ, HAYLEY Attending Unavailable Aichholz CALL CENTER TEAM LEADER, Hayley Unavailable Dae Amato MD Primary Care Provider Aichholz CALL CENTER TEAM LEADER, Hayley Unavailable Aichholz CALL CENTER TEAM LEADER-C, Hayley J Primary Care Provider Aichholz CALL CENTER TEAM LEADER-C, Hayley J Attending Provider Aichholz CALL CENTER TEAM LEADER, Hayley Unavailable Dae Amato MD Primary Care Provider Allan CALL CENTER TEAM LEADER, Hayley Unavailable Allergies Allergy ClassificationReported Allergen(s)Allergy TypeDate of OnsetReaction(s) Facility (1 source)AmoxicillinDrug Xrntqik54-37-3856Ndv [facility] Repository (5 sources)Penicillin GDrug Gwksdvd47-36-3686[facility] Work Phone: Medications Current Medications MedicationDrug Class(es)DatesSig (Normalized)Sig (Original)busPIRone hydrochloride 5 mg oral tablet (7 sources)Start: 10-16-2023 End: 88-19-1592illk 1 tablet by mouth twice daily as needed for anxietyBuspirone 5 mg tablet Active 5 MG PO Twice daily as needed for anxiety 60 January 13, 2025 12:02pm Complies with drug therapylosartan potassium 25 mg oral tablet (9 sources)Angiotensin 2 Receptor BlockerStart: 56-59-9379lkpv 1 tablet by mouth once dailyLosartan 25 mg tablet Active 25 MG PO Daily 30 January 13, 2025 12:00am Complies with drug therapyStart: 01-12-2025 End: 79-69-2600dcss 1 tablet by mouth once dailyLosartan 50 mg tablet Discontinued 50 MG PO Daily January 12, 2025 12:00am January 13, 2025 12:02pmStart: 11-04-2023 End: 59-74-5597wdog 1 tablet by mouth once dailylosartan (Cozaar) 50 MG tablet Indications: Essential (primary) hypertension (CMS/HCC) Take 1 tablet (50 mg) by mouth Daily 30 tablet 2 12/17/2023 01/16/2024 Active Completed/Discontinued Medications MedicationDrug Class(es)DatesSig (Normalized)Sig (Original)24 hr metFORMIN hydrochloride 500 mg extended release oral tablet (3 sources)BiguanideStart: 10-08-2023 End: 77-86-9161cxch 1 tablet by mouth every twenty-four hours at mealtime metFORMIN XR (Glucophage-XR) 500 MG 24 hr tablet Indications: PCOS (polycystic ovarian syndrome) Take 1 tablet (500 mg) by mouth in the evening. Take with meals Do not crush, chew, or split. 30 tablet 11 10/08/2023 12/17/2023 Discontinued (Therapy completed) Problems Active Problems Problem ClassificationProblemDateDocumented DateEpisodic/ChronicAnxiety disorders (7 sources)Generalized anxiety disorder; Translations: [Generalized anxiety disorder]Onset: 269839-03-9929HcwyrrzCvfwzvayb hypertension (16 sources)Essential (primary) hypertension; Translations: [Essential hypertension]Onset: 58-03-0556GrzvqnjHtttfsao; including migraine (7 sources)Migraine; Translations: [Migraine, unspecified, not intractable, without status migrainosus]Onset: 358237-80-0042RhtluocUhaifzeit disorders (1 source)Excessive and frequent menstruation with irregular cycle; Translations: [EXCESS AND FREQ MEN W/IRREG CYCLE]Onset: 17-47-8885Afdxgpf Nutritional deficiencies (1 source)Vitamin D deficiency, unspecified; Translations: [VITAMIN D DEFICIENCY UNSPECIFIED]Onset: 90-65-8647IqfrnkjPdfla endocrine disorders (7 sources)Hyperinsulinism; Translations: [Other hypoglycemia]Onset: 11-04-2023 23-33-8163JqzozseEuyvr gastrointestinal disorders (4 sources)Other fecal abnormalities; Translations: [OTHER FECAL ABNORMALITIES] Onset: 92-76-5378IrvvpxesRivpp gastrointestinal disorders (4 sources)Diarrhea, unspecified; Translations: [DIARRHEA UNSPECIFIED]Onset: 21-40-4516PulxcpmxHitfn nutritional; endocrine; and metabolic disorders (1 source)Obesity, unspecified; Translations: [OBESITY UNSPECIFIED]Onset: 32-67-4911JkxjeskEesvp nutritional; endocrine; and metabolic disorders (9 sources)Morbid obesity; Translations: [Morbid (severe) obesity due to excess calories]Onset: 958496-91-5469XqnbgtqSibdq and delivery including normal (4 sources)Encounter for care and examination of lactating mother; Translations: [ENC CARE AND EXAM LACTATING MOTHER]Onset: 59-35-5969RynacdbnBlctkyuq codes; unclassified (7 sources)Obstructive sleep apnea syndrome; Translations: [Obstructive sleep apnea (adult) (pediatric)]Onset: hronic Past or Other Problems Problem ClassificationProblemDateDocumented DateEpisodic/ChronicImmunizations and screening for infectious disease (1 source)Encounter for screening for human papillomavirus (HPV); Translations: [ENC SCREENING HUMAN PAPILLOMAVIRUS]Onset: 96-31-7266KyniuphcXzudu endocrine disorders (4 sources)Endocrine disorder, unspecified; Translations: [ENDOCRINE DISORDER UNSPECIFIED]Onset: 96-33-9556EhqnfsgtFtgtw infections; including parasitic (6 sources)Personal history of other infectious and parasitic diseases; Translations: [History of COVID-19]Onset: 855264-23-9912MxossvmtZpjzy nutritional; endocrine; and metabolic disorders (1 source)Abnormal weight gain; Translations: [ABNORMAL WEIGHT GAIN]Onset: 12-60-5400BkqqzdutCkbda screening for suspected conditions (not mental disorders or infectious disease) (4 sources)Encounter for screening for malignant neoplasm of cervix; Translations: [ENC SCREENING MALIG NEOPLASM CERV]Onset: 82-79-5753SrshjbapSgsnb skin disorders (1 source)Hirsutism; Translations: [HIRSUTISM]Onset: 44-83-6810KibtlovpTreouibj codes; unclassified (1 source)Insomnia, unspecified; Translations: [INSOMNIA UNSPECIFIED]Onset: 62-85-9631GhqrmqdhLravaugp codes; unclassified (1 source)Other amnesia; Translations: [OTHER AMNESIA]Onset: 54-11-7332Zoerfwpw Spondylosis; intervertebral disc disorders; other back problems (7 sources)Lumbago; Translations: [Pain in left lumbar region of back]Onset: 314090-04-9352Eteqadba Results Test NameValueInterpretationReference RangeFacilityUS PELVIS W/ TRANSVAGINALon 17-71-3990[place]mv[place] [address] Ultrasound Report Signed Patient: ALNA RODRIGUEZ MR#: [id number] : 1985 Acct:[id number] Age/Sex: 38 / F ADM Date: 10/27/23 Loc: US Attending Dr: Bre Pryor D.O. Ordering Physician: Bre Pryor D.O. Date of Service: 10/27/23 Procedure(s): US pelvis w/ transvaginal Accession Number(s): [id number] cc: Bre Pryor D.O. [address] [place] [address] Patient Name: ALAN RODRIGUEZ MRN: [id number] date: 1985 Sex: F Assigned Patient Location: US Current Patient Location: Accession/Order Number: [id number] Exam Date: 10/27/2023 17:06 Report Date: 10/29/2023 07:45 At the request of: BRE PRYOR Procedure: US pelvis w/ transvaginal EXAMINATION: US pelvis w/ transvaginal HISTORY: Polycystic Ovarian Syndrome E28.2 COMPARISON: Ultrasound pelvis 05/02/2017 TECHNIQUE: Transabdominal and/or transvaginal sonographic examination was performed as indicated by examination type. FINDINGS: UTERUS: Normal size and appearance. Multiple nabothian cysts within sin of cervix, largest is 1.6 cm. Uterus size: 11.0 x 5.8 x 6.3 cm ENDOMETRIUM: Normal homogeneous appearance. Endometrial thickness: 8 mm RIGHT OVARY: Normal size and appearance. Duplex Doppler demonstrates normal waveform and flow; resistive index 0.6. Ovary size: 3.3 x 2.2 x 2.4 cm LEFT OVARY: Not seen. Obscuring overlying bowel gas. . CUL-DE-SAC: Unremarkable. No significant free fluid. BLADDER: Unremarkable. OTHER: None. US/US pelvis w/ transvaginal IMPRESSION: 1. The left ovary was not seen (obscured by overlying bowel gas), but right ovary shows no evidence of polycystic ovarian disease. Electronically authenticated by: PIETRO SOLORZANO Date: 10/29/2023 07:45 Dictated By: Pietro Solorzano M.D. Signed By: 10/29/2348 DD/ TD/TT: Criminal Justice Instructor:PREMadiology, Radiologist, - 10/29/2023 [place] [address] Ultrasound Report Signed Patient: ALAN RODRIGUEZ MR#: [id number] : 1985 Acct:[id number] Age/Sex: 38 / F ADM Date: 10/27/23 Loc: US Attending Dr: Bre Pryor D.O. Ordering Physician: Bre Pryor D.O. Date of Service: 10/27/23 Procedure(s): US pelvis w/ transvaginal Accession Number(s): [id number] cc: Bre Pryor D.O. [place] [id number] Patient Name: ALAN RODRIGUEZ MRN: [id number] date: 1985 Sex: F Assigned Patient Location: US Current Patient Location: Accession/Order Number: [id number] Exam Date: 10/27/2023 17:06 Report Date: 10/29/2023 07:45 At the request of: BRE PRYOR Procedure: US pelvis w/ transvaginal EXAMINATION: US pelvis w/ transvaginal HISTORY: Polycystic Ovarian Syndrome E28.2 COMPARISON: Ultrasound pelvis 05/02/2017 TECHNIQUE: Transabdominal and/or transvaginal sonographic examination was performed as indicated by examination type. FINDINGS: UTERUS: Normal size and appearance. Multiple nabothian cysts within sin of cervix, largest is 1.6 cm. Uterus size: 11.0 x 5.8 x 6.3 cm ENDOMETRIUM: Normal homogeneous appearance. Endometrial thickness: 8 mm RIGHT OVARY: Normal size and appearance. Duplex Doppler demonstrates normal waveform and flow; resistive index 0.6. Ovary size: 3.3 x 2.2 x 2.4 cm LEFT OVARY: Not seen. Obscuring overlying bowel gas. . CUL-DE-SAC: Unremarkable. No significant free fluid. BLADDER: Unremarkable. OTHER: None. US/US pelvis w/ transvaginal IMPRESSION: 1. The left ovary was not seen (obscured by overlying bowel gas), but right ovary shows no evidence of polycystic ovarian disease. Electronically authenticated by: PIETRO SOLORZANO Date: 10/29/2023 07:45 Dictated By: Pietro Solorzano M.D. Signed By: 10/29/2348 DD/ TD/TT: Criminal Justice Instructor: [facility] HealthcareRadiology Study observation (narrative)[facility] CHILDRENBrian HealthcareUS PELVIS W/ TRANSVAGINALOrdered By: Radiologist Radiology on 60-76-5278MPJ[facility] Healthcare Work Phone: OVA AND PARASITE EXAMINATIONon 27-76-4813Mlt + Parasite ExamFinal reportNoSelect Medical Specialty Hospital - Columbus SouthComment on above:Result Comment: These results were obtained using wet preparation(s) and trichrome stained smear. This test does not include testing for Cryptosporidium parvum, Cyclospora, or Microsporidia.Performed By: #### OVAPE #### [facility] [address] [place] [address] Dr. Awilda Alfaro 1CKettering Health Main CampusComment on above:Result Comment: No ova, cysts, or parasites seen. . One negative specimen does not rule out the possibility of a parasitic infection.Performed By: #### OVAPE #### [facility] [address] [place] [address] Dr. Awilda Casas CULTUREon 50-44-7372Wcclappkjaluq CultureFinal reportNormal [facility] CenterComment on above:Performed By: #### TPOAB #### [facility] [address] [place] [address] Dr. Awilda Potter coli Shiga Toxin EIANegativeNonorth carolina specialty hospitalNegativeFulton County Health Center Comment on above:Performed By: #### TPOAB #### [facility] [address] [place] [address] Dr. Awilda Alfaro 1CKettering Health Main CampusComment on above:Result Comment: No Salmonella or Shigella recovered.Performed By: #### TPOAB #### [facility] [address] [place] [address] Dr. Awilda Alfaro Comment: No Campylobacter species isolated. Salmonella/Shigella ScreenFinal reportNoSelect Medical Specialty Hospital - Columbus SouthComment on above:Performed By: #### TPOAB #### [facility] [address] [place] [address] Dr. Awilda Allison. DIFF PCRon 09-06-2022. DIFFICILE PCRNegativeNormalNEGATIVEThe [facility]itan HospitalComment on above:Performed By: #### CDIFPOC #### [facility] [address] [place] [address] Dr. Awilda Hollins BLD IMMUNO SCREENon 78-89-5330QVKOFS BLOODPositiveAbnormal NEGATIVEThe [facility]itan HospitalComment on above:Performed By: #### CDIFPOC #### [facility] [address] [place] [address] Dr. Awilda BryantCBC AUTO DIFFon 54-27-7298BEHQ #0.1 103/ulNormal0.0-0.1The [facility] HospitalComment on above:Performed By: #### CDIFPOC #### [facility] [address] [place] [address] Dr. Awilda BryantBasophils/100 WBC (Bld)0.7 %Normal0.2-2.0[facility] Comment on above:Performed By: #### CDIFPOC #### [facility] [address] [place] [address] Dr. Awilda Godfrey #0.1 103/ulNormal0.0-0.7The [facility] HospitalComment on above: Performed By: #### CDIFPOC #### [facility] [address] [place] [address] Dr. Awilda Potterosinophils/100 WBC (Bld)1.9 %Normal0.9-7.0[facility] Comment on above:Performed By: #### CDIFPOC #### [facility] [address] [place] [address] Dr. Awilda Potterrythrocyte distribution width (RBC) [Ratio]12.7 %Xzmzmp66.0-15.0 The [facility] HospitalComment on above:Performed By: #### CDIFPOC #### [facility] [address] [place] [address] Dr. Awilda BryantHematocrit (Bld) [Volume fraction]41.9 %Elftme34.0-48.0The [facility] HospitalComment on above:Performed By: #### CDIFPOC #### [facility] [address] [place] [address] Dr. Awilda BryantHemoglobin (Bld) [Mass/Vol]14.7 g/qDCptfxh22.0-16.0The [facility] on above:Performed By: #### CDIFPOC #### [facility] [address] [place] [address] Dr. Awilda Sanchez #0.02 10e3/ulNormal0.00-0.03The [facility] HospitalComment on above:Performed By: #### CDIFPOC #### [facility] [address] [place] [address] Dr. Awilda Sanchez %0.3 %Normal0.0-0.5The [facility] HospitalComment on above: Performed By: #### CDIFPOC #### [facility] [address] [place] [address] Dr. Awilda Kline #2.1 103/ulNormal1.2-3.8The [facility] HospitalComment on above:Performed By: #### CDIFPOC #### [facility] [address] [place] [address] Dr. Awilda Joneshocytes/100 WBC (Bld)31.4 %Ocqzdn47.5-60.0The [facility] on above:Performed By: #### CDIFPOC #### [facility] [address] [place] [address] Dr. Awilda BritoUAL DIFF REQNONormalThe [facility] HospitalComment on above: Performed By: #### CDIFPOC #### [facility] [address] [place] [address] Dr. Awilda Millan (RBC) [Entitic mass]29.7 kzUvrqqh07.7-34.0The [facility] on above:Performed By: #### CDIFPOC #### [facility] [address] [place] [address] Dr. Awilda Millan (RBC) [Mass/Vol]35.1 g/iACymmrb06.9-35.2The Don HospitalComment on above:Performed By: #### CDIFPOC #### [facility] [address] [place] [address] Dr. Awilda MillanV (RBC) [Entitic vol]84.6 mEZbaoxs32.0-99.0The [facility] HospitalComment on above:Performed By: #### CDIFPOC #### [facility] [address] [place] [address] Dr. Awilda Luciano #0.5 103/ulNormal0.3-0.8The [facility] HospitalComment on above:Performed By: #### CDIFPOC #### [facility] [address] [place] [address] Dr. Awilda Agarwalocytes/100 WBC (Bld)7.5 %Normal1.7-12.0The [facility] Comment on above:Performed By: #### CDIFPOC #### [facility] [address] [place] [address] Dr. Awilda Garza #4.0 103/ulNormal1.4-6.5The [facility] HospitalComment on above:Performed By: #### CDIFPOC #### [facility] [address] [place] [address] Dr. Awilda Wilsonutrophils/100 WBC (Bld)58.2 %Ffyyja08.0-75.0The [facility] HospitalComment on above:Performed By: #### CDIFPOC #### [facility] [address] [place] [address] Dr. Awilda Harrislet mean volume (Bld) [Entitic vol]9.8 fLNormal9.5-13.5The [facility] HospitalComment on above:Performed By: #### CDIFPOC #### [facility] [address] [place] [address] Dr. Awilda BryantPLT344 103/vjQzygbx475-407Jpl [facility] HospitalComment on above: Performed By: #### CDIFPOC #### [facility] [address] [place] [address] Dr. Awilda BryantRBC4.95 106/ulNormal4.20-5.40The [facility] HospitalComment on above:Performed By: #### CDIFPOC #### [facility] [address] [place] [address] [address] Awilda BryantWBC6.8 103/ulNormal4.0-11.0The [facility] HospitalComment on above: Performed By: #### CDIFPOC #### [facility] [address] [place] [address] Dr. Awilda BryantLIPID PROFILEon 71-14-3518FMBE-HDL RATIO NORMSEE Regional Medical CenterComment on above:Result Comment: 3.3 - 4.4 LOW RISK 4.4 - 7.1 AVERAGE RISK 7.1 - 11.0 MODERATE RISK >11.0 HIGH RISKPerformed By: #### TPOAB #### [facility] [address] [place] [address] Dr. Awilda BryantCholesterol [Mass/Vol]159 mg/dLNormal<=200The [facility] Comment on above:Performed By: #### TPOAB #### [facility] [address] [place] [address] [address] Awilda BryantCholesterol in HDL [Mass/Vol]40 mg/jRTwudfs64-41Pyx [facility] HospitalCompine rest christ[facility] on above:Performed By: #### TPOAB #### [facility] [address] [place] [address] [address] Awilda BryantCholesterol in LDL [Mass/Vol]102.2 mg/dLTrumbull Regional Medical CenterComment on above:Performed By: #### TPOAB #### [facility] [address] [address] [address] Awilda Anglin.total/Cholesterol in HDL [Mass ratio]4.0 {ratio} NormalThe [facility]aritan HospitalComment on above:Performed By: #### TPOAB #### [facility] [address] [place] [address] Dr. Awilda Horn NORMAL> or = 60 mg/dl - LOW CARDIOVASCULAR RISK <40 mg/dl - HIGH CARDIOVASCULAR RISKNoSelect Medical Specialty Hospital - Columbus SouthComment on above:Performed By: #### TPOAB #### [facility] [address] [place] [address] [address] Awilda BryantLDL CALC NORMALSEE BELOWTrumbull Regional Medical CenterComment on above:Result Comment: <100 mg/dl OPTIMAL 100 - 129 mg/dl NEAR OR ABOVE OPTIMAL 130 - 159 mg/dl BORDERLINE HIGH 160 - 189 mg/dl HIGH >190 mg/dl VERY HIGH Performed By: #### TPOAB #### [facility] [address] [place] [address] Dr. Awilda BryantTriglyceride [Mass/Vol]84 mg/dLNormal<=150The [facility] Comment on above:Performed By: #### TPOAB #### [facility] [address] [place] [address] Dr. Awilda BryantVLDL CALC16.8 mg/dLNoSelect Medical Specialty Hospital - Columbus SouthComment on above: Performed By: #### TPOAB #### [facility] [address] [place] [address] Dr. Awilda BryantPROF 14(COMP METB)on 35-42-7069Zevzqok [Mass/Vol]4.0 g/dLNormal 3.4-5.0The [facility] HospitalComment on above:Performed By: #### CMP, TSH, LIPID #### [facility] [address] [place] [address] Dr. Awilda BryantAlbumin/Globulin [Mass ratio]1.0 {ratio}NormalThe [facility]itan HospitalComment on above:Performed By: #### CMP, TSH, LIPID #### [facility] [address] [place] [address] Dr. Awilda DaileyP [Catalytic activity/Vol]62 U/FPqcxoc14-491Nrf [facility] Centerment on above:Performed By: #### CMP, TSH, LIPID #### [facility] [address] [place] [address] Dr. Awilda DaileyT [Catalytic activity/Vol]21 U/CXnzkqz31-96Kty [facility] HospitalComment on above:Performed By: #### CMP, TSH, LIPID #### [facility] [address] [address] [address] Awilda Millan gap [Moles/Vol]11.9 mmol/LNormalThe [facility] Comment on above:Performed By: #### CMP, TSH, LIPID #### [facility] [address] [place] [address] [address] Awilda BryantAST [Catalytic activity/Vol]23 U/BUckaxv86-30Snn [facility] HospitalComment on above:Performed By: #### CMP, TSH, LIPID #### [facility] [address] [address] [address] Awilda BryantBilirubin [Mass/Vol]0.6 mg/dLNormal0.2-1.0[facility] Comment on above:Performed By: #### CMP, TSH, LIPID #### [facility] [address] [place] [address] Dr. Awilda BryantCalcium [Mass/Vol]8.8 mg/dLNormal8.5-10.1[facility] Comment on above:Performed By: #### CMP, TSH, LIPID #### [facility] [address] [address] [address] Awilda BryantChloride [Moles/Vol]102 mmol/YNydvcs12-627Pdd [facility] Comment on above:Performed By: #### CMP, TSH, LIPID #### [facility] [address] [address] [address] Awilda BryantCO2 [Moles/Vol]27.5 mmol/LBbkqdc35.0-32.0The [facility] Comment on above:Performed By: #### CMP, TSH, LIPID #### [facility] [address] [address] [address] Awilda BryantCreatinine [Mass/Vol]0.60 mg/dLNormal0.55-1.02The [facility] HospitalComment on above:Performed By: #### CMP, TSH, LIPID #### [facility] [address] [address] [address] Awilda PotterGFR-AF GRENADIAN>60Normal>=60The [facility] HospitalComment on above:Performed By: #### CMP, TSH, LIPID #### [facility] [address] [place] [address] Dr. Awilda PotterGFR-NON AF GRENADIAN>60Normal>=60The [facility] HospitalComment on above:Performed By: #### CMP, TSH, LIPID #### [facility] [address] [place] [address] Dr. Awilda BryantGlobulin (S) [Mass/Vol]3.9 g/dLNormalThe [facility] HospitalComment on above:Performed By: #### CMP, TSH, LIPID #### [facility] [address] [place] [address] Dr. Awilda BryantGlucose [Mass/Vol]96 mg/sGKctpuc88-412XzkFulton County Health Center Comment on above:Performed By: #### CMP, TSH, LIPID #### [facility] [address] [place] [address] Dr. Awilda BryantPotassium [Moles/Vol]3.4 mmol/LCritically low3.5-5.1The [facility] Centerment on above:Performed By: #### CMP, TSH, LIPID #### [facility] [address] [place] [address] Dr. Awilda BryantProtein [Mass/Vol]7.9 g/dLNormal6.4-8.2[facility] Comment on above:Performed By: #### CMP, TSH, LIPID #### [facility] [address] [place] [address] Dr. Awilda BryantSodium [Moles/Vol]138 mmol/JMmpwmj608-928QktFulton County Health Center Comment on above:Performed By: #### CMP, TSH, LIPID #### [facility] [address] [place] [address] Dr. Awilda BryantUrea nitrogen [Mass/Vol]15.0 mg/dLNormal7.0-18.0The [facility] HospitalComment on above:Performed By: #### CMP, TSH, LIPID #### [facility] [address] [address] [address] Awilda Kerr nitrogen/Creatinine [Mass ratio]25.0 mg/mgNoalThPeoples HospitalComment on above:Performed By: #### CMP, TSH, LIPID #### [facility] [address] [place] [address] Dr. Awilda Clayton 80-42-7520IOQ0.349 uIU/mLNormal0.358-3.740The [facility] HospitalComment on above:Performed By: #### TPOAB #### [facility] [address] [place] [address] Dr. Awilda Carty RANDOM W/MICROSCOPICon 47-38-1054ULECEXKOEPKJ SEENNormalNONE SEENFulton County Health CenterComment on above:Performed By: #### UAMIC #### [facility] [address] [place] [address] Dr. Awilda Ortiz Ql (U)NegativeNormalNEGATIVEThe [facility] Comment on above:Performed By: #### UAMIC #### [facility] [address] [place] [address] Dr. Awilda Wilson SEENNormalNONE SEENFulton County Health CenterComment on above:Performed By: #### UAMIC #### [facility] [address] [place] [address] Dr. Awilda Scott (U)CLEARNormalCLEARFulton County Health CenterComment on above: Performed By: #### UAMIC #### [facility] [address] [place] [address] Dr. Awilda Padilla (U)YELLOWNormalYELLOWFulton County Health CenterComment on above: Performed By: #### UAMIC #### [facility] [address] [place] [address] Dr. Awilda Andresystals LM Nom (Urine sed)NONE SEENNormalNONE SEENFulton County Health CenterComment on above:Performed By: #### UAMIC #### [facility] [address] [place] [address] Dr. Kaiser ChangEpithelial cells LM Ql (Urine sed)NONE SEENNormalNONE SEEN /RARE The [facility] HospitalComment on above:Performed By: #### UAMIC #### [facility] [address] [place] [address] Dr. Awilda BryantGlucose Ql (U)NegativeNormalNEGATIVEFulton County Health CenterComment on above:Performed By: #### UAMIC #### [facility] [address] [place] [address] Dr. Awilda BryantHemoglobin Ql (U)NegativeNormalNEGATIVEMercy Health Tiff[facility] Hospital on above:Performed By: #### UAMIC #### [facility] [address] [place] [address] Dr. Awilda BryantKetones Ql (U)NegativeNormalNEGATIVEFulton County Health CenterComment on above:Performed By: #### UAMIC #### [facility] [address] [place] [address] Dr. Awilda BryantLEUKOCYTESNegativeNormalNEGATIVEFulton County Health CenterComment on above:Performed By: #### UAMIC #### [facility] [address] [place] [address] Dr. Awilda BryantMUCOUSNONE SEENNormalNONE SEENFulton County Health CenterComment on above:Performed By: #### UAMIC #### [facility] [address] [place] [address] Dr. Awilda Palmertrite Ql (U)NegativeNormalNEGATIVEFulton County Health CenterComment on above:Performed By: #### UAMIC #### [facility] [address] [place] [address] Dr. Awilda BryantpH (U)6.0 [pH]Normal5-9[facility] CenterComment on above: Performed By: #### UAMIC #### [facility] [address] [place] [address] Dr. Awilda BryantVtulgHSB9-8Ezvjxg7-1Rei [facility] HospitalComment on above:Performed By: #### UAMIC #### [facility] [address] [place] [address] Dr. Awilda BryantSPEC GRAVITY1.274Pslovz8.005-<=1.025[facility] CenterComment on above:Performed By: #### UAMIC #### [facility] [address] [place] [address] Dr. Awilda Carty PROTEINNegativeNormalNEGATIVE/ TRACEThe [facility] Comment on above:Performed By: #### UAMIC #### [facility] [address] [place] [address] Dr. Awilda Bettsbilino Qn (U)0.2 {Clarita'U}/dLNormal0.2 - 1.0The [facility] HospitalComment on above:Performed By: #### UAMIC #### [facility] [address] [place] [address] Dr. Awilda CanasBCNONMatt SEENNormalNONE SEENThe [facility] HospitalComment on above: Performed By: #### UAMIC #### [facility] [address] [place] [address] Dr. Awilda BryantVITAMIN D 25 OHon 28-45-0640VFI D 25-OH26.4 ng/mLNormalFulton County Health CenterComment on above:Performed By: #### CDIFPOC #### [facility] [address] [place] [address] Dr. Awilda Quinones RANGESSEE BELOWNoSelect Medical Specialty Hospital - Columbus SouthComment on above: Result Comment: <20 ng/mL Vit D deficient 20 - <30 ng/mL Vit D insufficient 30 - 100 ng/mL Vit D sufficient >100 ng/mL Potential ToxicityPerformed By: #### CDIFPOC #### [facility] [address] [place] [address] Dr. Awilda AshtonEA-SULFATEon 44-34-1922ILRT-Htqkbli17.2 ug/vVEpakkx24.3-279.2 The [facility] HospitalComment on above:Performed By: #### DHEASUL #### [facility] [address] [place] [address] Dr. Awilda BarnesTRADIOLon 34-27-3668Wegfivman46.9 pg/mLNormalFulton County Health CenterComment on above:Result Comment: Adult Female: Follicular phase 12.5 - 166.0 Ovulation phase 85.8 - 498.0 Luteal phase 43.8 - 211.0 Postmenopausal <6.0 - 54.7 1st trimester 215.0 - >4300.0 Perla ECLIA methodologyPerformed By: #### ESTRADI #### [facility] [address] [place] [address] Dr. Awilda BryantFSHon 08-95-5713PBA3.9 mIU/mLNormalThe [facility] HospitalComment on above:Result Comment: Adult Female: Follicular phase 3.5 - 12.5 Ovulation phase 4.7 - 21.5 Luteal phase 1.7 - 7.7 Postmenopausal 25.8 - 134.8Performed By: #### CDIFPOC #### [facility] [address] [place] [address] Dr. Awilda BryantPROLACTINon 62-39-7252Agpfjlxqu0.9 ng/mLNormal4.8-23.3The Louisville HospitalComment on above:Performed By: #### PROLAC #### [facility] [address] [place] [address] Dr. Awilda BryantTESTOSTERONE, TOTALon 97-25-3292Imyrahipfhzn [Mass/Vol]18 ng/dL Normal8-60The [facility] HospitalComment on above:Performed By: #### TPOAB #### [facility] [address] [place] [address] Dr. Awilda BryantTHYROGLOBULIN ABo 20-99-3031Ioxjrcvxbgdgk Antibody<1.0Normal 0.0-0.9The [facility] HospitalComment on above:Result Comment: Thyroglobulin Antibody measured by Gracie Dorothy MethodologyPerformed By: #### THYGAB #### [facility] [address] [place] [address] Dr. Awilda BryantTHYROID PEROXIDASE ABon 00-94-2924Zzreorf Peroxidase (TPO) Ab<9 Normal0-34The [facility] HospitalComment on above:Performed By: #### TPOAB #### [facility] [address] [place] [address] Dr. Awilda AlvarezC AUTO DIFFon 97-07-4775WNOH #0.1 103/ulNormal0.0-0.1The [facility] HospitalComment on above:Performed By: #### TPOAB #### [facility] [address] [place] [address] Dr. Awilda BryantBasophils/100 WBC (Bld)0.9 %Normal0.2-2.0The [facility] Comment on above:Performed By: #### TPOAB #### [facility] [address] [place] [address] Dr. Awilda Godfrey #0.2 103/ulNormal0.0-0.7The [facility] HospitalComment on above: Performed By: #### TPOAB #### [facility] [address] [place] [address] Dr. Awilda Potterosinophils/100 WBC (Bld)2.7 %Normal0.9-7.0The [facility] Comment on above:Performed By: #### TPOAB #### [facility] [address] [place] [address] Dr. Awilda Potterrythrocyte distribution width (RBC) [Ratio]12.6 %Igqkzm89.0-15.0 The [facility] HospitalComment on above:Performed By: #### TPOAB #### [facility] [address] [place] [address] Dr. Awilda BryantHematocrit (Bld) [Volume fraction]42.0 %Kxdjml51.0-48.0The [facility] HospitalComment on above:Performed By: #### TPOAB #### [facility] [address] [place] [address] Dr. Awilda BryantHemoglobin (Bld) [Mass/Vol]14.6 g/vKJoxmha28.0-16.0The [facility] HospitalComment on above:Performed By: #### TPOAB #### [facility] [address] [place] [address] Dr. Awilda Sanchez #0.02 10e3/ulNormal0.00-0.03The [facility] HospitalComment on above:Performed By: #### TPOAB #### [facility] [address] [address] [address] Awilda Sanchez %0.3 %Normal0.0-0.5The [facility] HospitalCompine rest christian mental [facility] services on above: Performed By: #### TPOAB #### [facility] [address] [place] [address] Dr. Awilda Kline #2.1 103/ulNormal1.2-3.8The [facility] HospitalComment on above:Performed By: #### TPOAB #### [facility] [address] [place] [address] Dr. Awilda Joneshocytes/100 WBC (Bld)31.2 %Jgxsad72.5-60.0The [facility] on above:Performed By: #### TPOAB #### [facility] [address] [place] [address] Dr. Awilda BritoUAL DIFF REQNONormalThe [facility] HospitalComment on above: Performed By: #### TPOAB #### [facility] [address] [place] [address] Dr. Awilda Millan (RBC) [Entitic mass]29.1 cqAttuzo87.7-34.0The [facility] on above:Performed By: #### TPOAB #### [facility] [address] [place] [address] Dr. Awilda Millan (RBC) [Mass/Vol]34.8 g/vXVprhbc41.9-35.2The [facility] on above:Performed By: #### TPOAB #### [facility] [address] [place] [address] Dr. Awilda Millan (RBC) [Entitic vol]83.8 pLNesayn49.0-99.0The [facility] on above:Performed By: #### TPOAB #### [facility] [address] [place] [address] Dr. Awilda Luciano #0.5 103/ulNormal0.3-0.8The [facility] HospitalComment on above:Performed By: #### TPOAB #### [facility] [address] [address] [address] Awilda Agarwalocytes/100 WBC (Bld)6.8 %Normal1.7-12.0The [facility] Comment on above:Performed By: #### TPOAB #### [facility] [address] [place] [address] Dr. Awilda WilsonUT #3.9 103/ulNormal1.4-6.5The [facility] HospitalComment on above:Performed By: #### TPOAB #### [facility] [address] [place] [address] Dr. Awilda Wilsonutrophils/100 WBC (Bld)58.1 %Tidvzt36.0-75.0The [facility] HospitalComment on above:Performed By: #### TPOAB #### [facility] [address] [place] [address] Dr. Awilda Harrislet mean volume (Bld) [Entitic vol]9.2 fLCritically low 9.5-13.5The [facility] HospitalComment on above:Performed By: #### TPOAB #### [facility] [address] [place] [address] Dr. Awilda BryantPLT412 103/owDjckus758-343Jic [facility] HospitalComment on above: Performed By: #### TPOAB #### [facility] [address] [place] [address] Dr. Awilda BryantRBC5.01 106/ulNormal4.20-5.40The [facility] HospitalComment on above:Performed By: #### TPOAB #### [facility] [address] [place] [address] Dr. Awilda BryantWBC6.7 103/ulNormal4.0-11.0The [facility] HospitalComment on above: Performed By: #### TPOAB #### [facility] [address] [place] [address] Dr. Awilda Murry T3on 68-38-4674BNQE T32.68 pg/mlLNormal2.18-3.98The [facility] HospitalComment on above:Performed By: #### TPOAB #### [facility] [address] [place] [address] Dr. Awilda Murry T4on 43-73-3628Aikw T4 [Mass/Vol]1.24 ng/dLNormal0.76-1.46 The [facility] HospitalComment on above:Performed By: #### CDIFPOC #### [facility] [address] [place] [address] Dr. Awilda HernandesID PROFILEon 85-63-7033BHJL-HDL RATIO NORMSEE BELOWTrumbull Regional Medical CenterComment on above:Result Comment: 3.3 - 4.4 LOW RISK 4.4 - 7.1 AVERAGE RISK 7.1 - 11.0 MODERATE RISK >11.0 HIGH RISKPerformed By: #### TPOAB #### [facility] [address] [place] [address] Dr. Awilda Vickersesterol [Mass/Vol]179 mg/dLNormal<=200The [facility] Comment on above:Performed By: #### TPOAB #### [facility] [address] [place] [address] Dr. Awilda Vickersesterol in HDL [Mass/Vol]44 mg/mUXboztb44-07Gcw [facility] HospitalComment on above:Performed By: #### TPOAB #### [facility] [address] [place] [address] Dr. Awilda Vickersesterol in LDL [Mass/Vol]111.8 mg/dLTrumbull Regional Medical CenterCompine rest christ[facility] mental health services on above:Performed By: #### TPOAB #### [facility] [address] [place] [address] Dr. Awilda Anglin.total/Cholesterol in HDL [Mass ratio]4.1 {ratio} NormalThe [facility] HospitalComment on above:Performed By: #### TPOAB #### [facility] [address] [place] [address] Dr. Awilda Horn NORMAL> or = 60 mg/dl - LOW CARDIOVASCULAR RISK <40 mg/dl - HIGH CARDIOVASCULAR RISKTrumbull Regional Medical CenterComment on above:Performed By: #### TPOAB #### [facility] [address] [place] [address] Dr. Awilda Muñoz CALC NORMALSEE BELOWNoSelect Medical Specialty Hospital - Columbus SouthComment on above:Result Comment: <100 mg/dl OPTIMAL 100 - 129 mg/dl NEAR OR ABOVE OPTIMAL 130 - 159 mg/dl BORDERLINE HIGH 160 - 189 mg/dl HIGH >190 mg/dl VERY HIGH Performed By: #### TPOAB #### [facility] [address] [place] [address] Dr. Awilda BryantTriglyceride [Mass/Vol]116 mg/dLNormal<=150The [facility] Comment on above:Performed By: #### TPOAB #### [facility] [address] [place] [address] Dr. Awilda BryantVLDL CALC23.2 mg/dLNoSelect Medical Specialty Hospital - Columbus SouthComment on above: Performed By: #### TPOAB #### [facility] [address] [place] [address] Dr. Awilda BryantPROF 14(COMP METB)on 79-02-1608Wgbhdqj [Mass/Vol]3.9 g/dLNormal 3.4-5.0The [facility] HospitalComment on above:Performed By: #### TPOAB #### [facility] [address] [place] [address] Dr. Awilda BryantAlbumin/Globulin [Mass ratio]1.1 {ratio}NormalThe [facility] HospitalComment on above:Performed By: #### TPOAB #### [facility] [address] [place] [address] Dr. Awilda Marie [Catalytic activity/Vol]70 U/IRbykrj67-804Efu [facility] HospitalCompine rest [facility] on above:Performed By: #### TPOAB #### [facility] [address] [place] [address] Dr. Awilda Neil [Catalytic activity/Vol]22 U/BLpmohb77-72Mul [facility] HospitalComment on above:Performed By: #### TPOAB #### [facility] [address] [address] [address] Awilda Pitton gap [Moles/Vol]11.5 mmol/LNormalThe [facility] Comment on above:Performed By: #### TPOAB #### [facility] [address] [address] [address] Awilda BryantAST [Catalytic activity/Vol]16 U/LQbfahw58-38Moh [facility] HospitalComment on above:Performed By: #### TPOAB #### [facility] [address] [address] [address] Awilda BryantBilirubin [Mass/Vol]0.5 mg/dLNormal0.2-1.0The [facility] Comment on above:Performed By: #### TPOAB #### [facility] [address] [place] [address] Dr. Awilda BryantCalcium [Mass/Vol]9.3 mg/dLNormal8.5-10.1[facility] Comment on above:Performed By: #### TPOAB #### [facility] [address] [place] [address] Dr. Awilda BryantChloride [Moles/Vol]104 mmol/ZKtzzoh24-296Iwc [facility] Comment on above:Performed By: #### TPOAB #### [facility] [address] [place] [address] Dr. Awilda BryantCO2 [Moles/Vol]28.3 mmol/UEffqlx74.0-32.0The [facility] Comment on above:Performed By: #### TPOAB #### [facility] [address] [place] [address] Dr. Awilda BryantCreatinine [Mass/Vol]0.52 mg/dLCritically low0.55-1.02The [facility] HospitalComment on above:Performed By: #### TPOAB #### [facility] [address] [address] [address] Kaiser ChangEGFR-AF GRENADIAN>60Normal>=60The [facility] HospitalComment on above:Performed By: #### TPOAB #### [facility] [address] [address] [address] Awilda PotterGFR-NON AF GRENADIAN>60Normal>=60The [facility] HospitalComment on above:Performed By: #### TPOAB #### [facility] [address] [address] [address] Awilda BryantGlobulin (S) [Mass/Vol]3.6 g/dLNormUC HealthComment on above:Performed By: #### TPOAB #### [facility] [address] [address] [address] Awilda BryantGlucose [Mass/Vol]105 mg/jYPwwgqd96-755InwFulton County Health Center Comment on above:Performed By: #### TPOAB #### [facility] [address] [address] [address] Awilda BryantPotassium [Moles/Vol]3.8 mmol/LNormal3.5-5.1The [facility] Comment on above:Performed By: #### TPOAB #### [facility] [address] [address] [address] Awilda BryantProtein [Mass/Vol]7.5 g/dLNormal6.4-8.2[facility] Comment on above:Performed By: #### TPOAB #### [facility] [address] [address] [address] Awilda BryantSodium [Moles/Vol]140 mmol/UNrnpse508-929WldFulton County Health Center Comment on above:Performed By: #### TPOAB #### [facility] [address] [address] [address] Awilda BryantUrea nitrogen [Mass/Vol]16.0 mg/dLNormal7.0-18.0The [facility] HospitalComment on above:Performed By: #### TPOAB #### [facility] [address] [address] [address] Awilda BryantUrea nitrogen/Creatinine [Mass ratio]30.8 mg/mgNormUC HealthComment on above:Performed By: #### TPOAB #### [facility] [address] [place] [address] Dr. Awilda BryantTSHomonique 93-18-1941BWF9.228 uIU/mLNormal0.358-3.740[facility] on above:Performed By: #### TPOAB #### [facility] [address] [place] [address] Dr. Awilda BryantVITAMIN B12on 77-97-4395Ayfppynhj (Vitamin B12) [Mass/Vol]323.0 pg/yYNdpyuy844.0-986.0[facility] CenterCompine rest [facility] services on above:Performed By: #### CDIFPOC #### [facility] [address] [place] [address] Dr. Awilda BryantVITAMIN D 25 OHon 09-58-6855NGD D 25-OH26.9 ng/mLNormalFulton County Health CenterCompine rest christ[facility] mental health services on above:Performed By: #### TPOAB #### [facility] [address] [place] [address] Dr. Awilda Stratton D RANGESSE BELOWTrumbull Regional Medical CenterCompine rest christian mental health services on above: Result Comment: <20 ng/mL Vit D deficient 20 - <30 ng/mL Vit D insufficient 30 - 100 ng/mL Vit D sufficient >100 ng/mL Potential ToxicityPerformed By: #### TPOAB #### [facility] [address] [place] [address] Dr. Awilda Cheng ACOG PANEL 2: 30 to 65on 11-13-2021..NormalThe [facility] HospitalCompine rest christ[facility] mental [facility] services on above:Result Comment: Performed at: WBPerformed By: #### [id number] #### [facility] [address] [place] [address] Dr. Awilda Jones Gdln ACOG Xbvsxqa31-65LjdroyKwkTrumbull Regional Medical CenterCompine rest christ[facility] mental health services on above:Performed By: #### [id number] #### [facility] [address] [place] [address] Dr. Awilda BryantDIAGNOSIS:[facility] on above: Result Comment: NEGATIVE FOR INTRAEPITHELIAL LESION OR MALIGNANCY. Performed at: WBPerformed By: #### [id number] #### [facility] [address] [place] [address] Dr. Awilda BryantHPV AptimaNegativeNormalNegativeThe [facility] on above:Result Comment: This nucleic acid amplification test detects fourteen high-risk HPV types (16,18,31,33,35,39,45,51,52,56,58,59,66,68) without differentiation. Performed at: =GPerformed By: #### [id number] #### [facility] [address] [place] [address] Dr. Awilda BryantMethodology:CommentGood Samaritan Hospital on above: Result Comment: This liquid based ThinPrep(R) pap test was screened with the use of an image guided system. Performed at: WBPerformed By: #### [id number] #### [facility] [address] [place] [address] Dr. Awilda BryantNote:CommentNoUniversity Hospitals Conneaut [facility] Center on above:Result Comment: The Pap smear is a screening test designed to aid in the detection of premalignant and malignant conditions of the uterine cervix. It is not a diagnostic procedure and should not be used as the sole means of detecting cervical cancer. Both false-positive and false-negative reports do occur. . Performed at: WBPerformed By: #### [id number] #### [facility] [address] [place] [address] Dr. Awilda BryantPerformed by:CommentNoUniversity Hospitals Conneaut Medical Center on above: Result Comment: Kayla Shook, Stereoptic Projection Topographer (ASCP) Performed at: WBPerformed By: #### [id number] #### [facility] [address] [place] [address] Dr. Awilda BryantSpecimen adequacy:CommentGood Samaritan Hospital on above:Result Comment: Satisfactory for evaluation. Endocervical and/or squamous metaplastic cells (endocervical component) are present. Performed at: WBPerformed By: #### [id number] #### [facility] [address] [place] [address] Dr. Awilda Bryant Vital Signs Date TimeVital SignValuePerforming XjhofsoezPmdiqwaq38-76-6766 11:41-0400Body jmlneuzehyg51.8 [degF]Hayley Aichholz CALL CENTER TEAM LEADER-C Work Phone: [phone]09-18-2025 11:41-0400 Body nztogh02.08 kgLisa Aichholz CALL CENTER TEAM LEADER-C Work Phone: [phone] [place], [place] 2830409-18-2025 11:41-0400 Diastolic blood rtomydng06 mm[Hg]Hayley Aichholz CALL CENTER TEAM LEADER-C Work Phone: [phone]09-18-2025 11:41-0400 Heart rate80 /minLisa Aichholz CALL CENTER TEAM LEADER-C Work Phone: [phone]09-18-2025 11:41-0400 Respiratory rate16 /minLisa Aichholz CALL CENTER TEAM LEADER-C Work Phone: [phone]09-18-2025 11:41-0400 SaO2% (BldA) [Mass fraction]98 %Hayley Aichholz CALL CENTER TEAM LEADER-C Work Phone: [phone] [place], [place] 2830409-18-2025 11:41-0400 Systolic blood qgiwmttl498 mm[Hg]Hayley Aichholz CALL CENTER TEAM LEADER-C Work Phone: [phone] [place], [place] 2830408-21-2024 14:04-0400 Body .5 cmLisa Aichholz CALL CENTER TEAM LEADER Work Phone: [facility] HospitalHehuvmnyzm72-47-0024 14:04-0400Body mass index (BMI) [Ratio]35.08 kg/m2Lisa Aichholz CALL CENTER TEAM LEADER Work Phone: [facility] HospitalMyqqrllwme93-93-0925 14:04-0400Body temperature 98.01 [degF]Hayley Aichholz CALL CENTER TEAM LEADER Work Phone: [facility] HospitalEwllnpnjle22-65-4850 14:04-0400Body yflams12 kg Hayley Aichholz CALL CENTER TEAM LEADER Work Phone: noMer[facility]oks HospitalIhimlplvgm02-13-1260 14:04-0400Diastolic blood wogthuyi08 mm[Hg]Hayley Jacksonkaren CALL CENTER TEAM LEADER Work Phone: noMer[facility]-Brooks HospitalUuivsepizg57-06-6562 14:04-0400Heart rate78 /min Hayley Allan CALL CENTER TEAM LEADER Work Phone: noMer[facility]oks HospitalXfmosbkehv18-94-4166 14:04-0400Respiratory rate18 /minHayley Allan CALL CENTER TEAM LEADER Work Phone: noMercy McCune-Brooks HospitalWiqjkiytiz38-86-6857 14:04-8537XvC1% (BldA) [Mass fraction]98 %Hayley Jacksonkaren CALL CENTER TEAM LEADER Work Phone: noMercy McCune-Brooks HospitalAiukaqiqye46-69-7606 14:04-0400Systolic blood xoilrpzr131 mm[Hg]Hayley Ivonrazkaren CALL CENTER TEAM LEADER Work Phone: [facility] Encounters Encounter DateEncounter TypeCare ProviderFacilityStart: 01-13-2025 End: 10-68-3534jeylwmfpuxSkic J Aichholz CALL CENTER TEAM LEADER-C Work Phone: [facility] Work Phone: Start: 01-13-2025 End: 83-84-6692Afulmtx encounter procedureLisa Alexi Lemus CALL CENTER TEAM LEADER-C-[facility] Work Phone: Start: 02-09-2024 End: 74-49-6524UhsmyyWdsa Aichholz CALL CENTER TEAM LEADER Work Phone: [facility] CWM FMComment on above:Essential (primary) hypertension (CMS/HCC)Start: 12-17-2023 End: 61-96-1360Snpths flowsheetHayley Lemus CALL CENTER TEAM LEADER Work Phone: [facility] FMStart: 12-17-2023 End: 95-97-5050Qsyiqc flowsheetLisa Lemus CALL CENTER TEAM LEADER Work Phone: [facility] FMStart: 12-17-2023 End: 40-20-5675Szmfvw outpatient visit 25 minutesLisa Renettakaren CALL CENTER TEAM LEADER Work Phone: [facility] C[facility] FMComment on above:Essential hypertension (CMS/HCC) (Primary Dx); Morbid obesity (CMS/HCC); Pain in left lumbar region of back; Essential (primary) hypertension (CMS/HCC)Start: 12-17-2023 End: 54-62-6398gfzyqowvmeRAFS AICHHOLZNot AvailableStart: 11-04-2023 End: 78-75-3634gbveeppxoxKFGF AICHHOLZNot AvailableStart: 10-29-2023 End: 92-93-5906Nnfgzatgb Result EncounterCorey Konstantin DO Work Phone: [facility] External Department UnsolicitedStart: 10-29-2023 End: 21-94-8635Htcrqqkbh Result EncounterCorey Konstantin DO Work Phone: [facility] External Department UnsolicitedStart: 10-08-2023 End: 98-66-7076jawellsbcyCEDKR FAZIONot AvailableStart: 09-24-2022 End: 91-01-0815vjsxynubkcDY BENITO BURTON .Facility:Q6Kbzqq: 09-10-2022 End: 63-06-9167jqyxafwfnbLKW HAYLEY AICHANGELOZFacility:O5Nuebg: 09-06-2022 End: 00-61-6139pzovszxibzLGB HAYLEY AICHANGELOZFacility:I6Jsqxm: 07-18-2022 End: 67-15-1168ejkjnhewbfOXM HAYLEY AICHHOLZFacility:P3Ghwqk: 06-27-2022 End: 18-54-8778qqwdhpggdxOR DOCTOR MISCFacility:L5Iyoty: 11-09-2021 End: 90-95-6335ilxclupzodZS BENITO BURTON .Facility: Procedures DateProcedureProcedure DetailPerforming ClinicianStart: 38-41-3146FB PELVIS W/ TRANSVAGINALCorey Konstantin DO Work Phone: Plan of Treatment DateCare ActivityDetailAuthorStart: 02-24-2025 End: 29-43-2686Aydrjqt encounter auttixhhf71/30/2025 3:00 PM EDT Procedure Visit [facility] [address] [place] [address] Jewels Lutz PA [address] [place] [address] [facility] Don OBGYNStart: 83-90-3470SVSXS- 19 Vaccine ( season)COVID-19 Vaccine ( season)[facility]OMS HealthcareStart: 27-69-4581Bwcwnzfoh for malignant neoplasm of breastMammogram NOMS HealthcareStart: 02-16-2024 End: 74-38-3328Nnqrnbq encounter esnztbtfd39/21/2024 6:40 PM EDT Office Visit [facility] [address] [place] [address] Hayley Lemus, CALL CENTER TEAM LEADER [address] [place] [address] NOMBrian CWM FMStart: 12-17-2023 End: 41-72-5634Xlfmswc encounter oysynbbha92/21/2024 2:00 PM EDT Office Visit [facility] [address] [place] [address] Hayley Lemus, CALL CENTER TEAM LEADER [address] [place] [address] ArrivedNOMS CWM FMComment on above:ArrivedStart: 2014 Screening for malignant neoplasm of cervixNOMS HealthcareStart: 34-03-2364VBQ Vaccines (1 - 3-dose SCDM series)HPV Vaccines (1 - 3-dose SCDM series)[facility]OMS HealthcareStart: 06-52-8149Enaxtbyzw for malignant neoplasm of cervixPap Smear NOMS HealthcareStart: 36-82-2686Hbjztgyxz B Vaccines (1 of 3 - 19+ 3-dose series)Hepatitis B Vaccines (1 of 3 - 19+ 3-dose series)NOM HealthcareStart: 26-23-1400Dwpxtkt of varicella vaccinationVaricella Vaccines (1 of 2 - 13+ 2- dose series)[facility] HealthcareStart: 14-41-5305AStM/Tdap/Td Vaccines (1 - Tdap) DTaP/Tdap/Td Vaccines (1 - Tdap)NOM HealthcareStart: 52-73-0536FQF Vaccines (1 of 1 - Standard series)MMR Vaccines (1 of 1 - Standard series)[facility] metabolic 2000 panel - Serum or [facility] HospitalInsulin [Units/volume] in Serum or [facility] Payers DatePayer CategoryPayerPolicy ID2015Medicaid[place] [employer] MED[place]ID [place] [id number] 2015-Present [address] [place] [id number] 2015Medicaid (Managed Care)[employer] [employer] Member Subscriber Plan / Payer (Effective 2015-Present) Name: Alan Rodriguez Relation to Subscriber: Self Name: Alan Rodriguez Payer ID: Not on file Group ID: Not on file Type: Not on file Address: [address] [place] [id number] .[id number] 2.1.787314.3.57[id number] .1.389917.3.57[id number] 2..0.1.968585.3.57[id number] 2.16.840.1.554644.3.57[id number] 2..840.1.566163.3.57[id number] 2.0.1.820820.3.57[id number] 2..0.1.609484.3.57[id number] 2.16840.1.345192.3.57[id number] Social History DateTypeDetailFacilityStart: 78-69-3316Lntfyvw smoking status NHISNever smoked tobaccoNOMS HealthcareStart: 38-76-4014Myjqgdw use and exposureSmokeless tobacco non-userNOMS HealthcareStart: 11-04-2023 End: 05-31-6106Qomjdnfjb beverage intakeLifetime non-drinker (finding)[facility] HealthcareStart: 11-04-2023 End: 48-49-7276Bsailya of Social functionNOMS HealthcareStart: 11-04-2023 End: 82-88-0676Ypcsuem use panelNOMS HealthcareStart: 60-04-7321Pqcjnis Comment caffine: 1 1/2 cups of coffee weeklyNOMS HealthcareStart: 47-19-1518Igv assigned at birthNot on fileNODE HealthcareTobacco smoking status NHISUnknown if ever smokedNOMS HealthcareSexFemale (finding)[facility] CenterStart: 35-52-1905Lpw Assigned At BirthOhioHealth Grady Memorial Hospitaltart: 20-96-4222CisJhnkuiAXJR Healthcare History of Present illness Narrative 12-17-2023 Note Date & EjpwBjyoHtpftrjk85-59-4360 History of Present illness Narrative* Hayley Lemus NP - 12/17/2023 2:36 PM EDTAssociated Problem(s): Pain in left lumbar region of back Will trial PT * Hayley Lemus NP - 12/17/2023 2:27 PM EDTAssociated Problem(s): Essential hypertension (CMS/HCC) Continue with losartan Remain off hydrochlorothiazide Fu in 3 months * LATASHA MONREAL - 12/17/2023 2:00 PM EDT Pt is still having pain in her back that comes and goes that has been an issue since nov. * Hayley Lemus NP - 12/17/2023 2:00 PM EDT Images from the original note were not included. Alan Rodriguez is a 38 y.o. female presents [...] weakness or weight loss. Risk factors include obesity.Treatments tried: tylenol prn, helps. The treatment provided [...] (Cozaar) 50 MG tablet documented in this encounterNODE Healthcare Evaluation note Note Date & TypeNoteFacilityEvaluation note* Diagnosis Essential hypertension (CMS/HCC)- Primary Unspecified essential [...] [facility] Evaluation note Note Date & TypeNoteFacilityEvaluation note* Diagnosis Essential hypertension (CMS/HCC)- Primary Unspecified essential hypertension Morbid obesity (CMS/HCC) Morbid obesity Pain in left lumbar region of back Essential (primary) hypertension (CMS/HCC) Unspecified essential hypertension documented in this encounter [facility] Evaluation note Note Date & TypeNoteFacilityEvaluation note* Diagnosis Onset Date Resolution Status Admit Date Essential hypertension acuteSept2024 11:31amGeneralized anxiety disorderacuteSeptember 2024 11:31amHyperinsulinemiaacuteSeptember 2024 11:31amMigraineacute January 13, 2025 11:31amMorbid obesityacuteSept2024 11:31am Obstructive sleep apnea syndromeacuteSept2024 11:31am [facility] Work Phone: Reason for referral (narrative) Note Date & TypeNoteFacilityReason for referral (narrative)No reason for referral information availableFairfield Medical Center Work Phone: Summary Purpose Family History No Family History Records FoundNo Family History Records Found Advance Directives Advance Directive Response Recorded Date/ Time Advance Directives No December 8:15pm Reason for Referral SpecialtyDiagnoses / ProceduresReferred By ContactReferred To ContactPhysical Therapy Diagnoses Pain in left lumbar region of back Procedures [place] OFFICE/OUTPATIENT NEW HIGH MDM 60 MINUTES Hayley Lemus NP [address] [place] [address] Referral IDStatusReasonStart DateExpiration DateVisits RequestedVisits [id number] Review Specialty Services Required / Chief Complaint and Reason for Visit Chief [...] and content) DATE CREATED AUTHOR 10/04/2022 [facility] DATE CREATED AUTHOR AUTHOR'S ORGANIZ ATION 12/19/2023 [facility] EPIC Reason for Visit (unrecogniz ed section and content) ReasonCommentsMed Refill Care Teams (unrecognized sec tion and content) Team MemberRelationshipSpecialtyStart DateEnd Date Dae Amato MD [address] [place] [address] PCP - [facility]10/23/23 Hayley Lemus NP [address] [place] [address] PCP - [facility]10/27/23 Hayley Lemus NP [address] [place] [address] Nurse PractitionerPiedmont Mcduffie04/28/22Team MemberRelationshipSpecialtyStart DateEnd Date Dae Amato MD [address] [place] [address] PCP - [facility]10/23/23 Hayley Lemus NP [address] [place] [address] PCP - [facility]10/27/23 Hayley Lemus NP [address] [place] [address] Nurse PractitionerPiedmont Mcduffie04/28/22Team MemberRelationshipSpecialtyStart DateEnd Date Dae Amato MD [address] [place] [address] [facility] - [facility]10/23/23 Hayley Lemus NP [address] [place] [address] [facility]10/27/23 Hayley Lemus NP [address] [place] [address] Nurse PractitionerPiedmont Mcduffie04/28/22 Team Status: Active Member Role Status Dates MARTHA Grijalva Primary Care Provider Active Team Status: Inactive Member Role Status Dates MARTHA Grijalva Primary Care Provider Active Start: January 13, 2025 End: January 13, 2025Hayley Lemus NP-CAttending ProviderActiveStart: January 13, 2025 End: January 13, 2025Team MemberRelationshipSpecialtyStart DateEnd Date Dae Amato MD [facility]10/23/23 Hayley Lemus NP [address] [place] [address] [facility]10/26/2410 Hayley Lemus NP Nurse [facility]04/28/22 Goals (unrecognized section and content) Goals may [...] BE BASED ON THE PRIMARY CLINICAL RECORDS. [employer] [facility]. provides no warranty or guarantee of the accuracy or completeness of information in this document.
--- OUTSIDE RECORDS SUMMARY | 2025-02-24 19:23 | XMS_ITS | Patient Health Record ---
Author Organization [facility] Address [address] [place] [address] Care Team Providers Care Personnel Recruiter Name Role Phone Dr. Julian Interiano Primary Care Provider [phone] Cassidy Vaz Reymundo [phone] Reason For Referral No Information Encounters Encounter Location Date Provider Diagnosis [facility] [address] [place] [address] 09/08/2024 Cassidy Sanderson Acute gingivitis, plaque induced K05.00 ; Other dental procedure status Z98.818 ; Encounter for dental examination and cleaning with abnormal findings Z01.21 and Dental caries on pit and fissure surface penetrating into dentin K02.52 Assessments Encounter Date Diagnosis (ICD Code) Assessment Notes Treatment Notes Treatment Clinical Notes Section Notes 09/08/2024 Acute gingivitis, plaque induced (ICD-10 - K05.00) 09/08/2024Other dental procedure status (ICD-10 - Z98.818)09/08/2024Encounter for dental examination and cleaning with abnormal findings (ICD-10 - Z01.21) 09/08/2024Dental caries on pit and fissure surface penetrating into dentin (ICD- 10 - K02.52) Plan Of Treatment Next Appt Details Provider Name:Cassidy Sanderson , 04/26/2025 01:00:00 PM, [address] [place], [address], Insurance Providers Payer Name Payer Address Payer Phone Subscriber Number Group Number Insured Name Patient Relationship to Insured Coverage Start Date Coverage End Date Pratibha Sanchez [address] [place] [address] [id number] [place], PARTHelf - patient is the /zDental MEDICAID [facility] after [place]UCKEY[place]-termed [address] [place] [address] [id number], PARTHelf - patient is the insured 3Dental Craig EnvolvePO [address] [address] [place] [address] [phone], PARTHelf - patient is the insured 3Dental Wrap [facility] [facility] [address] [facility] [address] [place] [phone] [id number], PARTHelf - patient is the [id number] 2022
--- OUTSIDE RECORDS SUMMARY | 2025-02-24 19:24 | XMS_ITS | Encounter Summary ---
Author Organization [facility] Address [address] [facility] [facility] [address] Care Team Providers Care Sign Builder Supervisor Name Role Phone Hayley Lemus DIRECTOR OF DESIGN Unavailable [phone] Dae Amato MD Primary Care Provider [phone] Hayley Lemus DIRECTOR OF DESIGN Unavailable [phone] Encounter Details DateTypeDepartmentCare Team (Latest Contact Info)Dwaeqjewiqn24/30/2025amboo flowsheet [facility]IVAS [address] [place] [address] Jewels Lutz PA [address] [place], [facility] Social History Tobacco UseTypesPacks/DayYears UsedDateSmoking Tobacco: NeverSmokeless Tobacco: NeverAlcohol UseStandard Drinks/WeekCommentsNever0 (1 standard drink = 0.6 oz pure alcohol)caffine: 1 1/2 cups of coffee weeklyCommentsNoSex and Gender InformationValueDate RecordedSex Assigned at BirthNot on fileLegal Sex Ehnmop0207/10/2022 7:06 PM EDTGender IdentityNot on fileSexual OrientationNot on filedocumented as of this encounter Plan of Treatment DateTypeDepartsurgeons choice medical centerCare Team (Latest Contact Info)Scdrcgmdico80/09/2026 3:00 PM ESTProcedure Visit [facility] [address] [place] [address] Jewels Lutz, PA [address] [place] [address] [place] [address] documented as of this encounter Visit Diagnoses Not on filedocumented in this encounter Care Teams Team MemberRelationshipSpecialtyStart DateEnd Date Dae Amato MD [facility] - [facility]10/[facility]/23 Hayley Lemus NP [address] [place] [address] PCP - [facility]10/26/2410 Hayley Lemus NP Nurse PractitionerFamiPhoebe Putney Memorial Hospital04/28/22documented as of this encounter
--- OUTSIDE RECORDS SUMMARY | 2025-02-24 19:24 | XMS_ITS | Clinical Summary ---
Author Organization [facility] Address [address] [place] [address] Care Team Providers Care Mud Analysis Operator Name Role Phone Hayley Lemus VISION TEACHER Unavailable [phone] Dae Amato MD Primary Care Provider [phone] Hayley Lemus VISION TEACHER Unavailable [phone] Allergies Active AllergyReactionsCriticalityNoted DateCommentsPenicillin G010/02/2023 Other Reaction(s): Unknown Medications MedicationSigDispense QuantityRefillsLast FilledStart DateEnd DateStatus busPIRone (Buspar) 5 MG tablet Indications:Generalized anxiety disorderTake 1 tablet (5 mg) by mouth in the morning and 1 tablet (5 mg) before bedtime. 60 tablet ctive losartan (Cozaar) 50 MG tablet Indications:Essential (primary) hypertensionTake 1 tablet (50 mg) by mouth Daily 90 tablet Discontinued levoFLOXacin (Levaquin) 750 MG tablet TAKE 1 TABLET BY MOUTH DAILY for 5 (FIVE) daysDiscontinued Active Problems ProblemNoted DateDiagnosed DatePain in left lumbar region of back12/17/2023 Assessment & Plan (12/17/2023 2:36 PM EDT): Will trial PT Essential zwqyxinsdjum80/09/2024 Assessment & Plan (12/17/2023 2:27 PM EDT): Continue with losartan Remain off hydrochlorothiazide Fu in 3 months Assessment & Plan (11/04/2023 10:38 AM EDT): Has lost about 35 pounds since last visit She is watching diet, exercise, we will stop hydrochlorothiazide Cont losartan, and will fu in 6 weeks History of COVID-19011/04/20234441Sjgydtwxwznqllbd18/09/9695Qkxmzodi69/09/2024Morbid evcamon2911/04/2023 Assessment & Plan (11/04/2023 10:38 AM EDT): Continue current therapy Obstructive sleep apnea udpgpeux66/09/2024Generalized anxiety ipqjapsr75/22/2024 Encounters DateTypeDepartmentCare DnetRblelxpqhsr19/30/2025 3:00 PM EDTProcedure Visit [facility] [address] [place] [address] Jewels Lutz PA Well woman exam with routine gynecological exam; Encounter for screening mammogram for malignant neoplasm of ocherv7202/24/2025 Bamboo flowsheet [facility] [address] [facility] [place] [address] Jewels Lutz PA from Last 3 Months Social History Tobacco UseTypesPacks/DayYears UsedDateSmoking Tobacco: NeverSmokeless Tobacco: Never Tobacco Cessation:Counseling Given: Not Answered Alcohol UseStandard Drinks/WeekCommentsNever0 (1 standard drink = 0.6 oz pure alcohol)caffine: 1 1/2 cups of coffee weeklyCommentsNoSex and Gender InformationValueDate RecordedSex Assigned at BirthNot on fileLegal SexFemale 07/10/2022 7:06 PM EDTGender IdentityNot on fileSexual OrientationNot on file Last Filed Vital Signs Vital SignReadingTime TakenCommentsBlood Bozupfxg458/9208 2:04 PM EDT Jobyf3905 2:04 PM OFUKfcyajmpuqa82.7 ??C (98 ??F)12/17/2023 2:04 PM EDT Respiratory Hnyk9776 2:04 PM EDTOxygen Sgvszxchxu36%12/17/2023 2:04 PM EDTInhaled Oxygen Concentration--Emmyva96 kg (191 lb 12.8 oz)12/17/2023 2:04 PM ILQRlxgdb049.5 cm (5' 2 )12/17/2023 2:04 PM EDTBody Mass Index35.0812/17/2023 2:04 PM EDT Plan of Treatment DateTypeDepartmentCare Team (Latest Contact Info)Yeiyxuhtjew66/09/2026 3:00 PM ESTProcedure Visit [facility] Don OBGYSage [address] [place] [address] Jewels Lutz PA [address] [place] [address] Health MaintenanceDue DateLast DoneCommentsMMR Vaccines (1 of 1 - Standard series)1985DTaP/Tdap/Td Vaccines (1 - Tdap)07/22/1991Varicella Vaccines (1 of 2 - 13+ 2-dose series)1997Hepatitis B Vaccines (1 of 3 - 19+ 3-dose series)07/22/2003Pap Smear2005HPV Vaccines (1 - 3-dose SCDM series) 07/22/2011Cervical Cancer Bvqtmhjpf68/26/2015HPV/Scmlhu6007/21/2014Mammogram 5COVID-19 Vaccine ( season)2024HIB VaccinesAged OutNo longer eligible based on patient's age to complete this topicHepatitis A VaccinesAged OutNo longer eligible based on patient's age to complete this topic IPV VaccinesAged OutNo longer eligible based on patient's age to complete this topicInfluenza VaccineDiscontinuedMeningococcal B VaccineAged OutNo longer eligible based on patient's age to complete this topicMeningococcal VaccineAged OutNo longer eligible based on patient's age to complete this topicPneumococcal Vaccine: Pediatrics (0 to 5 Years) and At-Risk Patients (6 to 64 Years)Aged Out No longer eligible based on patient's age to complete this topicRotavirus VaccinesAged OutNo longer eligible based on patient's age to complete this topic Insurance Care Teams Team MemberRelationshipSpecialtyStart DateEnd Date Dae Amato MD [facility] - [facility]10[facility]23 Hayley Lemus NP [address] [place] [address] PCP - [facility]10/26/2410 Hayley Lemus NP Nurse PractitionerFamiFloyd Polk Medical Center04/28/22
--- OUTSIDE RECORDS SUMMARY | 2025-02-24 19:24 | XMS_ITS | Clinical Summary ---
Author Organization [employer] tem Address [id number] [address] [place] [address] Care Team Providers Care Backside Grinder Name Role Phone Hayley Lemus APRN-STRUCTURAL ENGINEERING TECHNICIAN Primary Care Provider Allergies Active AllergyReactionsCriticalityNoted VveoTzhbfzddCjyjdvnyszd08/14/2019 Medications MedicationSigDispense QuantityRefillsLast FilledStart DateEnd DateStatus predniSONE (DELTASONE) 10 mg tablet Indications:Chronic FOUZIA (middle ear effusion), left6 tabs daily x 2 days, 5 tabs daily x 2 days, 4 tabs x 2 days, 3 tablets x 2 days, 2 tablets x 2 days, and 1 tab x 2 days. 42 tablet 09/08/2018Active Additional Information Patient not taking.Reported on 01/04/2019 cetirizine (ZyrTEC) 10 mg tablet Take 10 mg by mouth daily.Active triamcinolone (NASACORT) 55 mcg nasal inhaler INHALE 2 (TWO) sprays IN EACH NOSTRIL WEURQ008Active eslgaosz-jdehnomif-gyoozaqnuvqgq (MAXITROL) 3.5mg/mL-10,000 unit/mL-0.1 % ophthalmic suspension Indications:Noninfectious otitis externa of left ear, unspecified chronicity, unspecified typeInstill 3-4 gtt in the affected ear(s) TID for 10 days 5 mL 01/04/2019Active salsalate (DISALCID) 500 mg tablet Take 1 tablet (500 mg total) by mouth 2 (two) times a day. 60 tablet Active Active Problems ProblemNoted DateDiagnosed DateBilateral temporomandibular joint pain01/04/2019 Noninfectious otitis externa of left ear01/04/2019 Resolved Problems ProblemNoted DateDiagnosed DateResolved DateChronic FOUZIA (middle ear effusion), left Social History Tobacco UseTypesPacks/DayYears UsedDateSmoking Tobacco: NeverSmokeless Tobacco: Never Tobacco Cessation:Counseling Given: Not Answered Alcohol UseStandard Drinks/WeekCommentsNot Currently0 (1 standard drink = 0.6 oz pure alcohol)ChildcareAnswerDate XjhvorxfHoggvbsdmQznpiuh36/12/2019Employment AnswerDate GpyptpbbFuzvjpxzbwHuqxzvr01/12/2019Purpose - LifeAnswerDate Recorded Purpose and direction in hnjdHoirjbm13/11/2021CommentsUnknownSex and Gender InformationValueDate RecordedSex Assigned at BirthNot on fileLegal Sex Cqijxm8812/01/2014 11:23 AM EDTGender IdentityNot on fileSexual OrientationNot on file Last Filed Vital Signs Vital SignReadingTime TakenCommentsBlood Tuyvhvpp508/7605 4:16 PM EDT Tipjd086102/15/2022 3:57 PM VQBKaylrpaaxau33.7 ??C (98.1 ??F)02/15/2022 3:57 PM EDTRespiratory Zhtb7887 3:57 PM EDTOxygen Jhoqtwvwil65%02/15/2022 3:57 PM EDTInhaled Oxygen Concentration--Pryqcv65.3 kg (210 lb)02/15/2022 3:57 PM EDT Fkbona754.5 cm (5' 2 )02/15/2022 3:57 PM EDTBody Mass Index38.411 3:57 PM EDT Plan of Treatment Health MaintenanceDue DateLast DoneCommentsDTaP,Tdap and Td Vaccines (5 - Tdap) , 10/05/1987, 07/15/1985, Additional history exists Depression Siicwzbbl72/26/1997Tobacco Inixjhann70/26/1997Pap Smear2005 Adult BMI Cnwuxvdxs58Influenza Gbaiwyg3112/27/2024 Medical Devices Not on file Insurance Care Teams Team MemberRelationshipSpecialtyStart DateEnd Date Hayley Lemus, [employer]ILRO[employer] CARMAN-STRUCTURAL ENGINEERING TECHNICIAN PCP - GeneralNurse Eovwhexsgpjx42/21/22
--- OUTSIDE RECORDS SUMMARY | 2025-02-24 19:24 | XMS_ITS | Encounter Summary ---
Author Organization [facility] Address [address] [place] [address] Care Team Providers Care Legend Maker Name Role Phone Hayley Lemus MUD TRUCKER Unavailable [phone] Dae Amato MD Primary Care Provider [phone] Hayley Lemus MUD TRUCKER Unavailable [phone] Encounter Details DateTypeDepartmentCare Team (Latest Contact Info)Hrudqwcagxa24/03/2024Clinisync Result Encounter [facility] Unsolicited Bre Pryor DO [address] Molly Ochoa, [facility] Social History Tobacco UseTypesPacks/DayYears UsedDateSmoking Tobacco: Never Assessed CommentsNoSex and Gender InformationValueDate RecordedSex Assigned at BirthNot on fileLegal HjjZaflqo64/15/2023 7:06 PM EDTGender IdentityNot on fileSexual OrientationNot on filedocumented as of this encounter Plan of Treatment DateTypeDepartmentCare Team (Latest Contact Info)Vqmolgxpzsh67/09/2026 3:00 PM ESTProcedure Visit [facility] [address] [place] [address] Jewels Lutz PA [address] [place] [address] documented as of this encounter Procedures Procedure NamePriorityDate/TimeAssociated DiagnosisCommentsUS PELVIS W/ OMMCBLEZYYAT96/03/2024 7:45 AM EDT documented in this encounter Results * US PELVIS W/ TRANSVAGINAL (10/29/2023 7:45 AM EDT)Anatomical RegionLaterality ModalityOtherSpecimen (Source)Anatomical Location / LateralityCollection Method / VolumeCollection TimeReceived Time10/29/2023 7:45 AM EDT Narrative 10/29/2023 7:48 AM EDT [facility] ?[address] ? [place] [id number] ? Ultrasound Report ? Signed ? Patient: ALAN BRAVO L ?MR#: [id number] ?? : 1985 ?Acct:[id number] ?? Age/Sex: 38 / F ?ADM Date: 10/27/23 ?? Loc: US ? Attending Dr: Bre Pryor D.O. ? Ordering Physician: Bre Pryor D.O. ?? Date of Service: 10/27/23 ?? Procedure(s): US pelvis w/ transvaginal ?? Accession Number(s): [id number] ? cc: Bre Pryor D.O. ? [facility] ? [address] ? [place] [address] ? Patient Name: ?? ALAN L LAWRENCE ? MRN: [facility]:[id number] ? date: 1985 ?Sex: F ?? Assigned Patient Location: US ?? Current Patient Location: ? Accession/Order Number: [id number] ?? Exam Date: 10/27/2023 ??17:06 ?Report Date: 10/29/2023 ??07:45 ? At the request of: ?? BRE ??KONSTANTIN ? Procedure: ??US pelvis w/ transvaginal ? EXAMINATION: US pelvis w/ transvaginal ? HISTORY: Polycystic Ovarian Syndrome E28.2 ? COMPARISON: Ultrasound pelvis 05/02/2017 ? TECHNIQUE: Transabdominal and/or transvaginal sonographic examination was ?? performed as indicated by examination type. ? FINDINGS: ?? UTERUS: Normal size and appearance. Multiple nabothian cysts within sin of ?? cervix, largest is 1.6 cm. Uterus size: 11.0 x 5.8 x 6.3 cm ?? ENDOMETRIUM: Normal homogeneous appearance. Endometrial thickness: 8 mm ? RIGHT OVARY: Normal size and appearance. Duplex Doppler demonstrates normal ?? waveform and flow; resistive index 0.6. Ovary size: 3.3 x 2.2 x 2.4 cm ? LEFT OVARY: Not seen. Obscuring overlying bowel gas. . ? CUL-DE-SAC: Unremarkable. No significant free fluid. ?? BLADDER: Unremarkable. ?? OTHER: None. ? US/ pelvis w/ transvaginal ?? IMPRESSION: ? 1. The left ovary was not seen (obscured by overlying bowel gas), but right ?? ovary shows no evidence of polycystic ovarian disease. ? Electronically authenticated by: PIETRO ??MATT ?? Date: 10/29/2023 ??07:45 ? Dictated By: ?Pietro Solorzano M.D. ? Signed By: ?10/29/23747 ? DD/ 0745 ? TD/TT: ? Probation Agent: Procedure Note Radiology, Radiologist, - 10/29/2023 [place] [address] Ultrasound Report Signed Patient: ALAN BRAVO LMR#: [id number] : 1985Acct:[id number] Age/Sex: 38 / FADM Date: 10/27/23 Loc: US Attending Dr: Bre Pryor D.O. Ordering Physician: Bre Pryor D.O. Date of Service: 10/27/23 Procedure(s): US pelvis w/ transvaginal Accession Number(s): [id number] cc: Bre Pryor D.O. The [place] [id number] Patient Name: ALAN BRAVO MRN: [id number] date: 1985 Sex: F Assigned Patient Location: US Current Patient Location: Accession/Order Number: [id number] Exam Date: 10/27/2023 17:06 Report Date: 10/29/2023 07:45 At the request of: BRE PRYOR Procedure: US pelvis w/ transvaginal EXAMINATION: US pelvis w/ transvaginal HISTORY: Polycystic Ovarian Syndrome E28.2 COMPARISON: Ultrasound pelvis 05/02/2017 TECHNIQUE: Transabdominal and/or transvaginal sonographic examination was performed as indicated by examination type. FINDINGS: UTERUS: Normal size and appearance. Multiple nabothian cysts within wallsof cervix, largest is 1.6 cm. Uterus size: 11.0 x 5.8 x 6.3 cm ENDOMETRIUM: Normal homogeneous appearance. Endometrial thickness: 8 mm RIGHT OVARY: Normal size and appearance. Duplex Doppler demonstratesnormal waveform and flow; resistive index 0.6. Ovary size: 3.3 x 2.2 x 2.4 cm LEFT OVARY: Not seen. Obscuring overlying bowel gas. . CUL-DE-SAC: Unremarkable. No significant free fluid. BLADDER: Unremarkable. OTHER: None. US/US pelvis w/ transvaginal IMPRESSION: 1. The left ovary was not seen (obscured by overlying bowel gas), butright ovary shows no evidence of polycystic ovarian disease. Electronically authenticated by: PIETRO SOLORZANO Date: 10/29/2023 07:45 Dictated By: Pietro Solorzano M.D. Signed By:10/29/23 0748 DD/ 0745 TD/TT: Probation Agent: Authorizing ProviderResult TypeResult StatusCorey Konstantin DOCLINISYNC IMAGINGFinal Result documented in this encounter Visit Diagnoses Not on filedocumented in this encounter Care Teams Team MemberRelationshipSpecialtyStart DateEnd Date Dae Amato MD [facility] - [facility] Hayley Lemus NP [address] [place] [address] PCP - [facility]10/26/2410 Hayley Lemus NP Nurse PractitionerFamily Medicine04/28/22documented as of this encounter
== END 2025-02-24 19:17 | disposition home or self-care (01) ==
LOC: LAB 19:16
PROVIDERS: PCP Nurse Practitioner; Visit Provider Physician Assistant
DX: Z01.419 Encounter for gynecological examination (general) (routine) without abnormal findings (principal)
CPT/HCPCS: 87624; 88175